=== PATIENT | female | born 1940 | race Caucasian/White ===

== ENCOUNTER → 2016-09-20 | Outpatient (CLI) | payer MEDICARE, OTHER ==
[2016-09-20 10:40] LABS: Blood Urea Nitrogen 27 mg/dL (7-17); Non-African American GFR(MDRD) 53 (>60 ml/min/1.73 sqM)
--- NOTE | 2016-09-20 17:28 | CT ---
EXAMINATION TYPE: CT ChestAbdPelvis w con DATE OF EXAM: 09/20/2016 12:15 PM INDICATION: rectal ca COMPARISON: 09/19/2015 CT DLP: 1048 mGycm CONTRAST: Performed with Oral Contrast and with IV Contrast, patient injected with 80 mL of Visipaque 320. TECHNIQUE: Axial images at 5 mm thick sections. Reconstructed images in the coronal plane. Delayed images through the kidneys. FINDINGS: CT CHEST: Portion of the thyroid visualized is normal. Some streak atelectasis or scarring is in the posterior right lung base this is improved from the com parison 09/19/2015 There is a prominent pretracheal lymph node above the clarence estimated at 1.0 cm with a large fatty h ilum. This is an interval finding. The ascending aorta diameter at the level of the main pulmonary artery is 2.9 cm. The main pulmonary artery diameter at the bifurcation is 2.2 cm. Some coronary artery calcification is present. CT ABDOMEN: Liver: Tiny cyst is within the left lobe of the liver. Couple of additional small hypodensities too s mall to classify may be additional cyst. There is a cyst at the inferior right lobe liver. Spleen: There is a large calcification at the hilum of the spleen. Couple of punctate hypodensities a re within the medial spleen could be small splenic cysts. Pancreas: Normal Adrenal glands: Left adrenal gland is slightly prominent at 0.9 cm. This is somewhat hypodense and is present previously. Right adrenal gland appears normal. Gallbladder: Normal Kidneys: No masses are evident. No hydronephrosis is present. There is a superior anterior cortical renal cyst on the left kidney. Kidneys otherwise appear unremarkable. Delayed images were obtained through the kidneys, which remain unremarkable. Aorta: Vascular calcification is within the aorta. Inferior vena cava: Normal. CT PELVIS: There is perirectal thickening. This extends to the sigmoid colon. This is improved from the comparis on. Bowel loops otherwise appear unremarkable. There are loops of bowel which are incompletely disten ded or lack oral contrast limiting their evaluation. Diverticular changes are within the sigmoid colo n. Appendix: Not identified Urinary bladder: Urinary bladder appears within normal limits. Mild wall thickening diffusely is not excluded. Genitourinary structures: There is a hypodense structure at the vaginal cuff region. Correlate with t he patient's surgical history. Thickened endometrium within the atrophic uterus is within the differe ntial. An ovarian cyst could be considered. The ovaries are not identified. This area measures 2.3 x 3.3 x 2.4 cm. This area appears to correspond to the previous examination suggesting this was the [place]. Osseous structures: No suspicious lytic or sclerotic lesions. There is an old superior T12 endplate c ompression deformity. IMPRESSIONS: 1. No suspicious changes for metastatic disease. 2. Pelvic ultrasound is recommended to reevaluate what appears to be low density thickening through t he endometrial canal of the uterus. 3. Perirectal thickening which appears to be improving from comparison.
== END | disposition home or self-care (01) ==
LOC: RADCTMAIN 09:55
PROVIDERS: ATTEND Internal Medicine Hematology & Oncology
DX: Z03.89 Encounter for observation for other suspected diseases and conditions ruled out (principal); C21.1 Malignant neoplasm of anal canal
CPT/HCPCS: 82565; 84520; 71260; 74177; 36415; Q9967

== ENCOUNTER 2016-10-07 09:37 | Emergency (ER) | payer MEDICARE, OTHER ==
[2016-10-07] MEDS ORDERED: SODIUM CHLORIDE 0.9% 1,000 ML IV STA ×2 (09:56)
[2016-10-07] MEDS ORDERED: ACETAMINOPHEN TAB 500 MG TAB PO STA (09:56)
[2016-10-07 10:13] LABS: Anisocytosis Slight; Basophils % (A) 0 %; CH 30.9; CHCM 32.3; Eosinophils % (A) 0 %; HCT 30.1 % (34.0-46.0); HDW 2.94; HGB 9.8 gm/dL (11.4-16.0); Luc # (Auto) 0.18; Luc % (Auto) 3; Lymphocytes # (A) 0.4 k/uL (1.0-4.8); Lymphocytes % (A) 7 %; MCH 31.4 pg (25.0-35.0); MCHC 32.6 g/dL (31.0-37.0); MCV 96.4 fL (80.0-100.0); Mean Platelet Volume 6.7; Monocytes # (A) 0.3 k/uL (0-1.0); Monocytes % (A) 5 %; Neutrophils # (A) 5.9 k/uL (1.3-7.7); Neutrophils % (A) 86 %; RBC 3.12 m/uL (3.80-5.40); WBC 6.9 k/uL (3.8-10.6); WBC (Perox) 7.44
[2016-10-07 10:17] LABS: INR 1.1 (<1.1); Partial Thromboplastin Time 29.2 sec (22.0-30.0); Prothrombin Time 10.8 sec (9.0-12.0)
--- NOTE | 2016-10-07 10:24 | ED ---
General Adult HPI - General Chief complaint: Weakness Stated complaint: Weakness Time Seen by Provider: 10/07/16 09:40 Source: EMS, RN notes reviewed Mode of arrival: EMS - History of Present Illness Initial comments: Patient 76-year-old female who presents emergency room today by EMS with a chief complaint of weakness that has been increased over the last week. Patient does admit that when she tries to stand up she feels like her legs are weak. She states she's noticed that she has been ongoing and increasing over the last week. She denies any other complaints or symptoms. Does admit to a history of anal cancer and states she is in remission. Patient states she was unaware of fever. She denies any cough congestion. Patient denies any recent shortness of breath, chest pain, back pain, abdominal pain, nausea or vomiting, numbness or tingling, dysuria or hematuria, constipation or diarrhea, headaches or visual changes, or any other complaints. - Related Data Home Medications Medication Instructions Recorded Confirmed ALPRAZolam [Xanax] 0.25 mg PO BID 10/07/16 10/07/16 Simvastatin [Zocor] 40 mg PO HS 10/07/16 10/07/16 Previous Rx's Medication Instructions Recorded Donepezil HCl [Aricept] 5 mg PO HS #30 tablet 05/10/16 Mirtazapine 30 mg PO HS #30 tablet 05/10/16 Nitrofurantoin Monohyd/M-Cryst 100 mg PO Q12HR #14 cap 10/07/16 [Macrobid] Allergies Allergy/AdvReac Type Severity Reaction Status Date / Time No Known Allergies Allergy Verified 10/07/16 10:03 Review of Systems ROS Statement: Those systems with pertinent positive or pertinent negative responses have been documented in the HPI. ROS Other: All systems not noted in ROS Statement are negative. Past Medical History Past Medical History: Cancer, Hyperlipidemia, Hypertension, Memory Impairment, Pneumonia, Pulmonary Embolus (PE), Syncope Additional Past Medical History / Comment(s): CANCER- CHEMO/RADIATION OF THE ANAL canal 2013, murmur, arthritis, anemia History of Any Multi-Drug Resistant Organisms: None Reported Past Surgical History: Tonsillectomy Additional Past Surgical History / Comment(s): bilat lasik sx. colonoscopy Past Anesthesia/Blood Transfusion Reactions: No Reported Reaction Past Psychological History: Anxiety, Depression Smoking Status: Current every day smoker Past Alcohol Use History: None Reported, Rare Additional Past Alcohol Use History / Comment(s): started smoking as a teenager- used to smoke 1 ppd now smokes 3 cig per day but pt stated does inhale them. Past Drug Use History: None Reported - Past Family History Father Family Medical History: Cancer Mother Family Medical History: Cancer Brother(s) Family Medical History: Cancer Sister(s) Family Medical History: Cancer General Exam - General Exam Comments Initial Comments: General: The patient is awake and alert, in no distress, and does not appear acutely ill. Eye: Pupils are equal, round and reactive to light, extra-ocular movements are intact. No nystagmus. There is normal conjunctiva bilaterally. No signs of icterus. Ears, nose, mouth and throat: There are moist mucous membranes and no oral lesions. Neck: The neck is supple, there is no tenderness or JVD. Cardiovascular: There is a regular rate and rhythm. No murmur, rub or gallop is appreciated. Respiratory: Lungs are clear to auscultation, respirations are non-labored, breath sounds are equal. No wheezes, stridor, rales, or rhonchi. Gastrointestinal: Soft, non-distended, non-tender abdomen without masses or organomegaly noted. There is no rebound or guarding present. No CVA tenderness. Bowel sounds are unremarkable. Musculoskeletal: Normal ROM, no tenderness. Strength 5/5. Sensation intact. Pulses equal bilaterally 2+. Neurological: A&O x 3. CN II-XII intact, There are no obvious motor or sensory deficits. Coordination appears grossly intact. Speech is normal. Skin: Skin is warm and dry and no rashes or lesions are noted. Psychiatric: Cooperative, appropriate mood & affect, normal judgment. Course Vital Signs 10/07/16 10/07/16 09:39 10:43 Temperature 101.3 F H 101 F H Pulse Rate 95 93 Respiratory 20 20 Rate Blood Pressure 143/65 150/65 O2 Sat by Pulse 96 94 L Oximetry EKG Findings - EKG Comments: EKG Findings:: EKG is performed at 1035: A 12-lead EKG was performed and interpreted by me as showing the following: Rate is 95, and rhythm is normal sinus. There are normal QRS complexes and normal R-wave progression. ST segments have no elevation or depression, and ND segments appear normal. Medical Decision Making - Medical Decision Making Patient reexamined at this time shows no signs of distress. Patient did have fever at triage. Patient labs been reviewed and no elevated white count. Patient does have possible mild urinary tract infection. Given dose of Rocephin here in the emergency room. Patient has no physical complaints other than feeling generalized weakness for the past week. Patient's chest x-ray is negative for any sign of pneumonia. She be continued on antibiotics cover for urinary tract infection advised to follow-up the family doctor. It was discussed with patient about admission to the hospital. She states she does not want to stay and would rather go home. Case discussed in detail with attending physician Dr. Prabhakar - Lab Data Result diagrams: 10/07/16 09:46 10/07/16 09:46 Lab Results 10/07/16 10/07/16 10/07/16 Range/Units 09:46 09:46 09:46 WBC 6.9 (3.8-10.6) k/uL RBC 3.12 L (3.80-5.40) m/uL Hgb 9.8 L (11.4-16.0) gm/dL Hct 30.1 L (34.0-46.0) % MCV 96.4 (80.0-100.0) fL MCH 31.4 (25.0-35.0) pg MCHC 32.6 (31.0-37.0) g/dL RDW 17.0 H (11.5-15.5) % Plt Count 157 (150-450) k/uL Neutrophils % 86 % Lymphocytes % 7 % Monocytes % 5 % Eosinophils % 0 % Basophils % 0 % Neutrophils # 5.9 (1.3-7.7) k/uL Lymphocytes # 0.4 L (1.0-4.8) k/uL Monocytes # 0.3 (0-1.0) k/uL Eosinophils # 0.0 (0-0.7) k/uL Basophils # 0.0 (0-0.2) k/uL Anisocytosis Slight PT (9.0-12.0) sec INR (<1.1) APTT (22.0-30.0) sec Sodium 139 (137-145) mmol/L Potassium 3.8 (3.5-5.1) mmol/L Chloride 105 (98-107) mmol/L Carbon Dioxide 23 (22-30) mmol/L Anion Gap 11 mmol/L BUN 30 H (7-17) mg/dL Creatinine 1.05 H (0.52-1.04) mg/dL Est GFR (MDRD) Af Amer >60 (>60 ml/min/1.73 sqM) Est GFR (MDRD) Non-Af 51 (>60 ml/min/1.73 sqM) Glucose 123 H (74-99) mg/dL Plasma Lactic Acid Phu 1.2 (0.7-2.0) mmol/L Calcium 9.2 (8.4-10.2) mg/dL Total Bilirubin 0.7 (0.2-1.3) mg/dL AST 40 H (14-36) U/L ALT 28 (9-52) U/L Alkaline Phosphatase 68 (38-126) U/L Total Creatine Kinase (30-135) U/L CK-MB (CK-2) (0.0-2.4) ng/mL CK-MB (CK-2) Rel Index Troponin I (0.000-0.034) ng/mL Total Protein 7.3 (6.3-8.2) g/dL Albumin 3.8 (3.5-5.0) g/dL Urine Color Urine Appearance (Clear) Urine pH (5.0-8.0) Ur Specific [place] (1.001-1.035) Urine Protein (Negative) Urine Glucose (UA) (Negative) Urine Ketones (Negative) Urine Blood (Negative) Urine Nitrite (Negative) Urine Bilirubin (Negative) Urine Urobilinogen (<2.0) mg/dL Ur Leukocyte Esterase (Negative) Urine RBC (0-5) /hpf Urine WBC (0-5) /hpf Ur Squamous Epith Cells (0-4) /hpf Hyaline Casts (0-2) /lpf Granular Casts (0) /lpf Urine Mucus (None) /hpf 10/07/16 10/07/16 10/07/16 Range/Units 09:46 09:46 10:11 WBC (3.8-10.6) k/uL RBC (3.80-5.40) m/uL Hgb (11.4-16.0) gm/dL Hct (34.0-46.0) % MCV (80.0-100.0) fL MCH (25.0-35.0) pg MCHC (31.0-37.0) g/dL RDW (11.5-15.5) % Plt Count (150-450) k/uL Neutrophils % % Lymphocytes % % Monocytes % % Eosinophils % % Basophils % % Neutrophils # (1.3-7.7) k/uL Lymphocytes # (1.0-4.8) k/uL Monocytes # (0-1.0) k/uL Eosinophils # (0-0.7) k/uL Basophils # (0-0.2) k/uL Anisocytosis PT 10.8 (9.0-12.0) sec INR 1.1 (<1.1) APTT 29.2 (22.0-30.0) sec Sodium (137-145) mmol/L Potassium (3.5-5.1) mmol/L Chloride (98-107) mmol/L Carbon Dioxide (22-30) mmol/L Anion Gap mmol/L BUN (7-17) mg/dL Creatinine (0.52-1.04) mg/dL Est GFR (MDRD) Af Amer (>60 ml/min/1.73 sqM) Est GFR (MDRD) Non-Af (>60 ml/min/1.73 sqM) Glucose (74-99) mg/dL Plasma Lactic Acid Phu (0.7-2.0) mmol/L Calcium (8.4-10.2) mg/dL Total Bilirubin (0.2-1.3) mg/dL AST (14-36) U/L ALT (9-52) U/L Alkaline Phosphatase (38-126) U/L Total Creatine Kinase 121 (30-135) U/L CK-MB (CK-2) 0.9 (0.0-2.4) ng/mL CK-MB (CK-2) Rel Index 0.7 Troponin I 0.012 (0.000-0.034) ng/mL Total Protein (6.3-8.2) g/dL Albumin (3.5-5.0) g/dL Urine Color Yellow Urine Appearance Clear (Clear) Urine pH 6.5 (5.0-8.0) Ur Specific [place] 1.015 (1.001-1.035) Urine Protein 2+ H (Negative) Urine Glucose (UA) Negative (Negative) Urine Ketones Negative (Negative) Urine Blood Moderate H (Negative) Urine Nitrite Negative (Negative) Urine Bilirubin Negative (Negative) Urine Urobilinogen <2.0 (<2.0) mg/dL Ur Leukocyte Esterase Negative (Negative) Urine RBC 12 H (0-5) /hpf Urine WBC 6 H (0-5) /hpf Ur Squamous Epith Cells <1 (0-4) /hpf Hyaline Casts 1 (0-2) /lpf Granular Casts 5 (0) /lpf Urine Mucus Rare H (None) /hpf Disposition Clinical Impression: UTI (urinary tract infection) Disposition: HOME SELF-CARE Condition: Good Instructions: Urinary Tract Infection in Women (ED) Additional Instructions: Please use biotic as prescribed for urinary tract infection. Please continue Tylenol for fevers every 6 hours. Please follow-up with family doctor in the next 2 days. Please return to emergency room if the symptoms increase or worsen or for any other concerns. Prescriptions: Nitrofurantoin Monohyd/M-Cryst [Macrobid] 100 mg PO Q12HR #14 cap Time of Disposition: 12:04
[2016-10-07 10:31] LABS: Appearance,Urine Clear (Clear); Bilirubin,Urine Negative (Negative); Glucose,Urine (UA) Negative (Negative); Granular Casts,Urine 5 /lpf (0); Ketones,Urine Negative (Negative); Leukocyte Esterase,Urine Negative (Negative); Mucus,Urine Rare /hpf; Nitrite,Urine Negative (Negative); PH, Urine 6.5 (5.0-8.0); Particle Count 5339; Protein,Urine 2+ (Negative); RBC,Urine 12 /hpf (0-5); Specific Gravity,Urine 1.015 (1.001-1.035); Squamous Epithelial Cell,Urine <1 /hpf (0-4); UA Billing (MACRO vs. MICRO) MICRO; Urobilinogen,Urine <2.0 mg/dL (<2.0); WBC,Urine 6 /hpf (0-5)
--- NOTE | 2016-10-07 10:34 | XR ---
EXAMINATION TYPE: XR chest 2V DATE OF EXAM: 10/07/2016 10:21 AM COMPARISON: 04/26/2016 TECHNIQUE: PA and lateral views submitted. HISTORY: Fever FINDINGS: The lungs are clear and there is no pneumothorax, pleural effusion, or focal pneumonia. Arthropathy of the shoulders. Hyperinflation suggests COPD. Degenerative change of the spine. Nodular density ov erlying the lower lung zones aren't typical nipple shadows. IMPRESSION: 1. No acute process. Correlate for COPD.
[2016-10-07 10:46] LABS: ALT 28 U/L (9-52); AST 40 U/L (14-36); Alkaline Phosphatase 68 U/L (38-126); Anion Gap 11 mmol/L; Blood Urea Nitrogen 30 mg/dL (7-17); Calcium 9.2 mg/dL (8.4-10.2); Carbon Dioxide 23 mmol/L (22-30); Chloride 105 mmol/L (98-107); Glucose 123 mg/dL (74-99); Non-African American GFR(MDRD) 51 (>60 ml/min/1.73 sqM); Potassium 3.8 mmol/L (3.5-5.1); Sodium 139 mmol/L (137-145); Total Bilirubin 0.7 mg/dL (0.2-1.3); Total Protein 7.3 g/dL (6.3-8.2)
[2016-10-07 11:31] LABS: Creatine Kinase MB 0.9 ng/mL (0.0-2.4); Troponin I 0.012 ng/mL (0.000-0.034)
[2016-10-07 12:54] VITALS: BP 95/53; PULSE 87; RESP 18; TEMP 98.9
== END 2016-10-07 13:00 | disposition home or self-care (01) ==
LOC: EC 09:37
DX: N39.0 Urinary tract infection, site not specified (principal); R53.1 Weakness; F32.9 Major depressive disorder, single episode, unspecified; I10 Essential (primary) hypertension; E78.5 Hyperlipidemia, unspecified; F41.9 Anxiety disorder, unspecified; F17.210 Nicotine dependence, cigarettes, uncomplicated; Z79.899 Other long term (current) drug therapy; Z85.048 Personal history of other malignant neoplasm of rectum, rectosigmoid junction, and anus
CPT/HCPCS: 36415; 93005; 80053; 82550; 82553; 83605; 84484; 85025; 85610; 85730; 81001; 87040; 87086; 71020; 99285; 96365; 96361 ×3; J0696

== ENCOUNTER 2016-10-30 13:21 | Day surgery (SDC) | payer MEDICARE, OTHER ==
[2016-10-25 10:51] VITALS: BMI 18.3
[~2016-10-30 13:21] MED LIST: LACTATED RINGERS 1,000 ML IV SCH; LIDOCAINE 1% 20 ML VIAL (10MG/ML) FOR IV START INTRADERMA PRN
[2016-10-30 14:01] VITALS: TEMP 98.4
[2016-10-30] MEDS ORDERED: PROPOFOL 10 MG/ML 20 ML VIAL IV ONE (14:09)
[2016-10-30] MEDS ORDERED: LIDOCAINE 1% INJ 10MG/ML (20 ML MDV) ONE (14:09)
--- NOTE | 2016-10-30 14:24 | P.GSHP ---
History of Present Illness H&P Date: 10/30/16 Chief Complaint: Anemia, GI bleed This a 76-year-old female referred from Dr. Prado. Patient presents today for colonoscopy. She's had issues with anemia and GI bleed. - Constitutional Constitutional: Reports as per HPI Past Medical History Past Medical History: Cancer, Dementia, Hyperlipidemia, Hypertension, Memory Impairment, Pneumonia, Pulmonary Embolus (PE), Syncope Additional Past Medical History / Comment(s): CANCER- CHEMO/RADIATION OF THE ANAL canal 2013, murmur, arthritis, anemia,UTI,weakness using walker History of Any Multi-Drug Resistant Organisms: None Reported Past Surgical History: Tonsillectomy Additional Past Surgical History / Comment(s): bilat lasik sx. colonoscopy Past Anesthesia/Blood Transfusion Reactions: No Reported Reaction Additional Past Anesthesia/Blood Transfusion Reaction / Comment(s): Andreina Caregiver at [facility] stated "not aware of any anesthesia problems for pt and unknown family hx" Past Psychological History: Anxiety, Depression Smoking Status: Current every day smoker Past Alcohol Use History: None Reported Additional Past Alcohol Use History / Comment(s): started smoking as a teenager- used to smoke 1 ppd now smokes 3 cig per day but pt stated does inhale them. Past Drug Use History: None Reported - Past Family History Father Family Medical History: Cancer Mother Family Medical History: Cancer Brother(s) Family Medical History: Cancer Sister(s) Family Medical History: Cancer Medications and Allergies Home Medications Medication Instructions Recorded Confirmed Type ALPRAZolam [Xanax] 0.25 mg PO QAM 10/07/16 10/30/16 History Cholecalciferol [Vitamin D3] 5,000 unit PO Q7D 10/25/16 10/30/16 History Cranberry Fruit Concentrate 450 mg PO BID 10/25/16 10/30/16 History [Cranberry] Ibuprofen [Motrin] 600 mg PO Q8HR PRN 10/25/16 10/30/16 History Levothyroxine Sodium [Synthroid] 25 mcg PO QAM 10/25/16 10/30/16 History Allergies Allergy/AdvReac Type Severity Reaction Status Date / Time No Known Allergies Allergy Verified 10/25/16 10:42 Surgical - Exam Vital Signs Temp Pulse Resp BP Pulse Ox 98.4 F 91 18 165/63 97 10/30/16 13:58 10/30/16 13:58 10/30/16 13:58 10/30/16 13:58 10/30/16 13:58 - General well developed, no distress - Eyes PERRL - ENT normal pinna - Neck no masses - Respiratory normal expansion - Cardiovascular Rhythm: regular - Abdomen Abdomen: soft, non tender Assessment and Plan Plan: Anemia, GI bleed. We'll perform colonoscopy.
[2016-10-30 14:49] VITALS: RESP 16
--- NOTE | 2016-10-30 14:53 | P.OP ---
Date of Procedure: 10/30/16 Preoperative Diagnosis: Anemia Blade Postoperative Diagnosis: Anal scarring Large rectal ulcer at 10 cm Procedure(s) Performed: Colonoscopy Implants: Anesthesia: MAC Surgeon: Nikolas Gardner Pathology: other (Rectum) Condition: stable Disposition: PACU Indications for Procedure: Operative Findings: Description of Procedure: The patient's placed on the endoscopy table in the lateral position. She received IV sedation. Digital rectal exam was performed which revealed anal scarring secondary to radiation therapy. The flexible colonoscope was then placed patient anus and passed throughout the entire colon. The ileocecal valve sutures. The cecum, ascending and transverse colon appeared normal. There is no blood seen the colon. There no polyps or tumors. Scope was then brought back into the descending and sigmoid colon and this appeared normal. Scope was then brought back into the rectum and at the 10 cm sukumar there was a large ulcer seen. There is evidence of scarring of the ulcer. A several biopsies of the ulcer and surrounding colonic tissue were performed. Scope was then withdrawn.
[2016-10-30 15:17] VITALS: BP 136/76; PULSE 77
== END 2016-10-30 15:47 | disposition home or self-care (01) ==
LOC: ORWHC2ENDO 13:21
PROVIDERS: ATTEND Surgery
DX: K62.6 Ulcer of anus and rectum (principal); K62.89 Other specified diseases of anus and rectum; Z92.3 Personal history of irradiation; I10 Essential (primary) hypertension; E78.5 Hyperlipidemia, unspecified; Z86.711 Personal history of pulmonary embolism; E07.9 Disorder of thyroid, unspecified; F03.90 Unspecified dementia, unspecified severity, without behavioral disturbance, psychotic disturbance, mood disturbance, and anxiety; F41.9 Anxiety disorder, unspecified; F32.9 Major depressive disorder, single episode, unspecified; F17.210 Nicotine dependence, cigarettes, uncomplicated; Z79.899 Other long term (current) drug therapy
CPT/HCPCS: 88305; 45380; J2001; J2704

== ENCOUNTER → 2016-12-24 | Outpatient (CLI) | payer MEDICARE, OTHER ==
--- NOTE | 2016-12-25 07:48 | MM ---
Reason for exam: screening (asymptomatic). Last mammogram was performed 3 years ago. History: Patient is postmenopausal and has history of colon cancer at age 56. Family history of breast cancer in mother at age 65. Physical Findings: A clinical breast exam by your physician is recommended on an annual basis and results should be correlated with mammographic findings. MG 3D Screening Mammo W/Cad Bilateral CC and MLO view(s) were taken. Prior study comparison: December 09, 2013, bilateral MG screening mammo w CAD. August 28, 2012, [facility] DIGITAL RIGHT MAMMOGRAM w/CAD. The breast tissue is heterogeneously dense. This may lower the sensitivity of mammography. No significant changes when compared with prior studies. ASSESSMENT: Benign, BI-RAD 2 RECOMMENDATION: Routine screening mammogram of both breasts in 1 year.
== END | disposition home or self-care (01) ==
LOC: RADMAMWWP 13:16
PROVIDERS: ATTEND Family Medicine
DX: Z12.31 Encounter for screening mammogram for malignant neoplasm of breast (principal)
CPT/HCPCS: 77063; G0202

== ENCOUNTER 2017-07-14 08:29 | Emergency (ER) | payer MEDICARE, OTHER ==
[2017-07-14 08:37] VITALS: RESP 16
--- NOTE | 2017-07-14 08:45 | ED ---
General Adult HPI - General Source: patient, EMS, RN notes reviewed Mode of arrival: EMS Limitations: altered mental status <Sarah Petersen - Last Filed: 07/14/17 09:40> <Adria Bray - Last Filed: 07/14/17 09:45> - General Chief complaint: Fall Stated complaint: fall, constipation Time Seen by Provider: 07/14/17 08:34 - History of Present Illness Initial comments: 77-year-old female presents to the emergency department with a chief complaint of fall. The patient slipped getting out of her bed onto her bottom today. There is question if she did have a head injury or not. The patient is a poor historian and simply states that her bottom hurts. They state they've also been concerned about constipation with the patient as well. Patient states that besides her bottom hurting she has no other pain. The patient does appear to be at baseline with history given from home where the patient comes from. Patient denies pain anywhere else she denies any chest pain she denies any vomiting. She denies any shortness of breath. She states it was a slip out of bed. (Sarah Petersen) - Related Data Home Medications Medication Instructions Recorded Confirmed ALPRAZolam [Xanax] 0.25 mg PO DAILY 10/07/16 07/14/17 Levothyroxine Sodium [Synthroid] 25 mcg PO DAILY 10/25/16 07/14/17 Calcium Polycarbophil [Fibercon] 625 mg PO BID 07/06/17 07/14/17 Carbamide Peroxide [Debrox Otic] 5 drops RIGHT EAR HS PRN 07/06/17 07/14/17 Cranberry 425mg Cap 425 mg PO BID 07/06/17 07/14/17 Ergocalciferol (Vitamin D2) 50,000 unit PO BERGER 07/06/17 07/14/17 [Vitamin D2] Previous Rx's Medication Instructions Recorded Mirtazapine 30 mg PO HS #30 tablet 05/10/16 Allergies Allergy/AdvReac Type Severity Reaction Status Date / Time No Known Allergies Allergy Verified 07/14/17 08:49 Review of Systems ROS Other: All systems not noted in ROS Statement are negative. <Sarah Petersen - Last Filed: 07/14/17 09:40> ROS Other: All systems not noted in ROS Statement are negative. <Adria Bray - Last Filed: 07/14/17 09:45> ROS Statement: Those systems with pertinent positive or pertinent negative responses have been documented in the HPI. Past Medical History Past Medical History: Cancer, Dementia, Hyperlipidemia, Hypertension, Memory Impairment, Pneumonia, Pulmonary Embolus (PE), Syncope Additional Past Medical History / Comment(s): CANCER- CHEMO/RADIATION OF THE ANAL canal 2013, murmur, arthritis, anemia,UTI,weakness using walker History of Any Multi-Drug Resistant Organisms: None Reported Past Surgical History: Tonsillectomy Additional Past Surgical History / Comment(s): bilat lasik sx. colonoscopy Past Anesthesia/Blood Transfusion Reactions: No Reported Reaction Additional Past Anesthesia/Blood Transfusion Reaction / Comment(s): Andreina Caregiver at [facility] stated "not aware of any anesthesia problems for pt and unknown family hx" Past Psychological History: Anxiety, Depression Smoking Status: Current some day smoker Past Alcohol Use History: None Reported Past Drug Use History: None Reported - Past Family History Father Family Medical History: Cancer Mother Family Medical History: Cancer Brother(s) Family Medical History: Cancer Sister(s) Family Medical History: Cancer <Sarah Petersen - Last Filed: 07/14/17 09:40> General Exam Limitations: altered mental status General appearance: alert, in no apparent distress Head exam: Present: atraumatic, normocephalic, normal inspection Eye exam: Present: normal appearance, PERRL, EOMI. Absent: scleral icterus, conjunctival injection, periorbital swelling ENT exam: Present: normal exam, mucous membranes moist Neck exam: Present: normal inspection. Absent: tenderness, meningismus, lymphadenopathy Respiratory exam: Present: normal lung sounds bilaterally. Absent: respiratory distress, wheezes, rales, rhonchi, stridor Cardiovascular Exam: Present: regular rate GI/Abdominal exam: Present: soft, normal bowel sounds. Absent: distended, tenderness, guarding, rebound, rigid Extremities exam: Present: normal inspection, full ROM, normal capillary refill. Absent: tenderness, pedal edema, joint swelling, calf tenderness Back exam: Present: normal inspection, full ROM. Absent: tenderness, rash noted Neurological exam: Present: alert, CN II-XII intact, reflexes normal. Absent: motor sensory deficit Psychiatric exam: Present: normal affect, normal mood Skin exam: Present: warm, dry, intact, normal color. Absent: rash <Sarah Petersen - Last Filed: 07/14/17 09:40> Course <Sarah Petersen - Last Filed: 07/14/17 09:40> <Adria Bray - Last Filed: 07/14/17 09:45> Vital Signs 07/14/17 08:33 Temperature 97.1 F L Pulse Rate 96 Respiratory 16 Rate Blood Pressure 129/73 O2 Sat by Pulse 99 Oximetry - Reevaluation(s) Reevaluation #1: 07/14/17 09:45 PA supervision: I did proceed a [id number] evaluation with the patient did discuss Pfizer. Patient is resting comfortably without any distress at this time. I do agree with the assessment and plan. (Adria Bray) Medical Decision Making - Radiology Data Radiology results: report reviewed, image reviewed <Sarah Petersen - Last Filed: 07/14/17 09:40> <Adria Bray - Last Filed: 07/14/17 09:45> - Medical Decision Making 77-year-old female presents to the emergency department with a chief complaint of fall out of her bed. This time x-rays have been reviewed. Patient did have a bowel movement here. At this time we did discuss Tylenol for pain control home. We discussed return parameters all questions. Patient family stated they understood and they are in agreement this plan. All questions have been answered. This time the patient will be discharged. (Sarah Petersen) Disposition Time of Disposition: 09:42 <Sarah Petersen - Last Filed: 07/14/17 09:40> <Adria Bray - Last Filed: 07/14/17 09:45> Clinical Impression: Fall, Sacral contusion Disposition: HOME SELF-CARE Condition: Stable Instructions: Fall Prevention for Older Adults (ED) Additional Instructions: Please use medication as discussed. Please follow up with family doctor if symptoms have not improved over the next two days. Please return to the emergency room if your symptoms increase or worsen or for any other concerns. Referrals: Sean Hinojosa MD [STAFF PHYSICIAN] - 1-2 days
--- NOTE | 2017-07-14 09:15 | CT ---
EXAMINATION TYPE: CT brain alberto lockett DATE OF EXAM: 07/14/2017 COMPARISON: NONE HISTORY: Fall, not verbalizing CT DLP: 1244.40 mGycm, Automated exposure control for dose reduction was used. CONTRAST: None CT of the brain is performed utilizing 3 mm thick sections through the posterior fossa and 3 mm thick sections through the remaining calvarium. Study is performed within 24 hours of arrival to the hospital. No abnormal hyperdensity is present to suggest an acute intracranial hemorrhage. No mass lesion is evident. No acute infarcts are evident. Periventricular white matter hypodensity is present, likely on the ba sis of chronic white matter ischemic changes. Findings are progressive from 04/26/2016. Ventricles and sulci are prominent for the patient age. Paranasal sinuses and mastoid air cells within the [id number] are clear. IMPRESSIONS: 1. Progressive but chronic appearing periventricular white matter ischemic type changes. Findings are progressive from April 2016. Consider MRI for additional evaluation. CT cervical spine. COMPARISON: None CT of the cervical spine is performed in the axial plane at 2 mm thick sections. Reconstructed image s in the coronal, and sagittal plane are reviewed on the computer. No acute fractures are evident. There is mild straightening of the cervical spine. Minimal retrolisthesis of C4 on C5 may be present which can be related to some degenerative change. There is loss of disc height C3-4. Uncovertebral joint hypertrophy has mild foraminal narrowing. Some mild endplate spurring has mild anterior thecal sac compression. No stenosis in the AP dimension is evident. There is uncovertebral joint hypertrophy C4-5 with severe right foraminal stenosis. Mild left foramin al stenosis is present. Endplate spurring from the superior endplate of C5 has moderate thecal sac co mpression. No AP spinal canal stenosis present. There is loss of disc height through this disc level. Endplate spurring and loss of disc height is present C5-6. Uncovertebral joint hypertrophy is moderat e bilateral foraminal narrowing. There is mild disc space narrowing C6-7. Uncovertebral joint hypertrophy is mild foraminal narrowing. Vertebral body heights are preserved. Emphysematous changes are within the lung apices. IMPRESSIONS: 1. No acute osseous abnormality. 2. Multilevel degenerative disc changes with uncovertebral joint hypertrophy contributing to foramina l narrowing discussed above.
--- NOTE | 2017-07-14 09:26 | XR ---
EXAMINATION TYPE: XR abdomen 2V DATE OF EXAM: 07/14/2017 COMPARISON: NONE HISTORY: Pain TECHNIQUE: One view abdominal series FINDINGS: The osseous structures are intact. The bowel gas pattern is nonspecific. Lung bases are clear. Calci fications in the pelvis and abdomen noted likely vascular. Degenerative change of the lumbar spine. S uspect a splenic artery aneurysm measuring approximately 1 cm. IMPRESSION: 1. Nonspecific abdomen. 2. 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
--- NOTE | 2017-07-14 09:27 | XR ---
EXAM TYPE: LUMBAR SPINE X RAY SERIES COMPARISON: NONE HISTORY: Pain TECHNIQUE: 4 views are submitted. FINDINGS: Alignment is anatomic. The pedicles are intact. The transverse processes are intact. There is no s pondylolysis or spondylolisthesis. Diffuse osteopenia noted. Vascular calcifications and probable sp lenic artery aneurysm measuring 1 cm. Facet arthropathy at levels L2-S1 with degenerative disc diseas e at L5-S1 and grade 1 anterolisthesis. Could not exclude a spondylolysis. SI joint arthropathy on th e left. IMPRESSION: 1. Degenerative disc disease L5-S1 with facet arthropathy and grade 1 anterolisthesis. Correlate clin ically.
--- NOTE | 2017-07-14 09:29 | XR ---
EXAMINATION TYPE: XR sacrum coccyx DATE OF EXAM: 07/14/2017 COMPARISON: NONE HISTORY: Pain Three views are submitted. Sacrum is intact. Arthropathy of the left SI joint noted. Coccyx appears to be intact. Visualized pelvic structures intact. Grade 1 anterolisthesis L5 on S1 suspected spon dylolysis. IMPRESSION: 1. Grade 1 anterolisthesis L5 on S1 with severe degenerative disc disease. 2. No obvious acute fracture of the sacrum or coccyx. If symptoms persist consider CT scan.
[2017-07-14 10:13] VITALS: BP 137/71; PULSE 91; TEMP 97.2
== END 2017-07-14 11:16 | disposition home or self-care (01) ==
LOC: EC 08:29
DX: S30.0XXA Contusion of lower back and pelvis, initial encounter (principal); R41.82 Altered mental status, unspecified; K59.00 Constipation, unspecified; F41.9 Anxiety disorder, unspecified; F17.200 Nicotine dependence, unspecified, uncomplicated; Z79.899 Other long term (current) drug therapy; Z85.048 Personal history of other malignant neoplasm of rectum, rectosigmoid junction, and anus; Z92.21 Personal history of antineoplastic chemotherapy; Z92.3 Personal history of irradiation; W06.XXXA Fall from bed, initial encounter; Y92.009 Unspecified place in unspecified non-institutional (private) residence as the place of occurrence of the external cause
CPT/HCPCS: 70450; 72100; 72125; 72220; 74019; 99284

== ENCOUNTER 2017-07-23 14:47 | Inpatient (IN) | payer MEDICARE, OTHER ==
[2017-07-23] MEDS ORDERED: SODIUM CHLORIDE 0.9% 500 ML IV STA (15:04)
[2017-07-23] MEDS ORDERED: ASPIRIN 325 MG TAB PO STA (15:04)
--- NOTE | 2017-07-23 15:17 | ED ---
Recheck HPI - General Chief Complaint: Recheck/Abnormal Lab/Rx Stated Complaint: abnormal labs Time Seen by Provider: 07/23/17 14:52 Source: EMS Mode of arrival: EMS Limitations: altered mental status - History of Present Illness Initial Comments: 77-year-old female with past medical history of dementia, HTN, HLD, PE , syncope, and cancer presented for evaluation of abnormal labs. States that she was recently discharged from this hospital and for the last week as had decreased by mouth intake. She had some follow-up labs drawn and per the baking factory worker states that she had a leukocytosis and sent to the ED for further treatment and evaluation. She states that she's been feeling well and denies any other associated symptoms. - Related Data Home Medications Medication Instructions Recorded Confirmed ALPRAZolam [Xanax] 0.25 mg PO DAILY 10/07/16 07/23/17 Levothyroxine Sodium [Synthroid] 25 mcg PO DAILY 10/25/16 07/23/17 Calcium Polycarbophil [Fibercon] 625 mg PO BID 07/06/17 07/23/17 Carbamide Peroxide [Debrox Otic] 5 drops RIGHT EAR HS PRN 07/06/17 07/23/17 Cranberry 425mg Cap 425 mg PO BID 07/06/17 07/23/17 Ergocalciferol (Vitamin D2) 50,000 unit PO BERGER 07/06/17 07/23/17 [Vitamin D2] Previous Rx's Medication Instructions Recorded Mirtazapine 30 mg PO HS #30 tablet 05/10/16 Allergies Allergy/AdvReac Type Severity Reaction Status Date / Time No Known Allergies Allergy Verified 07/23/17 15:03 Review of Systems ROS Statement: Those systems with pertinent positive or pertinent negative responses have been documented in the HPI. ROS Other: All systems not noted in ROS Statement are negative. Constitutional: Denies: fever, chills Eyes: Denies: eye pain, eye discharge, vision change ENT: Denies: ear pain, throat pain Respiratory: Denies: cough, dyspnea, wheezes Cardiovascular: Denies: chest pain, palpitations, dyspnea on exertion Endocrine: Denies: fatigue, polydipsia, polyuria Gastrointestinal: Denies: abdominal pain, nausea, vomiting, diarrhea, constipation Genitourinary: Denies: urgency, dysuria Musculoskeletal: Denies: back pain, joint swelling, arthralgia, myalgia Skin: Denies: rash, lesions Neurological: Reports: other (baseline dementia). Denies: headache, weakness, confusion Psychiatric: Denies: anxiety, depression Hematological/Lymphatic: Denies: easy bleeding, easy bruising Past Medical History Past Medical History: Cancer, Dementia, Hyperlipidemia, Hypertension, Memory Impairment, Pneumonia, Pulmonary Embolus (PE), Syncope Additional Past Medical History / Comment(s): CANCER- CHEMO/RADIATION OF THE ANAL canal 2013, murmur, arthritis, anemia,UTI,weakness using walker History of Any Multi-Drug Resistant Organisms: None Reported Past Surgical History: Tonsillectomy Additional Past Surgical History / Comment(s): bilat lasik sx. colonoscopy Past Anesthesia/Blood Transfusion Reactions: No Reported Reaction Additional Past Anesthesia/Blood Transfusion Reaction / Comment(s): Andreina Caregiver at [facility] stated "not aware of any anesthesia problems for pt and unknown family hx" Past Psychological History: Anxiety, Depression Smoking Status: Current some day smoker Past Alcohol Use History: None Reported Past Drug Use History: None Reported - Past Family History Father Family Medical History: Cancer Mother Family Medical History: Cancer Brother(s) Family Medical History: Cancer Sister(s) Family Medical History: Cancer General Exam Limitations: altered mental status General appearance: alert, in no apparent distress Head exam: Present: atraumatic, normocephalic, normal inspection Eye exam: Present: normal appearance, PERRL, EOMI. Absent: scleral icterus, conjunctival injection, periorbital swelling ENT exam: Present: mucous membranes dry, TM's normal bilaterally, normal external ear exam. Absent: normal exam, mucous membranes moist Neck exam: Absent: normal inspection, tenderness Respiratory exam: Present: normal lung sounds bilaterally. Absent: respiratory distress, wheezes, rales, rhonchi, stridor, chest wall tenderness, accessory muscle use, decreased breath sounds, prolonged expiratory Cardiovascular Exam: Present: normal rhythm, tachycardia GI/Abdominal exam: Present: soft. Absent: distended, tenderness, guarding, rebound, rigid Rectal exam: Present: deferred Extremities exam: Present: normal inspection, full ROM Back exam: Present: normal inspection, full ROM Neurological exam: Present: alert, oriented X3 Psychiatric exam: Present: normal affect, normal mood Skin exam: Present: warm, dry, intact Course Vital Signs 07/23/17 07/23/17 14:52 17:36 Temperature 97.8 F Pulse Rate 101 H 94 Respiratory 16 16 Rate Blood Pressure 123/70 119/69 O2 Sat by Pulse 97 96 Oximetry Medical Decision Making - Medical Decision Making 77-year-old female with past medical history as noted above presented for evaluation of leukocytosis on outside labs. On physical examination the patient has rhinorrhea over lungs are clear to auscultation bilaterally abdomen is soft and nontender without peritoneal signs of guarding rigidity or rebound however the bladder is mildly distended with mild tenderness to palpation. Patient is mildly tachycardia however signs are otherwise stable. Patient has baseline dementia and has been evaluated at this facility multiple times for infectious etiology. We'll obtain labs as well as chest x-ray and urinalysis. Labs significant for urinary tract infection and the patient was given a gram of Rocephin. Corresponding leukocytosis also is consistent with urinary tract infection. Mild decreasing kidney function from baseline. There is also transaminitis and a right upper quadrant ultrasound was performed which showed chronic gallbladder wall thickening however no other signs of cholecystitis. There was incidental right-sided hydronephrosis noted however and his CT renal stone was ordered. Discussed with Dr. Gonzalez's PA who accepted the admission without further request. Admission order placed, bed request submitted. Will await the results of the CT renal stone. - Lab Data Result diagrams: 07/23/17 15:08 07/23/17 15:08 Lab Results 07/23/17 07/23/17 07/23/17 Range/Units 15:08 15:08 15:08 WBC 16.2 H (3.8-10.6) k/uL RBC 3.71 L (3.80-5.40) m/uL Hgb 10.6 L (11.4-16.0) gm/dL Hct 34.7 (34.0-46.0) % MCV 93.5 (80.0-100.0) fL MCH 28.6 (25.0-35.0) pg MCHC 30.6 L (31.0-37.0) g/dL RDW 16.0 H (11.5-15.5) % Plt Count 577 H D (150-450) k/uL Neutrophils % 89 % Lymphocytes % 6 % Monocytes % 3 % Eosinophils % 0 % Basophils % 0 % Neutrophils # 14.5 H (1.3-7.7) k/uL Lymphocytes # 1.0 (1.0-4.8) k/uL Monocytes # 0.4 (0-1.0) k/uL Eosinophils # 0.1 (0-0.7) k/uL Basophils # 0.0 (0-0.2) k/uL Hypochromasia Slight PT (9.0-12.0) sec INR (<1.2) APTT (22.0-30.0) sec Sodium 134 L (137-145) mmol/L Potassium 4.9 (3.5-5.1) mmol/L Chloride 93 L (98-107) mmol/L Carbon Dioxide 31 H (22-30) mmol/L Anion Gap 10 mmol/L BUN 46 H (7-17) mg/dL Creatinine 1.10 H (0.52-1.04) mg/dL Est GFR (MDRD) Af Amer 58 (>60 ml/min/1.73 sqM) Est GFR (MDRD) Non-Af 48 (>60 ml/min/1.73 sqM) Glucose 119 H (74-99) mg/dL Plasma Lactic Acid Phu 1.3 (0.7-2.0) mmol/L Calcium 9.4 (8.4-10.2) mg/dL Total Bilirubin 0.3 (0.2-1.3) mg/dL AST 158 H (14-36) U/L ALT 130 H (9-52) U/L Alkaline Phosphatase 144 H (38-126) U/L Troponin I (0.000-0.034) ng/mL NT-Pro-B Natriuret Pep pg/mL Total Protein 6.6 (6.3-8.2) g/dL Albumin 3.0 L (3.5-5.0) g/dL Lipase 163 (23-300) U/L Urine Color Urine Appearance (Clear) Urine pH (5.0-8.0) Ur Specific [place] (1.001-1.035) Urine Protein (Negative) Urine Glucose (UA) (Negative) Urine Ketones (Negative) Urine Blood (Negative) Urine Nitrite (Negative) Urine Bilirubin (Negative) Urine Urobilinogen (<2.0) mg/dL Ur Leukocyte Esterase (Negative) Urine RBC (0-5) /hpf Urine WBC (0-5) /hpf Urine WBC Clumps (None) /hpf Amorphous Sediment (None) /hpf Urine Mucus (None) /hpf Influenza Type A RNA (Not Detectd) Influenza Type B (PCR) (Not Detectd) 07/23/17 07/23/17 07/23/17 Range/Units 15:08 15:08 15:08 WBC (3.8-10.6) k/uL RBC (3.80-5.40) m/uL Hgb (11.4-16.0) gm/dL Hct (34.0-46.0) % MCV (80.0-100.0) fL MCH (25.0-35.0) pg MCHC (31.0-37.0) g/dL RDW (11.5-15.5) % Plt Count (150-450) k/uL Neutrophils % % Lymphocytes % % Monocytes % % Eosinophils % % Basophils % % Neutrophils # (1.3-7.7) k/uL Lymphocytes # (1.0-4.8) k/uL Monocytes # (0-1.0) k/uL Eosinophils # (0-0.7) k/uL Basophils # (0-0.2) k/uL Hypochromasia PT 10.1 (9.0-12.0) sec INR 1.0 (<1.2) APTT 24.0 (22.0-30.0) sec Sodium (137-145) mmol/L Potassium (3.5-5.1) mmol/L Chloride (98-107) mmol/L Carbon Dioxide (22-30) mmol/L Anion Gap mmol/L BUN (7-17) mg/dL Creatinine (0.52-1.04) mg/dL Est GFR (MDRD) Af Amer (>60 ml/min/1.73 sqM) Est GFR (MDRD) Non-Af (>60 ml/min/1.73 sqM) Glucose (74-99) mg/dL Plasma Lactic Acid Phu (0.7-2.0) mmol/L Calcium (8.4-10.2) mg/dL Total Bilirubin (0.2-1.3) mg/dL AST (14-36) U/L ALT (9-52) U/L Alkaline Phosphatase (38-126) U/L Troponin I 0.013 (0.000-0.034) ng/mL NT-Pro-B Natriuret Pep 1760 pg/mL Total Protein (6.3-8.2) g/dL Albumin (3.5-5.0) g/dL Lipase (23-300) U/L Urine Color Urine Appearance (Clear) Urine pH (5.0-8.0) Ur Specific [place] (1.001-1.035) Urine Protein (Negative) Urine Glucose (UA) (Negative) Urine Ketones (Negative) Urine Blood (Negative) Urine Nitrite (Negative) Urine Bilirubin (Negative) Urine Urobilinogen (<2.0) mg/dL Ur Leukocyte Esterase (Negative) Urine RBC (0-5) /hpf Urine WBC (0-5) /hpf Urine WBC Clumps (None) /hpf Amorphous Sediment (None) /hpf Urine Mucus (None) /hpf Influenza Type A RNA (Not Detectd) Influenza Type B (PCR) (Not Detectd) 07/23/17 07/23/17 Range/Units 15:12 15:26 WBC (3.8-10.6) k/uL RBC (3.80-5.40) m/uL Hgb (11.4-16.0) gm/dL Hct (34.0-46.0) % MCV (80.0-100.0) fL MCH (25.0-35.0) pg MCHC (31.0-37.0) g/dL RDW (11.5-15.5) % Plt Count (150-450) k/uL Neutrophils % % Lymphocytes % % Monocytes % % Eosinophils % % Basophils % % Neutrophils # (1.3-7.7) k/uL Lymphocytes # (1.0-4.8) k/uL Monocytes # (0-1.0) k/uL Eosinophils # (0-0.7) k/uL Basophils # (0-0.2) k/uL Hypochromasia PT (9.0-12.0) sec INR (<1.2) APTT (22.0-30.0) sec Sodium (137-145) mmol/L Potassium (3.5-5.1) mmol/L Chloride (98-107) mmol/L Carbon Dioxide (22-30) mmol/L Anion Gap mmol/L BUN (7-17) mg/dL Creatinine (0.52-1.04) mg/dL Est GFR (MDRD) Af Amer (>60 ml/min/1.73 sqM) Est GFR (MDRD) Non-Af (>60 ml/min/1.73 sqM) Glucose (74-99) mg/dL Plasma Lactic Acid Phu (0.7-2.0) mmol/L Calcium (8.4-10.2) mg/dL Total Bilirubin (0.2-1.3) mg/dL AST (14-36) U/L ALT (9-52) U/L Alkaline Phosphatase (38-126) U/L Troponin I (0.000-0.034) ng/mL NT-Pro-B Natriuret Pep pg/mL Total Protein (6.3-8.2) g/dL Albumin (3.5-5.0) g/dL Lipase (23-300) U/L Urine Color Yellow Urine Appearance Cloudy H (Clear) Urine pH 5.5 (5.0-8.0) Ur Specific [place] 1.016 (1.001-1.035) Urine Protein 2+ H (Negative) Urine Glucose (UA) Negative (Negative) Urine Ketones Negative (Negative) Urine Blood Moderate H (Negative) Urine Nitrite Negative (Negative) Urine Bilirubin Negative (Negative) Urine Urobilinogen <2.0 (<2.0) mg/dL Ur Leukocyte Esterase Moderate H (Negative) Urine RBC 9 H (0-5) /hpf Urine WBC 39 H (0-5) /hpf Urine WBC Clumps Rare H (None) /hpf Amorphous Sediment Few H (None) /hpf Urine Mucus Rare H (None) /hpf Influenza Type A RNA Not Detected (Not Detectd) Influenza Type B (PCR) Not Detected (Not Detectd) - EKG Data EKG Comments: EKG shows normal sinus rhythm with ventricular rate of 94. Disposition Clinical Impression: UTI (urinary tract infection), Transaminitis, Hydronephrosis Disposition: ADMITTED IP TO THIS [facility] Referrals: Alphonso Keen MD [Primary Care Provider] - 1-2 days Decision to Admit Reason: Admit from EC Decision Date: 07/23/17 Decision Time: 18:05
[2017-07-23 15:20] LABS: Basophils % (A) 0 %; Eosinophils # (A) 0.1 k/uL (0-0.7); Eosinophils % (A) 0 %; HCT 34.7 % (34.0-46.0); HGB 10.6 gm/dL (11.4-16.0); Hypochromasia Slight; Lymphocytes % (A) 6 %; MCH 28.6 pg (25.0-35.0); MCHC 30.6 g/dL (31.0-37.0); MCV 93.5 fL (80.0-100.0); Monocytes # (A) 0.4 k/uL (0-1.0); Monocytes % (A) 3 %; Neutrophils # (A) 14.5 k/uL (1.3-7.7); Neutrophils % (A) 89 %; RBC 3.71 m/uL (3.80-5.40); WBC 16.2 k/uL (3.8-10.6)
[2017-07-23 15:22] LABS: Platelet Count 577 k/uL (150-450)
[2017-07-23 15:31] LABS: Calcium 9.4 mg/dL (8.4-10.2); Potassium 4.9 mmol/L (3.5-5.1); Prothrombin Time 10.1 sec (9.0-12.0); Total Bilirubin 0.3 mg/dL (0.2-1.3); Total Protein 6.6 g/dL (6.3-8.2)
[2017-07-23 15:45] LABS: Amorphous Sediment,Urine Few /hpf; Appearance,Urine Cloudy (Clear); Bilirubin,Urine Negative (Negative); Blood,Urine Moderate (Negative); Color,Urine Yellow; Glucose,Urine (UA) Negative (Negative); Ketones,Urine Negative (Negative); Leukocyte Esterase,Urine Moderate (Negative); Mucus,Urine Rare /hpf; Nitrite,Urine Negative (Negative); PH, Urine 5.5 (5.0-8.0); Protein,Urine 2+ (Negative); RBC,Urine 9 /hpf (0-5); Specific Gravity,Urine 1.016 (1.001-1.035); Urobilinogen,Urine <2.0 mg/dL (<2.0); WBC,Urine 39 /hpf (0-5)
--- NOTE | 2017-07-23 15:55 | XR ---
EXAMINATION TYPE: XR chest 2V DATE OF EXAM: 07/23/2017 COMPARISON: Prior chest x-ray 10/07/2016 HISTORY: Elevated white blood cell count, hypertension, rectal carcinoma TECHNIQUE: Frontal and lateral views of the chest are obtained. FINDINGS: There is no focal air space opacity, pleural effusion, or pneumothorax seen. The cardiac silhouette size is within normal limits. There are prominent lung volumes. Bone mineralization is red uced. Patient is rotated. The osseous structures are intact. IMPRESSION: No acute cardiopulmonary process.
--- NOTE | 2017-07-23 17:01 | US ---
EXAMINATION TYPE: US gallbladder DATE OF EXAM: 07/23/2017 COMPARISON: NONE CLINICAL HISTORY: 77-year-old female Pain. Elevated liver enzymes Technique: Multiple sonographic images of the right upper quadrant are obtained. FINDINGS: TESTER REGULATOR NOTES: *Technical limitations due to overlying bowel content Liver Length: 13.2 cm Gallbladder Wall: 0.4 cm CBD: 0.5 cm Right Kidney: 9.2 x 4.4 x 4.4 cm Pancreas: Tail obscured by overlying bowel gas Liver: Small cysts are present, largest on the right measuring = 0.8 x 0.6 x 0.9cm. Homogeneous echo texture of the liver parenchyma. Gallbladder: Borderline to mildly thickened gallbladder wall at 3.6 mm. No abnormal distention, peric holecystic fluid, or shadowing calculi. Evidence for sonographic Arguelles's sign: no CBD: appears wnl Right Kidney: Mild hydronephrosis/pelvicaliectasis. IMPRESSION: 1. Borderline to mild gallbladder wall thickening may reflect chronic cholecystitis but is nonspecifi c and can be seen in fluid overload states as well and can also be reactive to an adjacent inflammato ry process (for example, hepatitis or pancreatitis). 2. There seems to be mild right-sided hydronephrosis. Clinically correlate.
[2017-07-23] MEDS ORDERED: cefTRIAXone IN SWFI 1,000 MG/10 ML SYRINGE IVP STA (17:30)
[2017-07-23] MEDS ORDERED: MORPHINE SULFATE 4 MG/ML SYRINGE IV PRN (18:00)
[2017-07-23] MEDS ORDERED: NALOXONE 0.4 MG/ML 1 ML VIAL IV PRN (18:00)
[2017-07-23] MEDS ORDERED: KETOROLAC 30 MG/ML 1 ML VIAL IVP PRN (18:00)
[2017-07-23] MEDS ORDERED: ONDANSETRON 4 MG/2 ML VIAL IVP PRN (18:00)
[2017-07-23] MEDS ORDERED: CARBAMIDE PEROXIDE 6.5% DROPS 15 ML BTL RIGHT EAR PRN (18:03)
[2017-07-23] MEDS ORDERED: CRANBERRY 425 MG PO SCH (21:00)
[2017-07-23] MEDS: CALCIUM POLYCARBOPHIL 625 MG TAB PO SCH (22:13)
[2017-07-23] MEDS: MIRTAZAPINE 15 MG TAB PO SCH (22:13)
[2017-07-23 22:23] VITALS: BMI 23.3
--- NOTE | 2017-07-24 03:40 | HP ---
HISTORY AND PHYSICAL DATE OF ADMISSION: 07/23/2017 CHIEF COMPLAINTS: Abnormal labs and change in mental status. HISTORY OF PRESENT ILLNESS: This 77-year-old woman with a past medical history of multiple medical problems being followed by Dr. Alphonso Keen in the outpatient setting. Patient recently apparently was discharged from the hospital. The patient had in the past medical history of dementia, hypertension, hyperlipidemia, memory impairment, pulmonary embolism. The patient was found to be confused and patient had features of UTI. Patient also had multiple abnormal outpatient labs, also. There is no history of any fever, rigors. The patient was living in an [facility] home. The patient is unable to provide coherent history. Most of the history taken my discussion with staff and review of chart. PAST MEDICAL HISTORY: Dementia, hypertension, hyperlipidemia, memory impairment, syncope, anxiety and depression. MEDICATIONS: Prior to admission include home medications are: 1. Remeron 30 mg q.h.s. 2. Synthroid 25 mcg. 3. Vitamin D2 50,000 units on Friday. 4. Cranberry 425 mg p.o. b.i.d. 5. Debrox 5 drops right ear q.h.s. 6. FiberCon 60 mg p.o. b.i.d. 7. Xanax 0.5 daily. ALLERGIES: None. FAMILY HISTORY: History of cancer in the family. SOCIAL HISTORY: History of smoking on a regular basis. REVIEW OF SYSTEMS: Review of systems and other systems could not be taken because of the change in mental status. PHYSICAL EXAM: Patient is conscious, confused. Pulse is 94, blood pressure 120/60, respiration 18, temperature 99.2, pulse ox 98% on room air. HEENT is conjunctivae normal. Oral mucosa is dry. Neck is no jugular venous distention. No carotid bruit. No lymph node enlargement. Cardiovascular S1, S2. No S3, no S4. RESPIRATORY: Breath sounds diminished in the bases. A few scattered rhonchi and crackles. ABDOMEN: Soft, nontender. No mass palpable. No hepatosplenomegaly. Legs no edema. No swelling. Nervous system: Higher functions as mentioned earlier. Moves all four extremities. Mild diffuse weakness. Lymphatics: No lymph nodes palpable in the neck, axillae or groin. Skin no ulcers, rashes or bleeding. LAB STUDIES: WBC 16.2, hemoglobin 10.6, sodium 134, creatinine is 1.10. LFTs elevated. UA shows possibly urinary tract infection. Influenza is negative. The chest x-ray was done which showed no acute cardiopulmonary process and a gallbladder ultrasound was also done which showed some mild gallbladder abnormalities. Mild right sided hydronephrosis. ASSESSMENT: 1. Change in mental status with urinary tract infection, sepsis. 2. Rule out chronic cholecystitis. 3. History of dementia. 4. Hypertension. 5. Hyperlipidemia. 6. History pneumonia. 7. History of pulmonary embolus. 8. History of tonsillectomy. 9. History of anxiety, depression. 10.History of nicotine dependence. RECOMMENDATIONS AND DISCUSSION: In this 77-year-old woman who presented with multiple complex medical issues, we will monitor the patient closely. We will initiate broad-spectrum IV antibiotics. Follow the cultures. I would also recommend a surgical evaluation. Otherwise follow the cultures. Repeat labs. Otherwise, DVT prophylaxis. Proton pump inhibitors. We will resume the home medications. The prognosis guarded because of multiple complex medical issues. Further recommendations to follow. Discussed with the patient and discussed with staff. See orders for details. CT scan is pending at this time. MMODL / IJN: [id number] /
[2017-07-24] MEDS: LEVOTHYROXINE 25 MCG TAB PO SCH (06:22)
[2017-07-24 09:04] LABS: ALT 136 U/L (9-52); AST 148 U/L (14-36); Albumin 2.8 g/dL (3.5-5.0); Alkaline Phosphatase 140 U/L (38-126); Anion Gap 10 mmol/L; Blood Urea Nitrogen 38 mg/dL (7-17); Calcium 8.9 mg/dL (8.4-10.2); Carbon Dioxide 27 mmol/L (22-30); Chloride 99 mmol/L (98-107); Glucose 103 mg/dL (74-99); Potassium 4.6 mmol/L (3.5-5.1); Sodium 136 mmol/L (137-145); Total Bilirubin 0.3 mg/dL (0.2-1.3); Total Protein 6.1 g/dL (6.3-8.2)
[2017-07-24 09:05] LABS: Basophils % (A) 0 %; Eosinophils # (A) 0.1 k/uL (0-0.7); Eosinophils % (A) 0 %; HCT 30.4 % (34.0-46.0); Hypochromasia Moderate; Lymphocytes # (A) 0.9 k/uL (1.0-4.8); Lymphocytes % (A) 6 %; MCH 28.1 pg (25.0-35.0); MCHC 29.7 g/dL (31.0-37.0); MCV 94.3 fL (80.0-100.0); Mean Platelet Volume 6.9; Monocytes # (A) 0.4 k/uL (0-1.0); Monocytes % (A) 3 %; Neutrophils # (A) 13.9 k/uL (1.3-7.7); Neutrophils % (A) 89 %; Platelet Count 539 k/uL (150-450); RBC 3.22 m/uL (3.80-5.40); WBC 15.5 k/uL (3.8-10.6)
[2017-07-24] MEDS: CALCIUM POLYCARBOPHIL 625 MG TAB PO SCH ×2 (10:06→19:59)
[2017-07-24] MEDS: HEPARIN SODIUM,PORCINE 5,000 UNIT/ML 1 ML VIAL SQ SCH ×2 (10:06→19:59)
[2017-07-24] MEDS: ALPRAZolam 0.25 MG TAB PO SCH (10:06)
[2017-07-24] MEDS: PANTOPRAZOLE 40 MG TABLET PO SCH (10:06)
[2017-07-24] MEDS ORDERED: MORPHINE SULFATE 4 MG/ML SYRINGE IV PRN (10:40)
[2017-07-24] MEDS ORDERED: traMADol 50 MG TAB PO PRN (10:42)
--- NOTE | 2017-07-24 10:58 | P.GSCN ---
History of Present Illness Consult date: 07/24/17 History of present illness: 77-year-old female being seen at the request of the attending for a surgical eval for abdominal pain. Patient's initial presentation via the EMS system to the emergency room after care providers noted the patient had decreased oral intake decreased appetite. Follow-up labs were drawn at the assisted living facility there were noted to have an elevated white count of 16.2 with elevated liver enzymes. AST 158, ALT 130. Total bilirubin 0.3. Alkaline phosphatase 144 Patient was advised to come to the emergency room for further treatment. Currently this morning the patient's resting comfortably in bed states had a bowel movement has had no further abdominal pain. Patient is a poor historian. Has poor past medical history recall. Health history has been obtained from interviewing nursing and reviewing prior records. white count this morning is 15.5 patient is afebrile Ultrasound done in the emergency room in summary did report indicated mild gallbladder wall thickening may reflect chronic cholecystitis. Kidneys on the right mild hydronephrosis. Common bile duct within normal limits. AST Past medical history hypothyroid, hypertension, dementia, memory impairment, anxiety depressive disorder history of rectal cancer underwent chemo and radiation treatment past surgical history September 2016 colonoscopy large rectal ulcer with anal scarring no other significant past surgical history Review of Systems Difficult to obtain poor history recall Past Medical History Past Medical History: Cancer, Dementia, Hyperlipidemia, Hypertension, Memory Impairment, Pneumonia, Pulmonary Embolus (PE), Syncope Additional Past Medical History / Comment(s): CANCER- CHEMO/RADIATION OF THE ANAL canal 2013, murmur, arthritis, anemia,UTI,weakness using walker History of Any Multi-Drug Resistant Organisms: None Reported Past Surgical History: Tonsillectomy Additional Past Surgical History / Comment(s): bilat lasik sx. colonoscopy Past Anesthesia/Blood Transfusion Reactions: No Reported Reaction Additional Past Anesthesia/Blood Transfusion Reaction / Comm: Andreina Caregiver at [facility] stated "not aware of any anesthesia problems for pt and unknown family hx" Past Psychological History: Anxiety, Depression Smoking Status: Current some day smoker Past Alcohol Use History: None Reported Past Drug Use History: None Reported - Past Family History Father Family Medical History: Cancer Mother Family Medical History: Cancer Brother(s) Family Medical History: Cancer Sister(s) Family Medical History: Cancer Medications and Allergies Home Medications Medication Instructions Recorded Confirmed Type Mirtazapine 30 mg PO HS #30 tablet 05/10/16 07/23/17 Rx ALPRAZolam [Xanax] 0.25 mg PO DAILY 10/07/16 07/23/17 History Levothyroxine Sodium [Synthroid] 25 mcg PO DAILY 10/25/16 07/23/17 History Calcium Polycarbophil [Fibercon] 625 mg PO BID 07/06/17 07/23/17 History Carbamide Peroxide [Debrox Otic] 5 drops RIGHT EAR HS PRN 07/06/17 07/23/17 History Cranberry 425mg Cap 425 mg PO BID 07/06/17 07/23/17 History Ergocalciferol (Vitamin D2) 50,000 unit PO BERGER 07/06/17 07/23/17 History [Vitamin D2] Allergies Allergy/AdvReac Type Severity Reaction Status Date / Time No Known Allergies Allergy Verified 07/23/17 15:03 Surgical - Exam Vital Signs Temp Pulse Resp BP Pulse Ox 97.8 F 101 H 16 123/70 97 07/23/17 14:52 07/23/17 14:52 07/23/17 14:52 07/23/17 14:52 07/23/17 14:52 GENERAL APPEARANCE: 77-year-old female patient is alert, oriented to self and place, in no acute distress. VITAL SIGNS: Reviewed HEENT: Head is normocephalic and atraumatic. Pupils are equal and reactive. The nares are patent. Oropharynx is clear without lesions. NECK: Supple without lymphadenopathy. Traches midline. HEART: S1, S2. Regular rate and rhythm. No murmur noted LUNGS: No crackles or wheezes are heard. Good air movement bilaterally ABDOMEN: Soft, nontender, nondistended with good bowel sounds. No peritoneal signs. No palpable organomegaly or masses. No facial grimacing with palpitation to the abdominal wall EXTREMITIES: Normal skin color and turgor. No cyanosis, rash, ulceration, clubbing or edema. Radial pedal pulses are 2/4 bilaterally. NEUROLOGICAL: No focal deficits. Strength and sensation are grossly intact. Results - Labs 07/24/17 08:18 07/24/17 08:18 Abnormal Lab Results - Last 24 Hours (Table) 07/23/17 07/23/17 07/23/17 Range/Units 15:08 15:08 15:12 WBC 16.2 H (3.8-10.6) k/uL RBC 3.71 L (3.80-5.40) m/uL Hgb 10.6 L (11.4-16.0) gm/dL Hct (34.0-46.0) % MCHC 30.6 L (31.0-37.0) g/dL RDW 16.0 H (11.5-15.5) % Plt Count 577 H D (150-450) k/uL Neutrophils # 14.5 H (1.3-7.7) k/uL Lymphocytes # (1.0-4.8) k/uL Sodium 134 L (137-145) mmol/L Chloride 93 L (98-107) mmol/L Carbon Dioxide 31 H (22-30) mmol/L BUN 46 H (7-17) mg/dL Creatinine 1.10 H (0.52-1.04) mg/dL Glucose 119 H (74-99) mg/dL AST 158 H (14-36) U/L ALT 130 H (9-52) U/L Alkaline Phosphatase 144 H (38-126) U/L Total Protein (6.3-8.2) g/dL Albumin 3.0 L (3.5-5.0) g/dL Urine Appearance Cloudy H (Clear) Urine Protein 2+ H (Negative) Urine Blood Moderate H (Negative) Ur Leukocyte Esterase Moderate H (Negative) Urine RBC 9 H (0-5) /hpf Urine WBC 39 H (0-5) /hpf Urine WBC Clumps Rare H (None) /hpf Amorphous Sediment Few H (None) /hpf Urine Mucus Rare H (None) /hpf 18 07/24/17 Range/Units 08:18 08:18 WBC 15.5 H (3.8-10.6) k/uL RBC 3.22 L (3.80-5.40) m/uL Hgb 9.0 L D (11.4-16.0) gm/dL Hct 30.4 L (34.0-46.0) % MCHC 29.7 L (31.0-37.0) g/dL RDW 16.0 H (11.5-15.5) % Plt Count 539 H (150-450) k/uL Neutrophils # 13.9 H (1.3-7.7) k/uL Lymphocytes # 0.9 L (1.0-4.8) k/uL Sodium 136 L (137-145) mmol/L Chloride (98-107) mmol/L Carbon Dioxide (22-30) mmol/L BUN 38 H (7-17) mg/dL Creatinine (0.52-1.04) mg/dL Glucose 103 H (74-99) mg/dL AST 148 H (14-36) U/L ALT 136 H (9-52) U/L Alkaline Phosphatase 140 H (38-126) U/L Total Protein 6.1 L (6.3-8.2) g/dL Albumin 2.8 L (3.5-5.0) g/dL Urine Appearance (Clear) Urine Protein (Negative) Urine Blood (Negative) Ur Leukocyte Esterase (Negative) Urine RBC (0-5) /hpf Urine WBC (0-5) /hpf Urine WBC Clumps (None) /hpf Amorphous Sediment (None) /hpf Urine Mucus (None) /hpf Microbiology - Last 24 Hours (Table) 07/23/17 15:12 Urine Culture - Preliminary Urine,Clean Catch Diabetes panel 07/23/17 07/24/17 Range/Units 15:08 08:18 Sodium 134 L 136 L (137-145) mmol/L Potassium 4.9 4.6 (3.5-5.1) mmol/L Chloride 93 L 99 (98-107) mmol/L Carbon Dioxide 31 H 27 (22-30) mmol/L BUN 46 H 38 H (7-17) mg/dL Creatinine 1.10 H 0.85 (0.52-1.04) mg/dL Glucose 119 H 103 H (74-99) mg/dL Calcium 9.4 8.9 (8.4-10.2) mg/dL AST 158 H 148 H (14-36) U/L ALT 130 H 136 H (9-52) U/L Alkaline Phosphatase 144 H 140 H (38-126) U/L Total Protein 6.6 6.1 L (6.3-8.2) g/dL Albumin 3.0 L 2.8 L (3.5-5.0) g/dL Calcium panel 07/23/17 07/24/17 Range/Units 15:08 08:18 Calcium 9.4 8.9 (8.4-10.2) mg/dL Albumin 3.0 L 2.8 L (3.5-5.0) g/dL Pituitary panel 07/23/17 07/24/17 Range/Units 15:08 08:18 Sodium 134 L 136 L (137-145) mmol/L Potassium 4.9 4.6 (3.5-5.1) mmol/L Chloride 93 L 99 (98-107) mmol/L Carbon Dioxide 31 H 27 (22-30) mmol/L BUN 46 H 38 H (7-17) mg/dL Creatinine 1.10 H 0.85 (0.52-1.04) mg/dL Glucose 119 H 103 H (74-99) mg/dL Calcium 9.4 8.9 (8.4-10.2) mg/dL Adrenal panel 07/23/17 07/24/17 Range/Units 15:08 08:18 Sodium 134 L 136 L (137-145) mmol/L Potassium 4.9 4.6 (3.5-5.1) mmol/L Chloride 93 L 99 (98-107) mmol/L Carbon Dioxide 31 H 27 (22-30) mmol/L BUN 46 H 38 H (7-17) mg/dL Creatinine 1.10 H 0.85 (0.52-1.04) mg/dL Glucose 119 H 103 H (74-99) mg/dL Calcium 9.4 8.9 (8.4-10.2) mg/dL Total Bilirubin 0.3 0.3 (0.2-1.3) mg/dL AST 158 H 148 H (14-36) U/L ALT 130 H 136 H (9-52) U/L Alkaline Phosphatase 144 H 140 H (38-126) U/L Total Protein 6.6 6.1 L (6.3-8.2) g/dL Albumin 3.0 L 2.8 L (3.5-5.0) g/dL Assessment and Plan Assessment: Impression Abnormal labs elevated white count with elevated liver enzymes present on admission unclear etiology Dementia cognitive impairment History of rectal cancer received chemoradiation treatment 2013 Ultrasound of the abdomen shows mild gallbladder wall thickening may reflect chronic cholecystitis with common bile duct within normal limits Debilitated History of a recent fall July 14 2017 History of chronic constipation Plan Per Dr. caruso request patient will be scheduled tomorrow for a laparoscopic cholecystectomy Nothing by mouth after midnight Pain control IV fluid for hydration DVT and GI prophylaxis Further surgical recommendations pending will follow with you Surgical consultation note dictated for Dr. caruso The above impression and plan of care have been discussed and directed by signing physician. Aysha Dorsey nurse practitioner acting as scribe for signing physician.
[2017-07-24] MEDS: SODIUM CHLORIDE 0.9% 1,000 ML IV SCH (12:49)
[2017-07-24] MEDS ORDERED: cefTRIAXone IN SWFI 1,000 MG/10 ML SYRINGE IVP SCH (17:00)
[2017-07-24] MEDS: MIRTAZAPINE 15 MG TAB PO SCH (19:58)
--- NOTE | 2017-07-24 22:20 | P.PN ---
Subjective Progress Note Date: 07/24/17 Personal being dictated for Dr. Loomis. Interval history: This a 77-year-old female admitted with change in mental status, acute UTI with sepsis, chronic cholecystitis and multiple other medical issues. Passing flatus, positive bowel movement. Denies abdominal pain. LFTs elevated. Evaluated by surgery and patient is scheduled for lap cholecystectomy tomorrow. T-max 100.1, WBC 15.5. Objective - Vital Signs Vital signs: Vital Signs Temp 100.1 F H 07/24/17 15:00 Pulse 95 07/24/17 15:00 Resp 16 07/24/17 16:00 BP 120/73 07/24/17 15:00 Pulse Ox 97 07/24/17 15:00 Intake & Output 07/23/17 07/24/17 07/24/17 18:59 06:59 18:59 Weight 58.967 kg 58 kg Other: # Voids 2 2 # Bowel Movements 1 2 - Exam PHYSICAL EXAM: VITAL SIGNS: As above GENERAL: Sitting up in bed, no acute distress, pleasantly confused HEENT: Conjunctivae normal. eyes normal. NECK: No JVD. No thyroid enlargement. No LNs CARDIOVASCULAR: S1, S2 muffled. No murmur RESPIRATION: Breath sounds diminished in the bases. No rhonchi or crackles. No bronchial breathing. ABDOMEN: Soft, nontender . No guarding. no masses palpable. No hepatosplenomegaly .Bowel sounds heard. LEGS: No edema. no swelling PSYCHIATRY: Alert and oriented -1, mood and affect normal. NERVOUS SYSTEM: Moves all 4 limbs. Diffuse weakness. Higher functions as mentioned previously Skin: no ulcer no rash Joints: No active swelling. No inflammation. Lymphatic system. No LN neck axilla or groin. - Labs CBC & Chem 7: 07/24/17 08:18 07/24/17 08:18 Labs: Abnormal Lab Results - Last 24 Hours (Table) 07/24/17 07/24/17 Range/Units 08:18 08:18 WBC 15.5 H (3.8-10.6) k/uL RBC 3.22 L (3.80-5.40) m/uL Hgb 9.0 L D (11.4-16.0) gm/dL Hct 30.4 L (34.0-46.0) % MCHC 29.7 L (31.0-37.0) g/dL RDW 16.0 H (11.5-15.5) % Plt Count 539 H (150-450) k/uL Neutrophils # 13.9 H (1.3-7.7) k/uL Lymphocytes # 0.9 L (1.0-4.8) k/uL Sodium 136 L (137-145) mmol/L BUN 38 H (7-17) mg/dL Glucose 103 H (74-99) mg/dL AST 148 H (14-36) U/L ALT 136 H (9-52) U/L Alkaline Phosphatase 140 H (38-126) U/L Total Protein 6.1 L (6.3-8.2) g/dL Albumin 2.8 L (3.5-5.0) g/dL Microbiology - Last 24 Hours (Table) 07/23/17 15:12 Urine Culture - Preliminary Urine,Clean Catch Assessment and Plan Assessment: 1. Change in mental status with acute UTI, sepsis 2. Rule out chronic cholecystitis; abdominal ultrasound reports mild gallbladder wall thickening, possible chronic cholecystitis with common bile duct within normal limits 3. Dementia, cognitive impairment 4. Rectal cancer, received chemoradiation 2013 5. Debilitated with history of recent fall. Plan: Continue on current medication regime ,monitoring and symptomatic treatment. Maintain gentle IV fluid hydration, broad-spectrum IV antibiotics.. GI and DVT prophylaxis in place( PPI and SQ Heparin). Renal CT pending. As mentioned above, surgery advises Lap serenity cystectomy- scheduled for tomorrow. The impression and plan of care has been dictated as directed. : I performed a history and examination of this patient, discussed the same with the dictator. I agree with the dictator's note ,documented as a scribe. Any additional findings or plans will be noted.
--- NOTE | 2017-07-24 22:24 | CT ---
EXAMINATION TYPE: CT renal stones wo con DATE OF EXAM: 07/23/2017 HISTORY: Abnormal labs per patient chart. Patient poor historian Abdominal pain CT DLP: 261.5 mGycm. Automated Exposure Control for Dose Reduction was Utilized. TECHNIQUE: CT scan of the abdomen and pelvis is performed without oral or IV contrast. COMPARISON: 09/20/2016 Findings There is mild reticular interstitial density at the posterior lung bases. Heart size is normal. There is no pericardial effusion. There is no pleural effusion. There is a 1 cm calcification at the splenic hilum. There is vascular calcification. There is no evid ence of a liver mass. There is a 2 mm calcification in the left lobe of the liver. Bile ducts are not dilated. There are small multiple calcified gallstones. There is no evidence of pancreatic mass. There is no adrenal mass. There is mild right-sided hydronephrosis and hydroureter. Kidneys have norm al size. There is no hydronephrosis on the left side. There is no retroperitoneal adenopathy. There a re vascular calcifications in the pelvis. I do not see a definite ureteral calculus. Bladder distends smoothly. There is no ascites. I see no intestinal wall thickening. There are multiple fluid-filled distended small bowel loops. The se measure up to 3.3 cm. Appendix is not definitely seen. There is no sign of appendicitis. There are mild spondylotic changes in the lumbar spine. CONCLUSION: Mild right-sided hydronephrosis and hydroureter is new compared to old exam. No calculus identified. This could relate to a nonopaque stone or recently passed stone. Atherosclerotic vascular disease. Interstitial fibrotic changes at the lung bases. Changes in the small bowel consistent with ileus. This appears new compared to old exam. Multiple small calcified gallstones. No dilated ducts. There is mild hyperplasia of both adrenal glan ds that is stable.
[2017-07-25] MEDS: LEVOTHYROXINE 25 MCG TAB PO SCH (06:26)
[2017-07-25] MEDS: SODIUM CHLORIDE 0.9% 1,000 ML IV SCH ×2 (06:27→17:15)
[2017-07-25] MEDS: PANTOPRAZOLE 40 MG TABLET PO SCH (08:34)
[2017-07-25] MEDS: CALCIUM POLYCARBOPHIL 625 MG TAB PO SCH ×2 (08:35→21:29)
[2017-07-25] MEDS: HEPARIN SODIUM,PORCINE 5,000 UNIT/ML 1 ML VIAL SQ SCH (08:35)
[2017-07-25 08:36] LABS: Anisocytosis Slight; Basophils % (A) 0 %; Eosinophils # (A) 0.1 k/uL (0-0.7); Eosinophils % (A) 0 %; HCT 32.3 % (34.0-46.0); HGB 9.3 gm/dL (11.4-16.0); Hypochromasia Marked; Lymphocytes # (A) 0.7 k/uL (1.0-4.8); Lymphocytes % (A) 5 %; MCH 27.5 pg (25.0-35.0); MCHC 28.6 g/dL (31.0-37.0); Monocytes # (A) 0.4 k/uL (0-1.0); Monocytes % (A) 3 %; Neutrophils # (A) 12.6 k/uL (1.3-7.7); Neutrophils % (A) 90 %; Platelet Count 534 k/uL (150-450); RBC 3.37 m/uL (3.80-5.40); RDW 16.1 % (11.5-15.5)
[2017-07-25 08:48] LABS: ALT 147 U/L (9-52); AST 164 U/L (14-36); Albumin 2.7 g/dL (3.5-5.0); Alkaline Phosphatase 141 U/L (38-126); Anion Gap 11 mmol/L; Blood Urea Nitrogen 26 mg/dL (7-17); Calcium 8.5 mg/dL (8.4-10.2); Carbon Dioxide 24 mmol/L (22-30); Chloride 101 mmol/L (98-107); Glucose 115 mg/dL (74-99); Potassium 4.1 mmol/L (3.5-5.1); Sodium 136 mmol/L (137-145); Total Bilirubin 0.2 mg/dL (0.2-1.3)
[2017-07-25] MEDS: LACTATED RINGERS 1,000 ML IV SCH ×3 (09:14→13:30)
[2017-07-25] MEDS: ALPRAZolam 0.25 MG TAB PO SCH (10:37)
[2017-07-25] MEDS ORDERED: HEPARIN SODIUM,PORCINE 5,000 UNIT/ML 1 ML VIAL SQ ONE (12:42)
[2017-07-25] MEDS ORDERED: ceFAZolin IN SWFI 2 GM/20 ML SYRINGE IVP ONE (12:45)
[2017-07-25] MEDS ORDERED: SUCCINYLCHOLINE CHLORIDE 100 MG/5 ML SYR IV ONE (13:05)
[2017-07-25] MEDS ORDERED: NEOSTIGMINE 1 MG/ML 10 ML VIAL ONE (13:05)
[2017-07-25] MEDS ORDERED: LIDOCAINE 1% INJ 10MG/ML (20 ML MDV) ONE (13:05)
[2017-07-25] MEDS ORDERED: MIDAZOLAM 2 MG/2 ML VIAL ONE (13:05)
[2017-07-25] MEDS ORDERED: fentaNYL (PF) 50 MCG/ML 2 ML AMP ONE (13:05)
[2017-07-25] MEDS ORDERED: GLYCOPYRROLATE 0.2 MG/ML 2 ML VIAL ONE (13:05)
[2017-07-25] MEDS ORDERED: ROCURONIUM BROMIDE 10 MG/ML 10 ML VIAL IV ONE (13:05)
[2017-07-25] MEDS ORDERED: BUPIVACAINE (PF) 0.5% 30 ML VIAL SQ ONE (13:30)
[2017-07-25] MEDS ORDERED: LACTATED RINGERS 1,000 ML IV ONE (13:55)
[2017-07-25] MEDS ORDERED: HYDROcodone/APAP 5-325MG 1 EACH TAB PO PRN (13:55)
[2017-07-25] MEDS ORDERED: HYDROmorphone 0.5 MG/0.5 ML SYRINGE IVP PRN (13:55)
[2017-07-25] MEDS ORDERED: NALOXONE 0.4 MG/ML 1 ML VIAL IV PRN (13:55)
--- NOTE | 2017-07-25 13:55 | P.OP ---
Date of Procedure: 07/25/17 Preoperative Diagnosis: Cholecystitis Postoperative Diagnosis: Cholecystitis Procedure(s) Performed: Laparoscopic cholecystectomy Anesthesia: MARIO Surgeon: Nikolas Gardner Estimated Blood Loss (ml): 5 Pathology: other (Gallbladder) Condition: stable Disposition: PACU Description of Procedure: The patient was placed on the operating table. The patient received a general endotracheal tube anesthesia. The patients abdomen was prepped and draped in the usual sterile fashion. Through an infraumbilical stab incision, the fascia of the anterior abdominal wall was grasped with a pair of Kochers and then the Veress needle was placed in the peritoneal cavity. Position of the Veress needle was confirmed with positive drop test. The abdomen was then insufflated. After adequate insufflation, the 10 mm trocar was placed in the peritoneal cavity. Following this the laparoscope was placed in the peritoneal cavity. The patient was placed in the head-up, right side up position and then a 5 mm trocar was placed in the right lateral and right subcostal position under direct visualization. A 8 mm trocar was placed in the epigastric position. The gallbladder was grasped in the fundus and infundibulum. Traction on the gallbladder was placed in the lateral and the cephalad positions. The triangle of Calot was visualized.. The cystic duct was bluntly dissected until the union of the cystic duct and common bile duct was seen. The cystic duct was then divided and sealed with the Harmonic scissors. A PDS Endoloop was then placed throughout the cystic duct stump. The cystic artery divided and sealed with the Harmonic scissors. The gallbladder was then removed from the liver bed using Harmonic scissors. The gallbladder was then extracted through the epigastric port site. Operative field was checked for any bleeding spots and Harmonic scissors was used to coagulate the liver bed. The abdomen was irrigated. The trocars were removed. The skin was closed using interrupted 3-0 Vicryl suture. Dermabond dressing were applied. The patient tolerated the procedure well.
--- NOTE | 2017-07-25 15:38 | PN ---
PROGRESS NOTE DATE OF SERVICE: 07/25/2017 This 77-year-old woman who was admitted with change in mental status with acute UTI, sepsis, also had features of cholecystitis, possibly acute on chronic. The patient also had complaints of diminished p.o. intake. Laparoscopic cholecystectomy is planned at this time. No chest pain. No palpitation. On exam, pulse 82, blood pressure 107/55, respiration 16, temperature 97.9, pulse ox 100% on 8 L. HEENT: Conjunctivae normal. NECK: No jugular venous distention. CARDIOVASCULAR SYSTEM: S1, S2 muffled. RESPIRATORY SYSTEM: Breath sounds diminished at the bases. No rhonchi. No crackles. ABDOMEN: Soft, non-tender. NERVOUS SYSTEM: No focal deficit. LABS: WBC 14, hemoglobin 9.3. LFTs are noted. ASSESSMENT: 1. Change in mental status, possible acute urinary tract infection with sepsis. 2. Abdominal pain and some diminished oral intake, possibly acute on chronic cholecystitis. Ultrasound of the gallbladder showed gallbladder wall thickening and possible chronic cholecystitis. 3. Dementia, cognitive impairment. 4. Rectal cancer with chemoradiation in 2013. 5. History of debilitation and gait dysfunction. 6. FULL CODE. RECOMMENDATIONS AND DISCUSSION: I recommend to continue current medication, continue with symptomatic treatment. Otherwise at this time I would recommend close followup, broad-spectrum IV antibiotics. Surgery is planning laparoscopic cholecystectomy. Follow the cultures. Further recommendations to follow. MMODL / IJN: [id number] /
[2017-07-25] MEDS ORDERED: LEVOFLOXACIN 500MG-D5W PMX 500 MG in DEXTROSE/WATER 1 100ML.BAG IVPB SCH (16:00)
[2017-07-25] MEDS: MIRTAZAPINE 15 MG TAB PO SCH (21:29)
[2017-07-26] MEDS: SODIUM CHLORIDE 0.9% 1,000 ML IV SCH ×2 (03:07→16:18)
[2017-07-26] MEDS: LEVOTHYROXINE 25 MCG TAB PO SCH (06:35)
[2017-07-26 08:07] LABS: Anisocytosis Slight; Basophils % (A) 0 %; Eosinophils # (A) 0.1 k/uL (0-0.7); Eosinophils % (A) 1 %; HCT 30.7 % (34.0-46.0); HGB 8.8 gm/dL (11.4-16.0); Hypochromasia Marked; Lymphocytes # (A) 0.6 k/uL (1.0-4.8); Lymphocytes % (A) 5 %; MCH 28.2 pg (25.0-35.0); MCHC 28.5 g/dL (31.0-37.0); MCV 98.7 fL (80.0-100.0); Macrocytosis Slight; Mean Platelet Volume 6.9; Monocytes # (A) 0.4 k/uL (0-1.0); Monocytes % (A) 3 %; Neutrophils # (A) 11.7 k/uL (1.3-7.7); Neutrophils % (A) 90 %; Platelet Count 526 k/uL (150-450); RBC 3.11 m/uL (3.80-5.40); WBC 12.9 k/uL (3.8-10.6)
[2017-07-26 08:32] LABS: ALT 123 U/L (9-52); AST 118 U/L (14-36); Albumin 2.6 g/dL (3.5-5.0); Alkaline Phosphatase 134 U/L (38-126); Anion Gap 12 mmol/L; Blood Urea Nitrogen 17 mg/dL (7-17); Calcium 8.8 mg/dL (8.4-10.2); Carbon Dioxide 22 mmol/L (22-30); Chloride 104 mmol/L (98-107); Glucose 92 mg/dL (74-99); Potassium 4.4 mmol/L (3.5-5.1); Sodium 138 mmol/L (137-145); Total Bilirubin 0.5 mg/dL (0.2-1.3); Total Protein 5.8 g/dL (6.3-8.2)
[2017-07-26] MEDS: ALPRAZolam 0.25 MG TAB PO SCH (11:11)
[2017-07-26] MEDS: ENOXAPARIN 40 MG/0.4 ML SYRINGE SQ SCH (11:13)
[2017-07-26] MEDS: PANTOPRAZOLE 40 MG TABLET PO SCH (11:13)
[2017-07-26] MEDS: CALCIUM POLYCARBOPHIL 625 MG TAB PO SCH ×2 (11:13→20:36)
--- NOTE | 2017-07-26 12:30 | P.PN ---
Subjective Progress Note Date: 07/26/17 Principal diagnosis: Chronic cholecystitis Patient doing well today. Denies pain. Some loose stools. Tolerating diet. Labs improving. Objective - Vital Signs Vital signs: Vital Signs Temp 97.9 F 07/26/17 06:45 Pulse 102 H 07/26/17 06:45 Resp 20 07/26/17 06:45 BP 144/68 07/26/17 06:45 Pulse Ox 93 L 07/26/17 10:07 Intake & Output 07/25/17 07/26/17 07/26/17 18:59 06:59 18:59 Intake Total 850 500 Output Total 5 Balance 845 500 Intake: IV 850 Oral 500 Output: Estimated Blood Loss 5 Other: # Voids 3 2 # Bowel Movements 2 - Exam Abdomen: Soft, nondistended, incisions clean and dry - Labs CBC & Chem 7: 07/26/17 07:38 07/26/17 07:38 Labs: Abnormal Lab Results - Last 24 Hours (Table) 07/26/17 07/26/17 Range/Units 07:38 07:38 WBC 12.9 H (3.8-10.6) k/uL RBC 3.11 L (3.80-5.40) m/uL Hgb 8.8 L (11.4-16.0) gm/dL Hct 30.7 L (34.0-46.0) % MCHC 28.5 L (31.0-37.0) g/dL RDW 16.0 H (11.5-15.5) % Plt Count 526 H (150-450) k/uL Neutrophils # 11.7 H (1.3-7.7) k/uL Lymphocytes # 0.6 L (1.0-4.8) k/uL AST 118 H (14-36) U/L ALT 123 H (9-52) U/L Alkaline Phosphatase 134 H (38-126) U/L Total Protein 5.8 L (6.3-8.2) g/dL Albumin 2.6 L (3.5-5.0) g/dL Microbiology - Last 24 Hours (Table) 07/23/17 15:08 Blood Culture - Preliminary Blood No Growth after 48 hours Assessment and Plan (1) Chronic cholecystitis Narrative/Plan: Patient doing well at this time. Continue advancing diet as tolerated. Home per medicine. Current Visit: Yes Status: Acute Code(s): K81.1 - CHRONIC CHOLECYSTITIS SNOMED Code(s): 79816264
[2017-07-26] MEDS: LEVOFLOXACIN 500 MG TAB PO SCH (16:48)
[2017-07-26] MEDS: MIRTAZAPINE 15 MG TAB PO SCH (20:36)
--- NOTE | 2017-07-26 20:46 | PN ---
PROGRESS NOTE DATE OF SERVICE: 07/26/2017. INTERVAL HISTORY: This 77-year-old woman who was admitted with change in mental status also had features of UTI with sepsis. The patient also underwent laparoscopic cholecystectomy for possible chronic cholecystitis. No chest pain. No palpitations. No fever. EXAM: Alert and oriented times three. Pulse 92, blood pressure 170/66, respirations 16, temperature 98.4, pulse ox 94% on room air. HEENT: Conjunctivae normal. Neck is no jugular venous distention. Cardiovascular: S1, S2 muffled. Respirations: Breath sounds diminished in the bases. A few scattered rhonchi and no crackles. Abdomen is soft, status post surgery. Legs are no edema. No swelling. Central nervous system: No focal deficits. LABORATORY DATA: WBC 12.9. Otherwise the liver enzymes slightly still elevated. ASSESSMENT: 1. Change in mental status with possible acute urinary tract infection with sepsis. 2. Abdominal pain with acute on chronic cholecystitis, status post laparoscopic cholecystectomy. 3. Dementia, cognitive impairment. 4. Rectal cancer with chemoradiation 2013. 5. History of debilitation, gait dysfunction. 6. FULL CODE. RECOMMENDATIONS AND DISCUSSION: Recommend to continue current medications, continue symptomatic treatment, management and continue with continue with current medications. Continue with empiric antibiotics. Otherwise, closely monitor. Follow closely with surgery. Symptomatic treatment. PT, OT evaluation, possible ECF rehab. Guarded prognosis. Further recommendations to follow. MMODL / IJN: [id number] /
[2017-07-27] MEDS: LEVOTHYROXINE 25 MCG TAB PO SCH (06:38)
[2017-07-27] MEDS: SODIUM CHLORIDE 0.9% 1,000 ML IV SCH ×2 (06:38→16:02)
[2017-07-27] MEDS: ENOXAPARIN 40 MG/0.4 ML SYRINGE SQ SCH (07:52)
[2017-07-27] MEDS: CALCIUM POLYCARBOPHIL 625 MG TAB PO SCH ×2 (07:52→20:26)
[2017-07-27] MEDS: ALPRAZolam 0.25 MG TAB PO SCH (07:52)
[2017-07-27] MEDS: PANTOPRAZOLE 40 MG TABLET PO SCH (07:53)
[2017-07-27 08:42] LABS: ALT 92 U/L (9-52); AST 78 U/L (14-36); Albumin 2.5 g/dL (3.5-5.0); Alkaline Phosphatase 127 U/L (38-126); Anion Gap 9 mmol/L; Blood Urea Nitrogen 13 mg/dL (7-17); Calcium 8.5 mg/dL (8.4-10.2); Carbon Dioxide 26 mmol/L (22-30); Chloride 103 mmol/L (98-107); Glucose 103 mg/dL (74-99); Potassium 3.8 mmol/L (3.5-5.1); Sodium 138 mmol/L (137-145); Total Bilirubin 0.3 mg/dL (0.2-1.3); Total Protein 5.5 g/dL (6.3-8.2)
[2017-07-27 08:55] LABS: Anisocytosis Slight; Basophils # (A) 0.1 k/uL (0-0.2); Basophils % (A) 1 %; Eosinophils # (A) 0.1 k/uL (0-0.7); Eosinophils % (A) 1 %; HGB 8.5 gm/dL (11.4-16.0); Hypochromasia Marked; Lymphocytes # (A) 0.7 k/uL (1.0-4.8); Lymphocytes % (A) 5 %; MCHC 28.4 g/dL (31.0-37.0); MCV 98.6 fL (80.0-100.0); Macrocytosis Slight; Mean Platelet Volume 7.3; Monocytes # (A) 0.4 k/uL (0-1.0); Monocytes % (A) 3 %; Neutrophils # (A) 11.8 k/uL (1.3-7.7); Neutrophils % (A) 90 %; Platelet Count 529 k/uL (150-450); RBC 3.05 m/uL (3.80-5.40); RDW 16.1 % (11.5-15.5); WBC 13.2 k/uL (3.8-10.6)
--- NOTE | 2017-07-27 08:59 | P.PN ---
Subjective Progress Note Date: 07/27/17 Principal diagnosis: Chronic cholecystitis Patient still having diarrhea. C. diff was negative. Tolerating diet. No abdominal pain. Liver enzymes improving. Objective - Vital Signs Vital signs: Vital Signs Temp 97.1 F L 07/27/17 07:00 Pulse 92 07/27/17 07:00 Resp 18 07/27/17 07:00 BP 146/75 07/27/17 07:00 Pulse Ox 94 L 07/27/17 07:00 Intake & Output 07/26/17 07/27/17 07/27/17 18:59 06:59 18:59 Intake Total 120 400 Balance 120 400 Intake: Oral 120 400 Other: # Voids 1 3 # Bowel Movements 1 - Exam Abdomen: Soft, nondistended, incisions clean and dry - Labs CBC & Chem 7: 07/26/17 07:38 07/27/17 08:10 Labs: Abnormal Lab Results - Last 24 Hours (Table) 07/27/17 Range/Units 08:10 Glucose 103 H (74-99) mg/dL AST 78 H (14-36) U/L ALT 92 H (9-52) U/L Alkaline Phosphatase 127 H (38-126) U/L Total Protein 5.5 L (6.3-8.2) g/dL Albumin 2.5 L (3.5-5.0) g/dL Microbiology - Last 24 Hours (Table) 07/23/17 15:08 Blood Culture - Preliminary Blood No Growth after 72 hours Assessment and Plan (1) Chronic cholecystitis Narrative/Plan: Begin Imodium. Continue diet as tolerated. Rehab transfer when bed available. Current Visit: Yes Status: Acute Code(s): K81.1 - CHRONIC CHOLECYSTITIS SNOMED Code(s): 82690877
[2017-07-27] MEDS: LOPERAMIDE 2 MG CAP PO SCH ×4 (09:31→20:31)
[2017-07-27] MEDS ORDERED: ERGOCALCIFEROL 50,000 UNIT CAP PO SCH (12:00)
--- NOTE | 2017-07-27 14:28 | XR ---
EXAMINATION TYPE: XR chest 1V portable DATE OF EXAM: 07/27/2017 COMPARISON: 07/23/2017 HISTORY: Follow-up for pneumonia. Cough. TECHNIQUE: Single frontal view of the chest is obtained. FINDINGS: There is no focal air space opacity, pleural effusion, or pneumothorax seen. Chronic inter stitial lung markings are unchanged from the prior. Again there is mild pulmonary hyperinflation. Dif fuse osseous demineralization is seen. The cardiac silhouette size is within normal limits. The os seous structures are intact. IMPRESSION: No acute cardiopulmonary process. No focal consolidation to suggest pneumonia.
[2017-07-27] MEDS: LEVOFLOXACIN 500 MG TAB PO SCH (16:02)
[2017-07-27 17:02] LABS: Hepatitis A Antibody IgM Non-Reactive (Non-Reactive); Hepatitis B Core IgM Non-Reactive (Non-Reactive)
[2017-07-27] MEDS: MIRTAZAPINE 15 MG TAB PO SCH (20:26)
[2017-07-28] MEDS: SODIUM CHLORIDE 0.9% 1,000 ML IV SCH ×3 (03:01→12:04)
[2017-07-28] MEDS: LEVOTHYROXINE 25 MCG TAB PO SCH (06:25)
[2017-07-28] MEDS: ENOXAPARIN 40 MG/0.4 ML SYRINGE SQ SCH (08:32)
[2017-07-28] MEDS: CALCIUM POLYCARBOPHIL 625 MG TAB PO SCH ×2 (08:32→20:35)
[2017-07-28] MEDS: PANTOPRAZOLE 40 MG TABLET PO SCH (08:32)
[2017-07-28] MEDS: ALPRAZolam 0.25 MG TAB PO SCH (08:32)
--- NOTE | 2017-07-28 08:34 | PN ---
PROGRESS NOTE DATE OF SERVICE: 07/27/2017 This 77-year-old woman was admitted with change in mental status and urinary tract infection with sepsis. She also had a laparoscopic cholecystectomy for chronic cholecystitis and abdominal pain. The patient is being closely monitored. No chest pain. No palpitations. No fever. ECF rehab is planned. Patient is confused. EXAM: Pulse 111, blood pressure 119/64, respiration 18, temperature 97 degrees, pulse ox 98% on room air. HEENT: Conjunctivae normal. Neck:No jugular venous distention. CARDIOVASCULAR: S1, S2 muffled. Respiratory: Breath sounds diminished in the bases. A few scattered rhonchi and crackles. ABDOMEN: Soft. Mild diffuse tenderness, status post surgery. Legs no edema and no swelling. Central nervous system: No focal deficits. LAB STUDIES: WBC 13.1, hemoglobin is 8.5, otherwise AST 78 and ALT is 92, which is improving. ASSESSMENT: 1. Change in mental status with possible acute urinary tract infection with sepsis. 2. Abdominal pain with acute on chronic for cholecystitis status post laparoscopic cholecystectomy. 3. Dementia with cognitive impairment. 4. Rectal cancer with chemoradiation 2013. 5. History of debilitation. 6. Gait dysfunction. 7. FULL CODE. RECOMMENDATIONS AND DISCUSSION: Recommend to continue current medications management and symptomatic treatment. Otherwise, at this time I recommend continue with antibiotics monitor closely. Otherwise closely follow. DVT prophylaxis and empiric antibiotics. Follow with surgery. PT/OT evaluation, possible ECF rehab once the patient is stabilized. Once again, the prognosis is guarded. Cultures are negative so far. MMODL / IJN: [id number] /
[2017-07-28] MEDS: LOPERAMIDE 2 MG CAP PO SCH ×4 (08:36→20:35)
[2017-07-28 09:15] LABS: Anisocytosis Slight; Basophils % (A) 0 %; Eosinophils # (A) 0.1 k/uL (0-0.7); Eosinophils % (A) 1 %; HCT 27.4 % (34.0-46.0); HGB 7.9 gm/dL (11.4-16.0); Hypochromasia Marked; Lymphocytes # (A) 0.8 k/uL (1.0-4.8); Lymphocytes % (A) 7 %; MCH 27.7 pg (25.0-35.0); MCHC 28.8 g/dL (31.0-37.0); MCV 96.3 fL (80.0-100.0); Mean Platelet Volume 7.1; Monocytes # (A) 0.3 k/uL (0-1.0); Monocytes % (A) 3 %; Neutrophils % (A) 88 %; Platelet Count 507 k/uL (150-450); RBC 2.84 m/uL (3.80-5.40); RDW 16.3 % (11.5-15.5); WBC 11.4 k/uL (3.8-10.6)
[2017-07-28 09:29] LABS: ALT 76 U/L (9-52); AST 62 U/L (14-36); Albumin 2.3 g/dL (3.5-5.0); Alkaline Phosphatase 106 U/L (38-126); Anion Gap 8 mmol/L; Blood Urea Nitrogen 15 mg/dL (7-17); Carbon Dioxide 27 mmol/L (22-30); Chloride 104 mmol/L (98-107); Glucose 108 mg/dL (74-99); Potassium 3.6 mmol/L (3.5-5.1); Sodium 139 mmol/L (137-145); Total Bilirubin 0.1 mg/dL (0.2-1.3); Total Protein 5.1 g/dL (6.3-8.2)
--- NOTE | 2017-07-28 11:05 | P.PN ---
Subjective Progress Note Date: 07/28/17 77-year-old female seen and examined. Currently sitting up in bed. Patient is postop 25 of July laparoscopic cholecystectomy for cholecystitis C. diff negative hemoglobin this morning 7.9 continues to have loose stools Objective - Vital Signs Vital signs: Vital Signs Temp 98.4 F 07/28/17 06:32 Pulse 98 07/28/17 06:32 Resp 20 07/28/17 06:32 BP 129/65 07/28/17 06:32 Pulse Ox 94 L 07/28/17 06:32 Intake & Output 07/27/17 07/28/17 07/28/17 18:59 06:59 18:59 Intake Total 240 650 240 Balance 240 650 240 Intake: Oral 240 650 240 Other: # Voids 2 2 # Bowel Movements 1 1 - Exam Exam Abdomen soft surgical incision sites dry surgical tenderness appropriate nondistended has had one documented loose stool reports no nausea, - Labs CBC & Chem 7: 07/28/17 08:50 07/28/17 08:50 Labs: Abnormal Lab Results - Last 24 Hours (Table) 07/28/17 07/28/17 Range/Units 08:50 08:50 WBC 11.4 H (3.8-10.6) k/uL RBC 2.84 L (3.80-5.40) m/uL Hgb 7.9 L (11.4-16.0) gm/dL Hct 27.4 L (34.0-46.0) % MCHC 28.8 L (31.0-37.0) g/dL RDW 16.3 H (11.5-15.5) % Plt Count 507 H (150-450) k/uL Neutrophils # 10.0 H (1.3-7.7) k/uL Lymphocytes # 0.8 L (1.0-4.8) k/uL Glucose 108 H (74-99) mg/dL Calcium 8.0 L (8.4-10.2) mg/dL Total Bilirubin 0.1 L (0.2-1.3) mg/dL AST 62 H (14-36) U/L ALT 76 H (9-52) U/L Total Protein 5.1 L (6.3-8.2) g/dL Albumin 2.3 L (3.5-5.0) g/dL Microbiology - Last 24 Hours (Table) 07/23/17 15:08 Blood Culture - Preliminary Blood No Growth after 96 hours Assessment and Plan Assessment: Impression Abnormal labs elevated white count with elevated liver enzymes present on admission unclear etiology Dementia cognitive impairment History of rectal cancer received chemoradiation treatment 2013 Ultrasound of the abdomen shows mild gallbladder wall thickening may reflect chronic cholecystitis with common bile duct within normal limits Debilitated History of a recent fall July 14 2017 History of chronic constipation Chronic cholecystitis Loose stool diarrhea C. diff negative Postop 25 of July laparoscopic cholecystectomy for cholecystitis Anemia likely due to chronic illness Plan Continue postop surgical care From a surgical perspective patient is felt to be clinically stable to be discharged defer to the timing of the discharge to the attending Pain control DVT and GI prophylaxis Further surgical recommendations pending will follow with you Surgical consultation note dictated for Dr. caruso The above impression and plan of care have been discussed and directed by signing physician. Aysha Dorsey nurse practitioner acting as scribe for signing physician.
[2017-07-28] MEDS ORDERED: FUROSEMIDE 10 MG/ML 2 ML VIAL IV ONE (12:15)
--- NOTE | 2017-07-28 13:01 | P.DS ---
Providers Date of admission: 07/23/17 18:02 Expected date of discharge: 07/28/17 Attending physician: Alem Loomis Consults: 07/24/17 00:20 Consult Physician Routine Consulting Provider: Nikolas Gardner Consult Reason/Comments: cholecystitis?? Do you want consulting provider notified?: Yes Primary care physician: Alphonso Keen Hospital Course: Final Diagnoses: 1. Change in mental status, possible acute UTI with sepsis 2. acute on chronic abdominal pain, cholecystitis, status post laparoscopic cholecystectomy 3. Dementia with cognitive impairment 4. Rectal cancer with chemoradiation 2014 5. Medical debilitation, gait dysfunction Hospital course: This is a 77-year-old female admitted with change in mental status, UTI with sepsis, abdominal pain. Evaluated by general surgery, underwent laparoscopic cholecystectomy. Tolerated procedure well. Hemoglobin 7.9, receiving one unit of packed RBCs prior to DC. Significant clinical improvement. Cleared by surgery for discharge. Patient is being discharged to subacute rehab in a stable condition with guarded prognosis. Physical Exam:VSS, alert and oriented 2, no acute distress.CVS: Regular S1 and S2.,LUNGS: Diminished occasional scattered rhonchi and crackles.ABD: Soft, nontender positive bowel sounds.NEURO: No focal deficits. The impression and plan of care has been dictated as directed. : I performed a history and examination of this patient, discussed the same with the dictator. I agree with the dictator's note ,documented as a scribe. Any additional findings or plans will be noted. Time taken: 35 minutes Patient Condition at Discharge: Stable Plan - Discharge Summary New Discharge Prescriptions: New Levofloxacin [Levaquin] 500 mg PO Q24H #5 tab Loperamide [Imodium] 2 mg PO QID #12 cap Pantoprazole [Protonix] 40 mg PO AC-BRKFST tablet. traMADol HCl [Ultram] 50 mg PO QID PRN #20 tab PRN Reason: Breakthrough Pain Continue Mirtazapine 30 mg PO HS #30 tablet Levothyroxine Sodium [Synthroid] 25 mcg PO DAILY Calcium Polycarbophil [Fibercon] 625 mg PO BID Ergocalciferol (Vitamin D2) [Vitamin D2] 50,000 unit PO BERGER Carbamide Peroxide [Debrox Otic] 5 drops RIGHT EAR HS PRN PRN Reason: Ear Wax Cranberry 425mg Cap 425 mg PO BID ALPRAZolam [Xanax] 0.25 mg PO DAILY #5 tab Discharge Medication List Mirtazapine 30 mg PO HS #30 tablet 05/10/16 [Rx] Levothyroxine Sodium [Synthroid] 25 mcg PO DAILY 10/25/16 [History] Calcium Polycarbophil [Fibercon] 625 mg PO BID 07/06/17 [History] Carbamide Peroxide [Debrox Otic] 5 drops RIGHT EAR HS PRN 07/06/17 [History] Cranberry 425mg Cap 425 mg PO BID 07/06/17 [History] Ergocalciferol (Vitamin D2) [Vitamin D2] 50,000 unit PO BERGER 07/06/17 [History] ALPRAZolam [Xanax] 0.25 mg PO DAILY #5 tab 07/28/17 [Rx] Levofloxacin [Levaquin] 500 mg PO Q24H #5 tab 07/28/17 [Rx] Loperamide [Imodium] 2 mg PO QID #12 cap 07/28/17 [Rx] Pantoprazole [Protonix] 40 mg PO AC-BRKFST tablet. 07/28/17 [Rx] traMADol HCl [Ultram] 50 mg PO QID PRN #20 tab 07/28/17 [Rx] Follow up Appointment(s)/Referral(s): Alphonso Keen MD [Primary Care Provider] - 1 Week (After DC from subacute rehab) Asael Miller MD [STAFF PHYSICIAN] - 3 Days (While at subacute rehab) Patient Instructions/Handouts: How to Stop Smoking (DC), Urinary Tract Infection in Women (DC) Activity/Diet/Wound Care/Special Instructions: Linda PARRA Diet: Cardiac, low fat diet Activity: As tolerated CBC, BMP in 3 days
[2017-07-28] MEDS: LEVOFLOXACIN 500 MG TAB PO SCH (16:37)
[2017-07-28] MEDS ORDERED: ACETAMINOPHEN TAB 325 MG TAB PO PRN (23:21)
[2017-07-29 06:32] VITALS: PULSE 86; RESP 20
[2017-07-29] MEDS: LEVOTHYROXINE 25 MCG TAB PO SCH (06:32)
[2017-07-29 07:10] VITALS: BP 120/53
[2017-07-29] MEDS: CALCIUM POLYCARBOPHIL 625 MG TAB PO SCH (07:54)
[2017-07-29] MEDS: ENOXAPARIN 40 MG/0.4 ML SYRINGE SQ SCH (07:54)
[2017-07-29] MEDS: ALPRAZolam 0.25 MG TAB PO SCH (07:54)
[2017-07-29] MEDS: LOPERAMIDE 2 MG CAP PO SCH ×2 (07:54→12:06)
[2017-07-29] MEDS: PANTOPRAZOLE 40 MG TABLET PO SCH (07:54)
[2017-07-29 08:47] LABS: Anisocytosis Slight; Basophils % (A) 0 %; Eosinophils # (A) 0.1 k/uL (0-0.7); Eosinophils % (A) 1 %; HCT 32.5 % (34.0-46.0); Hypochromasia Marked; Lymphocytes # (A) 0.7 k/uL (1.0-4.8); Lymphocytes % (A) 6 %; MCHC 30.1 g/dL (31.0-37.0); MCV 93.2 fL (80.0-100.0); Mean Platelet Volume 6.6; Monocytes # (A) 0.4 k/uL (0-1.0); Monocytes % (A) 3 %; Neutrophils # (A) 10.7 k/uL (1.3-7.7); Neutrophils % (A) 89 %; Platelet Count 460 k/uL (150-450); Poikilocytosis Moderate; RBC 3.48 m/uL (3.80-5.40); RDW 16.4 % (11.5-15.5); WBC 12.1 k/uL (3.8-10.6)
[2017-07-29 08:54] LABS: HGB 9.8 gm/dL (11.4-16.0)
[2017-07-29 11:08] VITALS: TEMP 98.4
[2017-07-29] MEDS: SODIUM CHLORIDE 0.9% 1,000 ML IV SCH (11:20)
--- NOTE | 2017-07-29 18:21 | P.PN ---
Subjective Progress Note Date: 07/28/17 Personal being dictated for Dr. Loomis. Interval history: This a 77-year-old female admitted with change in mental status, acute UTI with sepsis, chronic cholecystitis and multiple other medical issues. Passing flatus, positive bowel movement. Denies abdominal pain. LFTs elevated. Evaluated by surgery and patient is scheduled for lap cholecystectomy tomorrow. T-max 100.1, WBC 15.5. 07/28/17 Hemoglobin 7.9, symptomatic and awaiting one unit of packed RBC transfusion. Tolerating diet with no nausea or vomiting. One loose stool reported. Tested negative for C. difficile colitis. Pain controlled. Objective - Vital Signs Vital signs: Vital Signs Temp 98.9 F 07/28/17 18:47 Pulse 93 07/28/17 18:47 Resp 18 07/28/17 18:47 BP 134/69 07/28/17 18:47 Pulse Ox 99 07/28/17 18:47 Intake & Output 07/28/17 07/28/17 07/29/17 06:59 18:59 06:59 Intake Total 650 240 Balance 650 240 Weight 58 kg Intake: Oral 650 240 Blood Product 0 Rc As-3 Unit 0 [id number] Other: # Voids 2 # Bowel Movements 1 - Exam PHYSICAL EXAM: VITAL SIGNS: As above GENERAL: Sitting up in bed, no acute distress, pleasantly confused HEENT: Conjunctivae normal. eyes normal. NECK: No JVD. No thyroid enlargement. No LNs CARDIOVASCULAR: S1, S2 muffled. No murmur RESPIRATION: Breath sounds diminished in the bases. No rhonchi or crackles. No bronchial breathing. ABDOMEN: Soft, status post surger . No guarding. no masses palpable.Bowel sounds heard. LEGS: No edema. no swelling PSYCHIATRY: Alert and oriented -1, mood and affect normal. NERVOUS SYSTEM: Moves all 4 limbs. Diffuse weakness. Higher functions as mentioned previously Skin: no ulcer no rash Joints: No active swelling. No inflammation. Lymphatic system. No LN neck axilla or groin. - Labs CBC & Chem 7: 07/29/17 08:04 07/28/17 08:50 Labs: Abnormal Lab Results - Last 24 Hours (Table) 07/28/17 07/28/17 07/28/17 Range/Units 08:50 08:50 15:45 WBC 11.4 H (3.8-10.6) k/uL RBC 2.84 L (3.80-5.40) m/uL Hgb 7.9 L (11.4-16.0) gm/dL Hct 27.4 L (34.0-46.0) % MCHC 28.8 L (31.0-37.0) g/dL RDW 16.3 H (11.5-15.5) % Plt Count 507 H (150-450) k/uL Neutrophils # 10.0 H (1.3-7.7) k/uL Lymphocytes # 0.8 L (1.0-4.8) k/uL Glucose 108 H (74-99) mg/dL Calcium 8.0 L (8.4-10.2) mg/dL Total Bilirubin 0.1 L (0.2-1.3) mg/dL AST 62 H (14-36) U/L ALT 76 H (9-52) U/L Total Protein 5.1 L (6.3-8.2) g/dL Albumin 2.3 L (3.5-5.0) g/dL Crossmatch See Detail Microbiology - Last 24 Hours (Table) 07/23/17 15:08 Blood Culture - Preliminary Blood No Growth after 96 hours Assessment and Plan Assessment: 1. Change in mental status with acute UTI, sepsis. 2. Acute on chronic abdominal pain, cholecystitis, status post laparoscopic cholecystectomy 3. Dementia, cognitive impairment 4. Rectal cancer, received chemoradiation 2013 5. Debilitated with history of recent fall. Plan: Continue on current medication regime ,monitoring and symptomatic treatment. Awaiting 1 unit packed RBCs tonight. Discharge planning in progress for subacute rehab tomorrow. The impression and plan of care has been dictated as directed. : I performed a history and examination of this patient, discussed the same with the dictator. I agree with the dictator's note ,documented as a scribe. Any additional findings or plans will be noted.
== END 2017-07-29 12:23 | DRG 854 ==
LOC: EC 14:47 → 4MS4W 18:02
PROVIDERS: ADMIT Internal Medicine; ATTEND Internal Medicine
PROC: 0FT44ZZ Resection of Gallbladder, Percutaneous Endoscopic Approach (ICD-10-PCS; principal; 2017-07-25 13:55)
DX: A41.9 Sepsis, unspecified organism (principal); K81.2 Acute cholecystitis with chronic cholecystitis; N13.30 Unspecified hydronephrosis; N39.0 Urinary tract infection, site not specified; D63.8 Anemia in other chronic diseases classified elsewhere; F03.90 Unspecified dementia, unspecified severity, without behavioral disturbance, psychotic disturbance, mood disturbance, and anxiety; E03.9 Hypothyroidism, unspecified; E78.5 Hyperlipidemia, unspecified; F17.200 Nicotine dependence, unspecified, uncomplicated; F32.9 Major depressive disorder, single episode, unspecified; G89.29 Other chronic pain; F41.9 Anxiety disorder, unspecified; I10 Essential (primary) hypertension; Z80.9 Family history of malignant neoplasm, unspecified; Z85.048 Personal history of other malignant neoplasm of rectum, rectosigmoid junction, and anus; Z86.711 Personal history of pulmonary embolism; Z92.21 Personal history of antineoplastic chemotherapy; Z92.3 Personal history of irradiation; Z79.890 Hormone replacement therapy; Z79.899 Other long term (current) drug therapy
CPT/HCPCS: 36415; 71045; 71046; 74150; 76705; 80053; 80074; 81001; 83605; 83690; 83880; 84484; 85025; 85610; 85730; 86850; 86870; 86880; 86900; 86901; 86902; 86920; 87040; 87086; 87324; 87502; 88304; 93005; 96374; 99285

== ENCOUNTER 2017-08-01 17:30 | Inpatient (IN) | payer MEDICARE, OTHER ==
[2017-08-01] MEDS ORDERED: RX INFO: IV CONTRAST WAS GIVEN 1 EACH MISC MISCELLANE PRN (18:13)
--- NOTE | 2017-08-01 18:15 | ED ---
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 She is unable to contribute to majority of history because of her dementia and memory loss. Patient is a resident at [facility]. She was brought to the emergency department via EMS because staff noticed that there was stool coming out of her vagina. Patient states she believes she is here because she has diarrhea. It was reported the patient was recently treated for a UTI and underwent a cholecystectomy. (Waleska Grayson) - Related Data Home Medications Medication Instructions Recorded Confirmed Levothyroxine Sodium [Synthroid] 25 mcg PO DAILY 10/25/16 08/01/17 Calcium Polycarbophil [Fibercon] 625 mg PO BID 07/06/17 08/01/17 Carbamide Peroxide [Debrox Otic] 5 drops RIGHT EAR HS PRN 07/06/17 08/01/17 Cranberry 425mg Cap 425 mg PO BID 07/06/17 08/01/17 Ergocalciferol (Vitamin D2) 50,000 unit PO BERGER 07/06/17 08/01/17 [Vitamin D2] ALPRAZolam [Xanax] 0.25 mg PO HS@2100 08/01/17 08/01/17 Bisacodyl [Dulcolax] 10 mg RECTAL DAILY PRN 08/01/17 08/01/17 Levofloxacin [Levaquin] 500 mg PO DAILY 08/01/17 08/01/17 Magnesium Hydroxide [Milk of 7,200 mg PO DAILY PRN 08/01/17 08/01/17 Magnesia Concentrate] Menthol/Zinc Oxide [Calmoseptine 1 applic TOPICAL BID 08/01/17 08/01/17 Ointment] Na Phos,M-B/Na Phos,Di-Ba [Fleet 1 dose RECTAL DAILY PRN 08/01/17 08/01/17 Adult] Pantoprazole [Protonix] 40 mg PO DAILY 08/01/17 08/01/17 Potassium Chloride [K-Tab ER] 10 meq PO DAILY 08/01/17 08/01/17 Previous Rx's Medication Instructions Recorded Mirtazapine 30 mg PO HS #30 tablet 05/10/16 Loperamide [Imodium] 2 mg PO QID #12 cap 07/28/17 traMADol HCl [Ultram] 50 mg PO QID PRN #20 tab 07/28/17 Heparin Sodium,Porcine [Heparin 5,000 unit SQ Q12HR #28 vial 07/29/17 Sodium] Allergies Allergy/AdvReac Type Severity Reaction Status Date / Time No Known Allergies Allergy Verified 08/01/17 18:01 Review of Systems ROS Other: All systems not noted in ROS Statement are negative. <Carmelo Garland - Last Filed: 08/01/17 20:37> ROS Other: All systems not noted in ROS Statement are negative. <Waleska Grayson - Last Filed: 08/01/17 20:52> ROS Statement: Those systems with pertinent positive or pertinent negative responses have been documented in the HPI. Past Medical History Past Medical History: Cancer, Dementia, Hyperlipidemia, Hypertension, Memory Impairment, Pneumonia, Pulmonary Embolus (PE), Syncope Additional Past Medical History / Comment(s): CANCER- CHEMO/RADIATION OF THE ANAL canal 2013, murmur, arthritis, anemia,UTI,weakness using walker History of Any Multi-Drug Resistant Organisms: None Reported Past Surgical History: Tonsillectomy Additional Past Surgical History / Comment(s): bilat lasik sx. colonoscopy Past Anesthesia/Blood Transfusion Reactions: No Reported Reaction Additional Past Anesthesia/Blood Transfusion Reaction / Comment(s): Andreina Caregiver at [facility] stated "not aware of any anesthesia problems for pt and unknown family hx" Past Psychological History: Anxiety, Depression Smoking Status: Current some day smoker Past Alcohol Use History: None Reported Past Drug Use History: None Reported - Past Family History Father Family Medical History: Cancer Mother Family Medical History: Cancer Brother(s) Family Medical History: Cancer Sister(s) Family Medical History: Cancer <Waleska Grayson - Last Filed: 08/01/17 20:52> General Exam <Carmelo Garland - Last Filed: 03/02/18 20:37> Limitations: no limitations External exam: Present: swelling (bilateral labia minora ) Speculum exam: Present: other (stool and blood in vaginal canal ) <Waleska Grayson - Last Filed: 08/01/17 20:52> - General Exam Comments Initial Comments: General: Awake and alert, well-developed; in no apparent distress. HEENT: Head atraumatic, normocephalic. Pupils are equal, round and reactive to light. Extraocular movements intact. Neck: Supple. Normal ROM. Cardiovascular: Regular rate and rhythm. No murmurs, rubs or gallops. Chest symmetrical. Respiratory: Lungs clear to auscultation bilaterally. No wheezes, rales or rhonchi. Normal respiratory effort with no use of accessory muscles. Abdomen: Abdomen is distended. There is tenderness on palpation of left lower quadrant. Normal bowel sounds in all 4 quadrants. Four laparoscopic surgical scars are noted and appeared to be well-healing. Musculoskeletal: Normal ROM, no tenderness bilateral upper and lower extremities. Skin: [place], warm and dry without rashes or lesions. Neurological: Alert and oriented x2. CN II-XII grossly intact. (Waleska Grayson) Course <Carmelo Garland - Last Filed: 08/01/17 20:37> <Waleska Grayson - Last Filed: 08/01/17 20:52> Vital Signs 08/01/17 08/01/17 08/01/17 17:37 19:46 20:35 Temperature 98.1 F Pulse Rate 96 103 H Respiratory 18 18 Rate Blood Pressure 106/56 119/56 O2 Sat by Pulse 95 92 L 87 L Oximetry 08/01/17 20:39 Temperature Pulse Rate 93 Respiratory 16 Rate Blood Pressure 109/57 O2 Sat by Pulse 100 Oximetry - Reevaluation(s) Reevaluation #1: 08/01/17 20:37 Patient reevaluated and resting comfortably in bed. Patient does have some mild pelvic tenderness. Chart reviewed. Patient does meet sepsis criteria. Blood culture and lactic acid and IV antibiotics have been ordered. Case was discussed in detail with Dr. Yang, covering for Dr. grimaldo, who admits for Dr. Mckenzie. (Patient has previously seen Dr. Mckenzie recently. ) He will admit with neurology consult. (Carmelo Garland) CBC reveals a white count of 13.3 with a left shift of 11.7. Lactic acid is 1.4 , within normal limits. CT abdomen and pelvis with IV contrast does reveal inflammatory changes within the pelvis. This confirms diagnosis of sepsis. Patient will be started on IV Levaquin. Blood cultures pending. 08/01/17 20:12 (Waleska Grayson) Medical Decision Making - Lab Data Result diagrams: 08/01/17 19:09 08/01/17 19:09 <Carmelo Garland - Last Filed: 08/01/17 20:37> - Lab Data Result diagrams: 08/01/17 19:09 08/01/17 19:09 - Radiology Data Radiology results: report reviewed <Waleska Grayson - Last Filed: 08/01/17 20:52> - Medical Decision Making This is a 77-year-old female who presents to the emergency department for evaluation of possible stool within the vagina. I received a very limited history as patient suffers from dementia and memory loss. On speculum examination, there is large amount of stool and blood noted within the vaginal canal. CT abdomen and pelvis with IV contrast revealed inflammatory changes within the pelvis. 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 CBC revealed a white count of 13.3 with a left shift of 11.7. This confirms a sepsis diagnosis. Patient was started on IV Levaquin. UA revealed large blood, white blood cells, leukocyte esterase and bacteria. This confirms diagnosis of urinary tract infection. CT also revealed a right- sided hydronephrosis that probably relates to obstruction of the distal right ureter due to inflammatory changes. Patient will be admitted to Dr. Yang with consult to urology with diagnoses of UTI, sepsis, hydronephrosis and fistula. Patient's vital signs are stable and she is in no acute distress. While in the emergency department, patient's O2 saturation decreased to 87%. She was placed on 2 L of oxygen and is now at 100%. (Waleska Grayson) - Lab Data Lab Results 08/01/17 08/01/17 08/01/17 Range/Units 19:09 19:09 19:09 WBC 13.3 H (3.8-10.6) k/uL RBC 3.18 L (3.80-5.40) m/uL Hgb 9.0 L (11.4-16.0) gm/dL Hct 29.1 L (34.0-46.0) % MCV 91.3 (80.0-100.0) fL MCH 28.2 (25.0-35.0) pg MCHC 30.9 L (31.0-37.0) g/dL RDW 16.1 H (11.5-15.5) % Plt Count 439 (150-450) k/uL Neutrophils % 89 % Lymphocytes % 7 % Monocytes % 3 % Eosinophils % 1 % Basophils % 0 % Neutrophils # 11.7 H (1.3-7.7) k/uL Lymphocytes # 0.9 L (1.0-4.8) k/uL Monocytes # 0.4 (0-1.0) k/uL Eosinophils # 0.1 (0-0.7) k/uL Basophils # 0.0 (0-0.2) k/uL Hypochromasia Moderate Anisocytosis Slight PT (9.0-12.0) sec INR (<1.2) APTT (22.0-30.0) sec Sodium 135 L (137-145) mmol/L Potassium 3.9 (3.5-5.1) mmol/L Chloride 96 L (98-107) mmol/L Carbon Dioxide 32 H (22-30) mmol/L Anion Gap 7 mmol/L BUN 29 H (7-17) mg/dL Creatinine 1.00 (0.52-1.04) mg/dL Est GFR (MDRD) Af Amer >60 (>60 ml/min/1.73 sqM) Est GFR (MDRD) Non-Af 54 (>60 ml/min/1.73 sqM) Glucose 101 H (74-99) mg/dL Plasma Lactic Acid Phu 1.4 (0.7-2.0) mmol/L Calcium 8.7 (8.4-10.2) mg/dL Total Bilirubin 0.2 (0.2-1.3) mg/dL AST 66 H (14-36) U/L ALT 55 H (9-52) U/L Alkaline Phosphatase 125 (38-126) U/L Total Protein 5.7 L (6.3-8.2) g/dL Albumin 2.5 L (3.5-5.0) g/dL Urine Color Urine Appearance (Clear) Urine pH (5.0-8.0) Ur Specific [place] (1.001-1.035) Urine Protein (Negative) Urine Glucose (UA) (Negative) Urine Ketones (Negative) Urine Blood (Negative) Urine Nitrite (Negative) Urine Bilirubin (Negative) Urine Urobilinogen (<2.0) mg/dL Ur Leukocyte Esterase (Negative) Urine RBC (0-5) /hpf Urine WBC (0-5) /hpf Urine WBC Clumps (None) /hpf Urine Bacteria (None) /hpf Urine Yeast (Budding) (None) /hpf 08/01/17 08/01/17 Range/Units 19:09 19:09 WBC (3.8-10.6) k/uL RBC (3.80-5.40) m/uL Hgb (11.4-16.0) gm/dL Hct (34.0-46.0) % MCV (80.0-100.0) fL MCH (25.0-35.0) pg MCHC (31.0-37.0) g/dL RDW (11.5-15.5) % Plt Count (150-450) k/uL Neutrophils % % Lymphocytes % % Monocytes % % Eosinophils % % Basophils % % Neutrophils # (1.3-7.7) k/uL Lymphocytes # (1.0-4.8) k/uL Monocytes # (0-1.0) k/uL Eosinophils # (0-0.7) k/uL Basophils # (0-0.2) k/uL Hypochromasia Anisocytosis PT 9.9 (9.0-12.0) sec INR 1.0 (<1.2) APTT 28.4 (22.0-30.0) sec Sodium (137-145) mmol/L Potassium (3.5-5.1) mmol/L Chloride (98-107) mmol/L Carbon Dioxide (22-30) mmol/L Anion Gap mmol/L BUN (7-17) mg/dL Creatinine (0.52-1.04) mg/dL Est GFR (MDRD) Af Amer (>60 ml/min/1.73 sqM) Est GFR (MDRD) Non-Af (>60 ml/min/1.73 sqM) Glucose (74-99) mg/dL Plasma Lactic Acid Phu (0.7-2.0) mmol/L Calcium (8.4-10.2) mg/dL Total Bilirubin (0.2-1.3) mg/dL AST (14-36) U/L ALT (9-52) U/L Alkaline Phosphatase (38-126) U/L Total Protein (6.3-8.2) g/dL Albumin (3.5-5.0) g/dL Urine Color Yellow Urine Appearance Turbid H (Clear) Urine pH 6.0 (5.0-8.0) Ur Specific [place] 1.016 (1.001-1.035) Urine Protein 2+ H (Negative) Urine Glucose (UA) Negative (Negative) Urine Ketones Negative (Negative) Urine Blood Moderate H (Negative) Urine Nitrite Negative (Negative) Urine Bilirubin Negative (Negative) Urine Urobilinogen <2.0 (<2.0) mg/dL Ur Leukocyte Esterase Large H (Negative) Urine RBC 21 H (0-5) /hpf Urine WBC >182 H (0-5) /hpf Urine WBC Clumps Many H (None) /hpf Urine Bacteria Many H (None) /hpf Urine Yeast (Budding) Many H (None) /hpf - Radiology Data CT abdomen and pelvis with contrast impression: Inflammatory changes in the pelvis. There is air in the urinary bladder that could relate to a rectal vesicle fistula. Mildly dilated endometrial cavity. Right-sided hydronephrosis probably relates to obstruction of the distal right ureter due to the inflammatory changes. I do not see a definite ureteral calculus. Sigmoid diverticulosis. (Waleska Grayson) Disposition <Carmelo Garland - Last Filed: 08/01/17 20:37> Time of Disposition: 20:44 <Waleska Grayson - Last Filed: 08/01/17 20:52> Clinical Impression: Fistula, Urinary tract infection, Hydronephrosis, Sepsis Disposition: ADMITTED IP TO THIS HOSP Condition: Stable Referrals: Alphonso Keen MD [Primary Care Provider] - 1-2 days
[2017-08-01 19:24] LABS: Anisocytosis Slight; Basophils % (A) 0 %; Eosinophils # (A) 0.1 k/uL (0-0.7); Eosinophils % (A) 1 %; HCT 29.1 % (34.0-46.0); Hypochromasia Moderate; Lymphocytes # (A) 0.9 k/uL (1.0-4.8); Lymphocytes % (A) 7 %; MCH 28.2 pg (25.0-35.0); MCHC 30.9 g/dL (31.0-37.0); MCV 91.3 fL (80.0-100.0); Mean Platelet Volume 7.2; Monocytes # (A) 0.4 k/uL (0-1.0); Monocytes % (A) 3 %; Neutrophils # (A) 11.7 k/uL (1.3-7.7); Neutrophils % (A) 89 %; Platelet Count 439 k/uL (150-450); RBC 3.18 m/uL (3.80-5.40); RDW 16.1 % (11.5-15.5); WBC 13.3 k/uL (3.8-10.6)
[2017-08-01 19:32] LABS: Appearance,Urine Turbid (Clear); Bacteria,Urine Many /hpf; Bilirubin,Urine Negative (Negative); Blood,Urine Moderate (Negative); Budding Yeast,Urine Many /hpf; Color,Urine Yellow; Glucose,Urine (UA) Negative (Negative); Ketones,Urine Negative (Negative); Leukocyte Esterase,Urine Large (Negative); Nitrite,Urine Negative (Negative); Protein,Urine 2+ (Negative); RBC,Urine 21 /hpf (0-5); Specific Gravity,Urine 1.016 (1.001-1.035); Urobilinogen,Urine <2.0 mg/dL (<2.0); WBC,Urine >182 /hpf (0-5)
[2017-08-01 19:33] LABS: ALT 55 U/L (9-52); AST 66 U/L (14-36); Albumin 2.5 g/dL (3.5-5.0); Alkaline Phosphatase 125 U/L (38-126); Anion Gap 7 mmol/L; Blood Urea Nitrogen 29 mg/dL (7-17); Calcium 8.7 mg/dL (8.4-10.2); Carbon Dioxide 32 mmol/L (22-30); Chloride 96 mmol/L (98-107); Glucose 101 mg/dL (74-99); Potassium 3.9 mmol/L (3.5-5.1); Sodium 135 mmol/L (137-145); Total Bilirubin 0.2 mg/dL (0.2-1.3); Total Protein 5.7 g/dL (6.3-8.2)
--- NOTE | 2017-08-01 20:00 | CT ---
EXAMINATION TYPE: CT abdomen pelvis w con DATE OF EXAM: 08/01/2017 COMPARISON: NONE HISTORY: Patient poor historian. Patient passing stool through vagina per chart. CT DLP: 1008 mGycm Automated exposure control for dose reduction was used. TECHNIQUE: Helical acquisition of images was performed from the lung bases through the pelvis. CONTRAST: Performed without Oral Contrast and with IV Contrast, patient injected with 100 mL of Omnipaque 300. FINDINGS: There is pulmonary emphysema at the lung bases. There is some coarsening of interstitial markings at the lung bases. There is a 1 cm calcified granuloma at the splenic hilum. Liver shows no focal defect. Common bile du ct measures 1 cm. There is a 1 cm cyst in the right lobe of the liver. There is cholecystectomy. Ther e is no evidence of pancreatic mass. There are small calcifications in the body of the pancreas. There is mild right-sided hydronephrosis and hydroureter. There is some fat stranding in the floor of the pelvis. There is some air in the urinary bladder. Uterus is anteverted. There is enlargement of the endometrial cavity that measures 1.6 cm. There is no sign of free air. I see no focal bone destru ction. There is no evidence of bowel obstruction. IMPRESSION: INFLAMMATORY CHANGES IN THE PELVIS. THERE IS AIR IN THE URINARY BLADDER THAT COULD RELATE TO A RECTAL VESICLE FISTULA. MILDLY DILATED ENDOMETRIAL CAVITY. RIGHT-SIDED HYDRONEPHROSIS PROBABLY RELATES TO O BSTRUCTION OF THE DISTAL RIGHT URETER DUE TO INFLAMMATORY CHANGES. I DO NOT SEE A DEFINITE URETERAL C ALCULUS. SIGMOID DIVERTICULOSIS. FIBROTIC CHANGES AND SCARRING AT THE LUNG BASES. EMPHYSEMA.
[2017-08-01 20:05] LABS: Partial Thromboplastin Time 28.4 sec (22.0-30.0); Prothrombin Time 9.9 sec (9.0-12.0)
[2017-08-01] MEDS ORDERED: SODIUM CHLORIDE 0.9% 1,000 ML IV STA (20:07)
[2017-08-01] MEDS ORDERED: LEVOFLOXACIN 750MG-D5W PMX 750 MG in DEXTROSE/WATER 1 150ML.BAG IVPB STA (20:09)
[2017-08-01] MEDS ORDERED: NALOXONE 0.4 MG/ML 1 ML VIAL IV PRN (20:44)
[2017-08-01] MEDS ORDERED: MORPHINE SULFATE 4 MG/ML SYRINGE IV PRN (20:44)
[2017-08-01] MEDS ORDERED: ACETAMINOPHEN TAB 325 MG TAB PO PRN (20:44)
[2017-08-02 06:15] LABS: Basophils % (A) 0 %; Eosinophils # (A) 0.1 k/uL (0-0.7); Eosinophils % (A) 1 %; HCT 27.5 % (34.0-46.0); Hypochromasia Marked; Lymphocytes # (A) 0.5 k/uL (1.0-4.8); Lymphocytes % (A) 5 %; MCH 27.9 pg (25.0-35.0); MCHC 29.1 g/dL (31.0-37.0); MCV 95.7 fL (80.0-100.0); Mean Platelet Volume 6.9; Monocytes # (A) 0.3 k/uL (0-1.0); Monocytes % (A) 3 %; Neutrophils % (A) 90 %; Platelet Count 391 k/uL (150-450); Poikilocytosis Slight; RBC 2.87 m/uL (3.80-5.40); RDW 15.8 % (11.5-15.5); WBC 10.1 k/uL (3.8-10.6)
[2017-08-02 06:22] LABS: Anion Gap 7 mmol/L; Blood Urea Nitrogen 24 mg/dL (7-17); Calcium 8.1 mg/dL (8.4-10.2); Carbon Dioxide 30 mmol/L (22-30); Chloride 99 mmol/L (98-107); Glucose 93 mg/dL (74-99); Potassium 3.6 mmol/L (3.5-5.1); Sodium 136 mmol/L (137-145)
--- NOTE | 2017-08-02 10:45 | P.GSCN ---
History of Present Illness Consult date: 08/02/17 Reason for Consult: Colovesical fistula History of present illness: The patient is a 77-year-old female transferred from [facility] yesterday afternoon for evaluation of stool passing from the vagina. It's unclear whether this was stool passed along with urine or liquid stool draining through the vagina. Patient was evaluated and was noted to have a white blood count of 13,300. Lactic acid was 1.4. A urinalysis was obtained and showed many white blood cells 21 red cells but was negative for nitrite. Computed tomography scan of the abdomen and pelvis was obtained and was interpreted as showing mild right hydroureteronephrosis and air in the bladder suggestive of a vesicoenteric fistula. The patient was started on Levaquin and admitted due to presumed sepsis from a fistula. The patient had been in the hospital from 07/23 through 07/28 and underwent a laparoscopic cholecystectomy on 07/25. Computed tomography scan of the abdomen and pelvis on 07/23 also showed mild right hydroureteronephrosis. The bladder was unremarkable at that time. The right hydronephrosis was new compared with a computed tomography scan from 08/2016. At the time of admission the patient apparently was on Levaquin due to a urinary tract infection. A urine culture obtained when the patient was admitted showed no growth. No urinalysis was performed. 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 A PET scan in 09/2015 showed some increased activity in the rectal area but no evidence of metastatic disease. The patient has been followed by Dr. Delvalle. Review of Systems - Constitutional Denies fever - Respiratory Denies pain on inspiration - Gastrointestinal Reports abdominal pain (Mild pain in the lower abdomen), Reports diarrhea, Reports loss of appetite - Genitourinary Genitourinary: Reports as per HPI Past Medical History Past Medical History: Cancer, Dementia, GERD/Reflux, Hyperlipidemia, Hypertension, Memory Impairment, Pneumonia, Pulmonary Embolus (PE), Syncope, Thyroid Disorder Additional Past Medical History / Comment(s): CANCER- CHEMO/RADIATION OF THE ANAL canal 2013, murmur, arthritis, anemia,UTI,weakness . per [facility] paperwork pt stand ans transfer with assistance of 2 History of Any Multi-Drug Resistant Organisms: None Reported Past Surgical History: Cholecystectomy, Tonsillectomy Additional Past Surgical History / Comment(s): bilat lasik sx. colonoscopy Past Anesthesia/Blood Transfusion Reactions: No Reported Reaction Additional Past Anesthesia/Blood Transfusion Reaction / Comm: previous domumentation when pt was at [facility]- [facility] Caregiver at [facility] stated "not aware of any anesthesia problems for pt and unknown family hx". pt currently coming in from [facility] now. Smoking Status: Former smoker - Past Family History Father Family Medical History: Cancer Mother Family Medical History: Cancer Brother(s) Family Medical History: Cancer Sister(s) Family Medical History: Cancer Medications and Allergies Home Medications Medication Instructions Recorded Confirmed Type Mirtazapine 30 mg PO HS #30 tablet 05/10/16 08/01/17 Rx Levothyroxine Sodium [Synthroid] 25 mcg PO DAILY 10/25/16 08/01/17 History Calcium Polycarbophil [Fibercon] 625 mg PO BID 07/06/17 08/01/17 History Carbamide Peroxide [Debrox Otic] 5 drops RIGHT EAR HS PRN 07/06/17 08/01/17 History Cranberry 425mg Cap 425 mg PO BID 07/06/17 08/01/17 History Ergocalciferol (Vitamin D2) 50,000 unit PO BERGER 07/06/17 08/01/17 History [Vitamin D2] Loperamide [Imodium] 2 mg PO QID #12 cap 07/28/17 08/01/17 Rx traMADol HCl [Ultram] 50 mg PO QID PRN #20 tab 07/28/17 08/01/17 Rx Heparin Sodium,Porcine [Heparin 5,000 unit SQ Q12HR #28 vial 07/29/17 08/01/17 Rx Sodium] ALPRAZolam [Xanax] 0.25 mg PO HS@2100 08/01/17 08/01/17 History Bisacodyl [Dulcolax] 10 mg RECTAL DAILY PRN 08/01/17 08/01/17 History Levofloxacin [Levaquin] 500 mg PO DAILY 08/01/17 08/01/17 History Magnesium Hydroxide [Milk of 7,200 mg PO DAILY PRN 08/01/17 08/01/17 History Magnesia Concentrate] Menthol/Zinc Oxide [Calmoseptine 1 applic TOPICAL BID 08/01/17 08/01/17 History Ointment] Na Phos,M-B/Na Phos,Di-Ba [Fleet 1 dose RECTAL DAILY PRN 08/01/17 08/01/17 History Adult] Pantoprazole [Protonix] 40 mg PO DAILY 08/01/17 08/01/17 History Potassium Chloride [K-Tab ER] 10 meq PO DAILY 08/01/17 08/01/17 History Allergies Allergy/AdvReac Type Severity Reaction Status Date / Time No Known Allergies Allergy Verified 08/01/17 18:01 Surgical - Exam Vital Signs Temp Pulse Resp BP Pulse Ox 98.1 F 96 18 106/56 95 08/01/17 17:37 08/01/17 17:37 08/01/17 17:37 08/01/17 17:37 08/01/17 17:37 - General well developed, no distress - Neck no masses, no lymphadectomy - Respiratory normal respiratory effort - Abdomen Abdomen: soft, tender (Mild tenderness in suprapubic region), surgical scars - Genitourinary other (Mild to moderate edema of the labia. Alphonso stool present in the vagina. The patient voided during my examination and it appeared that most of the urine was relatively clear. I attempted a bimanual pelvic exam but this was too uncomfortable for the patient.) - Rectum Rectum: other (Mild edema of the anus but no irregularity suggestive of recurrent cancer) Results - Labs 08/02/17 05:37 08/02/17 05:37 Abnormal Lab Results - Last 24 Hours (Table) 08/01/17 08/01/17 08/01/17 Range/Units 19:09 19:09 19:09 WBC 13.3 H (3.8-10.6) k/uL RBC 3.18 L (3.80-5.40) m/uL Hgb 9.0 L (11.4-16.0) gm/dL Hct 29.1 L (34.0-46.0) % MCHC 30.9 L (31.0-37.0) g/dL RDW 16.1 H (11.5-15.5) % Neutrophils # 11.7 H (1.3-7.7) k/uL Lymphocytes # 0.9 L (1.0-4.8) k/uL Sodium 135 L (137-145) mmol/L Chloride 96 L (98-107) mmol/L Carbon Dioxide 32 H (22-30) mmol/L BUN 29 H (7-17) mg/dL Glucose 101 H (74-99) mg/dL Calcium (8.4-10.2) mg/dL AST 66 H (14-36) U/L ALT 55 H (9-52) U/L Total Protein 5.7 L (6.3-8.2) g/dL Albumin 2.5 L (3.5-5.0) g/dL Urine Appearance Turbid H (Clear) Urine Protein 2+ H (Negative) Urine Blood Moderate H (Negative) Ur Leukocyte Esterase Large H (Negative) Urine RBC 21 H (0-5) /hpf Urine WBC >182 H (0-5) /hpf Urine WBC Clumps Many H (None) /hpf Urine Bacteria Many H (None) /hpf Urine Yeast (Budding) Many H (None) /hpf 08/02/17 08/02/17 Range/Units 05:37 05:37 WBC (3.8-10.6) k/uL RBC 2.87 L (3.80-5.40) m/uL Hgb 8.0 L (11.4-16.0) gm/dL Hct 27.5 L (34.0-46.0) % MCHC 29.1 L (31.0-37.0) g/dL RDW 15.8 H (11.5-15.5) % Neutrophils # 9.0 H (1.3-7.7) k/uL Lymphocytes # 0.5 L (1.0-4.8) k/uL Sodium 136 L (137-145) mmol/L Chloride (98-107) mmol/L Carbon Dioxide (22-30) mmol/L BUN 24 H (7-17) mg/dL Glucose (74-99) mg/dL Calcium 8.1 L (8.4-10.2) mg/dL AST (14-36) U/L ALT (9-52) U/L Total Protein (6.3-8.2) g/dL Albumin (3.5-5.0) g/dL Urine Appearance (Clear) Urine Protein (Negative) Urine Blood (Negative) Ur Leukocyte Esterase (Negative) Urine RBC (0-5) /hpf Urine WBC (0-5) /hpf Urine WBC Clumps (None) /hpf Urine Bacteria (None) /hpf Urine Yeast (Budding) (None) /hpf Microbiology - Last 24 Hours (Table) 08/01/17 19:09 Urine Culture - Preliminary Urine,Catheterized Diabetes panel 08/01/17 08/02/17 Range/Units 19:09 05:37 Sodium 135 L 136 L (137-145) mmol/L Potassium 3.9 3.6 (3.5-5.1) mmol/L Chloride 96 L 99 (98-107) mmol/L Carbon Dioxide 32 H 30 (22-30) mmol/L BUN 29 H 24 H (7-17) mg/dL Creatinine 1.00 0.85 (0.52-1.04) mg/dL Glucose 101 H 93 (74-99) mg/dL Calcium 8.7 8.1 L (8.4-10.2) mg/dL AST 66 H (14-36) U/L ALT 55 H (9-52) U/L Alkaline Phosphatase 125 (38-126) U/L Total Protein 5.7 L (6.3-8.2) g/dL Albumin 2.5 L (3.5-5.0) g/dL Calcium panel 08/01/17 08/02/17 Range/Units 19:09 05:37 Calcium 8.7 8.1 L (8.4-10.2) mg/dL Albumin 2.5 L (3.5-5.0) g/dL Pituitary panel 08/01/17 08/02/17 Range/Units 19:09 05:37 Sodium 135 L 136 L (137-145) mmol/L Potassium 3.9 3.6 (3.5-5.1) mmol/L Chloride 96 L 99 (98-107) mmol/L Carbon Dioxide 32 H 30 (22-30) mmol/L BUN 29 H 24 H (7-17) mg/dL Creatinine 1.00 0.85 (0.52-1.04) mg/dL Glucose 101 H 93 (74-99) mg/dL Calcium 8.7 8.1 L (8.4-10.2) mg/dL Adrenal panel 08/01/17 08/02/17 Range/Units 19:09 05:37 Sodium 135 L 136 L (137-145) mmol/L Potassium 3.9 3.6 (3.5-5.1) mmol/L Chloride 96 L 99 (98-107) mmol/L Carbon Dioxide 32 H 30 (22-30) mmol/L BUN 29 H 24 H (7-17) mg/dL Creatinine 1.00 0.85 (0.52-1.04) mg/dL Glucose 101 H 93 (74-99) mg/dL Calcium 8.7 8.1 L (8.4-10.2) mg/dL Total Bilirubin 0.2 (0.2-1.3) mg/dL AST 66 H (14-36) U/L ALT 55 H (9-52) U/L Alkaline Phosphatase 125 (38-126) U/L Total Protein 5.7 L (6.3-8.2) g/dL Albumin 2.5 L (3.5-5.0) g/dL Assessment and Plan (1) Rectovaginal fistula Narrative/Plan: The patient's history and physical exam are more consistent with a rectovaginal fistula related to her previous radiation therapy for anal cancer, however a colovesical fistula related to diverticulitis could be another possibility. Her computed tomography scan appeared to show air in the bladder however there also appeared to be loops of bowel adjacent to the bladder and the bladder may have just been decompressed at the time of the CT giving the appearance of air within it. General surgical consultation should be obtained as the patient will need a diverting colostomy whether she has a colovesical fistula or rectovaginal fistula. Due to the previous radiation therapy repair of the fistula is not an option. Current Visit: Yes Status: Acute Code(s): N82.3 - FISTULA OF VAGINA TO LARGE INTESTINE SNOMED Code(s): 58011832 (2) Hydronephrosis Narrative/Plan: Right hydroureteronephrosis- this was also noted on a computed tomography scan on 07/23/2017 and is new compared with a computed tomography scan done in 2016. The hydronephrosis is mild and does not appear to have significantly affected her renal function. It is possibly related to her previous pelvic radiation therapy however recurrence of her anal cancer or inflammation from diverticulitis could also be a cause. At least at this time I do not feel that placement of a double-J catheter should be considered. Current Visit: Yes Status: Acute Code(s): N13.30 - UNSPECIFIED HYDRONEPHROSIS SNOMED Code(s): 11846806
--- NOTE | 2017-08-02 14:42 | P.GSCN ---
History of Present Illness Consult date: 08/02/17 History of present illness: Patient is a 77-year-old female transferred from [facility] with a complaint of passing stool from the vagina. A CAT scan was performed which revealed hydroureteronephrosis and air in the bladder which may represent a vesicoenteric fistula. A UA was performed which revealed many white cells but was negative for nitrate. The patient underwent a laparoscopic cholecystectomy July 25. 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 A PET scan in 2016 showed some increased activity in the rectal area but no evidence of metastatic disease. The patient is followed by Dr. Delvalle. The patient is unable to give any history, and history is obtained via the chart Past surgical history: 1. Cholecystectomy 2. Tonsillectomy 3. Bilateral Lasix surgery Past medical history: 1. Squamous cell carcinoma of the anus 2. Dementia 3. GERD 4. Hyperlipidemia 5. Hypertension 6. Pneumonia 7. Pulmonary embolus 8. Syncope 9. Thyroid disorder Review of Systems - Constitutional Reports as per HPI - Cardiovascular Reports as per HPI - Respiratory Reports as per HPI - Gastrointestinal Reports as per HPI - Genitourinary Genitourinary: Reports as per HPI Past Medical History Past Medical History: Cancer, Dementia, GERD/Reflux, Hyperlipidemia, Hypertension, Memory Impairment, Pneumonia, Pulmonary Embolus (PE), Syncope, Thyroid Disorder Additional Past Medical History / Comment(s): CANCER- CHEMO/RADIATION OF THE ANAL canal 2013, murmur, arthritis, anemia,UTI,weakness . per [facility] paperwork pt stand ans transfer with assistance of 2 History of Any Multi-Drug Resistant Organisms: None Reported Past Surgical History: Cholecystectomy, Tonsillectomy Additional Past Surgical History / Comment(s): bilat miriamik sx. colonoscopy Past Anesthesia/Blood Transfusion Reactions: No Reported Reaction Additional Past Anesthesia/Blood Transfusion Reaction / Comm: previous domumentation when pt was at [facility]- [facility] Caregiver at [facility] stated "not aware of any anesthesia problems for pt and unknown family hx". pt currently coming in from [facility] now. Smoking Status: Former smoker - Past Family History Father Family Medical History: Cancer Mother Family Medical History: Cancer Brother(s) Family Medical History: Cancer Sister(s) Family Medical History: Cancer Medications and Allergies Home Medications Medication Instructions Recorded Confirmed Type Mirtazapine 30 mg PO HS #30 tablet 05/10/16 08/01/17 Rx Levothyroxine Sodium [Synthroid] 25 mcg PO DAILY 10/25/16 08/01/17 History Calcium Polycarbophil [Fibercon] 625 mg PO BID 07/06/17 08/01/17 History Carbamide Peroxide [Debrox Otic] 5 drops RIGHT EAR HS PRN 07/06/17 08/01/17 History Cranberry 425mg Cap 425 mg PO BID 07/06/17 08/01/17 History Ergocalciferol (Vitamin D2) 50,000 unit PO BERGER 07/06/17 08/01/17 History [Vitamin D2] Loperamide [Imodium] 2 mg PO QID #12 cap 07/28/17 08/01/17 Rx traMADol HCl [Ultram] 50 mg PO QID PRN #20 tab 07/28/17 08/01/17 Rx Heparin Sodium,Porcine [Heparin 5,000 unit SQ Q12HR #28 vial 07/29/17 08/01/17 Rx Sodium] ALPRAZolam [Xanax] 0.25 mg PO HS@2100 08/01/17 08/01/17 History Bisacodyl [Dulcolax] 10 mg RECTAL DAILY PRN 08/01/17 08/01/17 History Levofloxacin [Levaquin] 500 mg PO DAILY 08/01/17 08/01/17 History Magnesium Hydroxide [Milk of 7,200 mg PO DAILY PRN 08/01/17 08/01/17 History Magnesia Concentrate] Menthol/Zinc Oxide [Calmoseptine 1 applic TOPICAL BID 08/01/17 08/01/17 History Ointment] Na Phos,M-B/Na Phos,Di-Ba [Fleet 1 dose RECTAL DAILY PRN 08/01/17 08/01/17 History Adult] Pantoprazole [Protonix] 40 mg PO DAILY 08/01/17 08/01/17 History Potassium Chloride [K-Tab ER] 10 meq PO DAILY 08/01/17 08/01/17 History Allergies Allergy/AdvReac Type Severity Reaction Status Date / Time No Known Allergies Allergy Verified 08/01/17 18:01 Surgical - Exam Vital Signs Temp Pulse Resp BP Pulse Ox 98.1 F 96 18 106/56 95 08/01/17 17:37 08/01/17 17:37 08/01/17 17:37 08/01/17 17:37 08/01/17 17:37 - General cachectic - ENT normal pinna, normal nares - Neck no masses, trachea midline, no lymphadectomy, no venous distension - Respiratory Decreased breath sounds at bases bilaterally - Cardiovascular Rhythm: regular Heart Sounds: normal: S1, S2 - Abdomen Abdomen: soft, bowel sounds - Psychiatric Memory impaired Results - Labs 08/02/17 05:37 08/02/17 05:37 Abnormal Lab Results - Last 24 Hours (Table) 08/01/17 08/01/17 08/01/17 Range/Units 19:09 19:09 19:09 WBC 13.3 H (3.8-10.6) k/uL RBC 3.18 L (3.80-5.40) m/uL Hgb 9.0 L (11.4-16.0) gm/dL Hct 29.1 L (34.0-46.0) % MCHC 30.9 L (31.0-37.0) g/dL RDW 16.1 H (11.5-15.5) % Neutrophils # 11.7 H (1.3-7.7) k/uL Lymphocytes # 0.9 L (1.0-4.8) k/uL Sodium 135 L (137-145) mmol/L Chloride 96 L (98-107) mmol/L Carbon Dioxide 32 H (22-30) mmol/L BUN 29 H (7-17) mg/dL Glucose 101 H (74-99) mg/dL Calcium (8.4-10.2) mg/dL AST 66 H (14-36) U/L ALT 55 H (9-52) U/L Total Protein 5.7 L (6.3-8.2) g/dL Albumin 2.5 L (3.5-5.0) g/dL Urine Appearance Turbid H (Clear) Urine Protein 2+ H (Negative) Urine Blood Moderate H (Negative) Ur Leukocyte Esterase Large H (Negative) Urine RBC 21 H (0-5) /hpf Urine WBC >182 H (0-5) /hpf Urine WBC Clumps Many H (None) /hpf Urine Bacteria Many H (None) /hpf Urine Yeast (Budding) Many H (None) /hpf 08/02/17 08/02/17 Range/Units 05:37 05:37 WBC (3.8-10.6) k/uL RBC 2.87 L (3.80-5.40) m/uL Hgb 8.0 L (11.4-16.0) gm/dL Hct 27.5 L (34.0-46.0) % MCHC 29.1 L (31.0-37.0) g/dL RDW 15.8 H (11.5-15.5) % Neutrophils # 9.0 H (1.3-7.7) k/uL Lymphocytes # 0.5 L (1.0-4.8) k/uL Sodium 136 L (137-145) mmol/L Chloride (98-107) mmol/L Carbon Dioxide (22-30) mmol/L BUN 24 H (7-17) mg/dL Glucose (74-99) mg/dL Calcium 8.1 L (8.4-10.2) mg/dL AST (14-36) U/L ALT (9-52) U/L Total Protein (6.3-8.2) g/dL Albumin (3.5-5.0) g/dL Urine Appearance (Clear) Urine Protein (Negative) Urine Blood (Negative) Ur Leukocyte Esterase (Negative) Urine RBC (0-5) /hpf Urine WBC (0-5) /hpf Urine WBC Clumps (None) /hpf Urine Bacteria (None) /hpf Urine Yeast (Budding) (None) /hpf Microbiology - Last 24 Hours (Table) 08/01/17 19:09 Urine Culture - Preliminary Urine,Catheterized Diabetes panel 08/01/17 08/02/17 Range/Units 19:09 05:37 Sodium 135 L 136 L (137-145) mmol/L Potassium 3.9 3.6 (3.5-5.1) mmol/L Chloride 96 L 99 (98-107) mmol/L Carbon Dioxide 32 H 30 (22-30) mmol/L BUN 29 H 24 H (7-17) mg/dL Creatinine 1.00 0.85 (0.52-1.04) mg/dL Glucose 101 H 93 (74-99) mg/dL Calcium 8.7 8.1 L (8.4-10.2) mg/dL AST 66 H (14-36) U/L ALT 55 H (9-52) U/L Alkaline Phosphatase 125 (38-126) U/L Total Protein 5.7 L (6.3-8.2) g/dL Albumin 2.5 L (3.5-5.0) g/dL Calcium panel 08/01/17 08/02/17 Range/Units 19:09 05:37 Calcium 8.7 8.1 L (8.4-10.2) mg/dL Albumin 2.5 L (3.5-5.0) g/dL Pituitary panel 08/01/17 08/02/17 Range/Units 19:09 05:37 Sodium 135 L 136 L (137-145) mmol/L Potassium 3.9 3.6 (3.5-5.1) mmol/L Chloride 96 L 99 (98-107) mmol/L Carbon Dioxide 32 H 30 (22-30) mmol/L BUN 29 H 24 H (7-17) mg/dL Creatinine 1.00 0.85 (0.52-1.04) mg/dL Glucose 101 H 93 (74-99) mg/dL Calcium 8.7 8.1 L (8.4-10.2) mg/dL Adrenal panel 08/01/17 08/02/17 Range/Units 19:09 05:37 Sodium 135 L 136 L (137-145) mmol/L Potassium 3.9 3.6 (3.5-5.1) mmol/L Chloride 96 L 99 (98-107) mmol/L Carbon Dioxide 32 H 30 (22-30) mmol/L BUN 29 H 24 H (7-17) mg/dL Creatinine 1.00 0.85 (0.52-1.04) mg/dL Glucose 101 H 93 (74-99) mg/dL Calcium 8.7 8.1 L (8.4-10.2) mg/dL Total Bilirubin 0.2 (0.2-1.3) mg/dL AST 66 H (14-36) U/L ALT 55 H (9-52) U/L Alkaline Phosphatase 125 (38-126) U/L Total Protein 5.7 L (6.3-8.2) g/dL Albumin 2.5 L (3.5-5.0) g/dL - Imaging CT scan - pelvis: report reviewed US - abdomen: report reviewed (It computed tomography scan reveals inflammatory changes in the pelvis. There is air in the urinary bladder that could relate to rectovesical fistula. Mildly dilated endometrial cavity right-sided hydronephrosis. Possible obstruction of the distal right ureter due to an from inflammatory changes. No definite ureteral calculus. Sigmoid diverticulosis. Starting at the lung bases. Emphysema) Assessment and Plan Assessment: Impression/plan: 1. Possible rectovaginal fistula related to prior radiation for anal cancer or diverticular disease 2. Dementia 3. Urinary tract infections 4. Right-sided hydronephrosis Plan: 1. From a surgical standpoint would consider diverting colostomy I do not feel that resection anastomosis is a good choice secondary to the radiation in the area.
[2017-08-02] MEDS: HEPARIN SODIUM,PORCINE 5,000 UNIT/ML 1 ML VIAL SQ SCH ×2 (17:01→21:04)
[2017-08-02] MEDS: SODIUM CHLORIDE 0.9% 1,000 ML IV SCH ×2 (17:02→21:04)
[2017-08-02] MEDS ORDERED: LEVOFLOXACIN 750MG-D5W PMX 750 MG in DEXTROSE/WATER 1 150ML.BAG IVPB SCH (21:00)
[2017-08-02] MEDS: MIRTAZAPINE 15 MG TAB PO SCH (21:04)
--- NOTE | 2017-08-02 22:30 | HP ---
HISTORY AND PHYSICAL DATE OF SERVICE: 08/02/2017 CHIEF COMPLAINT: Possible vaginal fistula. HISTORY OF PRESENT ILLNESS: This 77-year-old woman with a past medical history of multiple medical problems, currently a resident of [facility]. The patient was recently admitted to [facility] with complaints of change in mental status with UTI and sepsis and the patient also had cholecystitis. Patient underwent laparoscopic cholecystectomy. Patient improved significantly. Patient was sent to [facility] and Dr. Mckenzie is following the patient closely, but in the ECF, the patient noted actually stool coming out from the vagina, which colovaginal fistula was suspected. The patient was sent to [facility] and admitted for further evaluation and treatment. Currently the patient unable to provide a collected history. Most of the history is taken from my discussion with staff and review of chart at this time. Abdomen-pelvis CAT scan showed inflammatory change in the pelvis and rectovesical fistula was suspected and right- sided hydronephrosis was also suspected. No chest pain. No palpitations. PAST MEDICAL HISTORY: Dementia, GERD, hypertension, hyperlipidemia, memory impairment, pulmonary embolism, syncope, hypothyroidism, cholecystectomy. REVIEW OF SYSTEMS: Could not be taken. CURRENT MEDICATIONS: Home medications prior to admission include: 1. Ultram 50 mg q.i.d. p.r.n. 2. Magnesium hydroxide, milk of magnesia. 3. Fleet adult p.r.n. 4. Debrox 5 drops right eye. 5. Dulcolax 10 mg rectally daily. 6. Imodium 2 mg p.o. q.i.d. 7. Heparin 5000 subcu b.i.d. 8. FiberCon 625 mg p.o. b.i.d. 9. Calmoseptine 1 application b.i.d. 10.Cranberry 425 mg p.o. b.i.d. 11.Xanax 0.5 q.h.s. 13.Protonix 40 mg p.o. daily. 14.Synthroid 25 mcg p.o. daily. 15.Remeron 30 mg q.h.s. 16.Levaquin 500 mg p.o. daily. 17.Vitamin D2 50,000 units Friday. Allergies are none. Family, social history, review of systems could not be taken because of the dementia. PHYSICAL EXAM: The patient is confused. Pulse is 85, blood pressure 132/62, respirations 16, temperature 98.2 pulse ox 100% on room air. HEENT: Conjunctivae normal. Oral mucosa moist. NECK: No jugular venous distention. No carotid bruits. No lymph node enlargement. CARDIOVASCULAR: S1, S2 muffled. RESPIRATORY: Breath sounds diminished in the bases. A few scattered rhonchi. No crackles. ABDOMEN: Soft. Mild diffuse distension. Otherwise, nontender. No masses. No guarding, no rigidity. LEGS: No edema. No swelling. NERVOUS SYSTEM: Higher functions as mentioned earlier. Moves all 4 limbs. LYMPHATIC: No lymphadenopathy in neck or axillae. JOINTS: No active deforming arthropathy. LABS: WBC 10.2, hemoglobin is 8. Other labs are noted. ASSESSMENT: 1. 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 2. Increased WBC. 3. Anemia, normocytic. 4. Hyponatremia. 5. Increased AST, ALT. 6. History of recent laparoscopic cholecystectomy for acute on chronic cholecystitis. 7. History of dementia with cognitive impairment. 8. History of rectal cancer with chemotherapy and radiation. 9. Medical debility and gait dysfunction. DISCUSSION AND RECOMMENDATIONS: Recommend to continue current medical management, continue monitoring and symptomatic treatment. Otherwise, I would recommend broad-spectrum IV antibiotics. I would also recommend infectious disease evaluation as well as urology, surgical evaluation. Guarded prognosis because of multiple complex medical issues. Will resume the rest of the home medications. Patient has history of invasive carcinoma of the anus diagnosed in 2013. Diverting colostomy appears to be a good palliative measure rather than resection and anastomosis, as the patient has multiple comorbidities. Closely monitor with multiple consultants. Further recommendations to follow. MMODL / IJN: [id number] / MTDD
--- NOTE | 2017-08-03 00:06 | CONS ---
CONSULTATION DATE OF CONSULTATION: 08/02/2017. REASON FOR CONSULTATION: Colorectal fistula with UTI and sepsis. HISTORY OF PRESENT ILLNESS: The patient is a 77-year-old female who is admitted to this facility from 07/23 to 07/28 and underwent laparoscopic cholecystectomy on July 25. Subsequently has been transferred to [facility] for rehabilitation. The patient had been transferred from [facility] back to the hospital after the patient noticed to have a passing of stool from her vagina. With these symptoms, the patient has been evaluated by the ER physician. The patient did have a CT abdominal pelvis that shows inflammatory changes in the pelvis, air in the urinary bladder, refractory for likely fistula and mildly dilated endometrial cavity, right-sided hydronephrosis. The patient denies any high-grade fever. On presentation to hospital white count was elevated at 13.3. Urine has been positive with more than 1 as to 2 RBC and clamp. The patient did have blood cultures obtained and has been admitted to the hospital. She was started on Levaquin and infectious disease was consulted for further recommendation. The patient has been evaluated by Urology and surgery services and is planned for possible diverting colostomy not healing of this colovesical fistula. Most of the information has been obtained from review of the chart and talking to nursing staff and the patient currently and did have underlying dementia and pleasantly confused and was unable to answer, only simple questions answered. REVIEW OF SYSTEMS: Could not be reliably obtained. The positive points have been mentioned in HPI. PAST MEDICAL HISTORY: Significant for dementia, hypertension, hyperlipidemia, syncope, pulmonary embolism and colon cancer treated with chemoradiation March 2014. PAST PSYCHOLOGICAL HISTORY: Anxiety and depression. SOCIAL HISTORY: Social history remote history of smoking. No drinking or drug use. Currently a resident of [facility]. FAMILY HISTORY: Of positive for cancer, but unknown type. ALLERGIES: No known drug allergies. MEDICATIONS: Include the patient is currently on Levaquin, Tylenol, heparin, Synthroid, Remeron, morphine sulfate, Narcan and Ultram. EXAMINATION: Blood pressure 123/62 with a pulse of 84, temperature 98.3 she is 100% on room air. General description is an elderly female lying in bed in no distress. No tachypnea or accessory muscle of respiration use. HEENT: Shows pallor. No scleral icterus. Oral mucosa membranes dry. Neck: Trachea central. No thyromegaly lungs unlabored breathing. Clear to auscultation anteriorly. No wheeze or crackle. Heart S1, S2. Regular rate and rhythm. Normal. ABDOMEN: Soft. No organomegaly. Mild tenderness lower quadrant area. No guarding. No rigidity. EXTREMITIES: No edema of the feet. Skin examination no rash or mass palpable. Neurologic: The patient is awake, alert, x1 pleasantly confused, no agitation was noticed. LABS: Hemoglobin 8, white count of 13.3, BUN of 29, creatinine 1.0. Electrolytes have been normal. Liver enzymes mildly elevated. Urine has been positive. DIAGNOSTIC IMPRESSION AND PLAN: Patient admitted to the hospital with passing stool through her vaginal area, likely from a colovesical resection with some inflammation noticed in the pelvic area, likely consequence of acute complicated diverticulitis with a previous history of a colon cancer and status post radiation chemotherapy will be favoring more likely as a complication of diverticulitis rather than her previous cancer. The likely organism to cover with enteric gram-negative both aerobes and anaerobes. PLAN: 1. Discontinue the Levaquin as the patient is admitted to the hospital and concern is possibly for a resistant gram-negative pathogen. 2. The patient was started on Zosyn 3.375 g IV piggyback q.8 hours. 3. Gentle IV fluid. 4. Request the culture times surgery, they should continue further antibiotic therapy. 5. We will follow up on clinical condition and culture to further adjust medication if needed. Thank you for this consultation. I will follow this patient with you. MMODL / IJN: [id number] /
[2017-08-03] MEDS: PIPERACILLIN-TAZOBACTAM 3.375 GM in DEXTROSE/WATER 1 50ML.BAG IVPB SCH ×4 (02:30→23:45)
[2017-08-03] MEDS: SODIUM CHLORIDE 0.9% 1,000 ML IV SCH (05:44)
[2017-08-03] MEDS: LEVOTHYROXINE 25 MCG TAB PO SCH (05:44)
[2017-08-03] MEDS: HEPARIN SODIUM,PORCINE 5,000 UNIT/ML 1 ML VIAL SQ SCH ×2 (06:51→20:28)
[2017-08-03 07:36] LABS: Anisocytosis Slight; Basophils % (A) 0 %; Eosinophils # (A) 0.1 k/uL (0-0.7); Eosinophils % (A) 1 %; HCT 28.8 % (34.0-46.0); HGB 8.2 gm/dL (11.4-16.0); Hypochromasia Marked; Lymphocytes # (A) 0.5 k/uL (1.0-4.8); Lymphocytes % (A) 6 %; MCH 27.5 pg (25.0-35.0); MCHC 28.6 g/dL (31.0-37.0); Mean Platelet Volume 6.8; Monocytes # (A) 0.3 k/uL (0-1.0); Monocytes % (A) 3 %; Neutrophils # (A) 8.2 k/uL (1.3-7.7); Neutrophils % (A) 89 %; Platelet Count 399 k/uL (150-450); Poikilocytosis Slight; RDW 16.1 % (11.5-15.5); WBC 9.3 k/uL (3.8-10.6)
[2017-08-03 07:46] LABS: Blood Urea Nitrogen 15 mg/dL (7-17); Calcium 7.3 mg/dL (8.4-10.2); Chloride 98 mmol/L (98-107); Glucose 75 mg/dL (74-99); Potassium 3.4 mmol/L (3.5-5.1); Sodium 133 mmol/L (137-145)
[2017-08-03 08:02] LABS: Anion Gap 12 mmol/L; Carbon Dioxide 23 mmol/L (22-30)
--- NOTE | 2017-08-03 10:00 | P.PN ---
Subjective Progress Note Date: 08/03/17 Patient is a 77-year-old female transferred from [facility] with a complaint of passing stool from the vagina. 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 She will most likely benefit from a diverting ostomy. She has no new complaints this morning. Objective - Vital Signs Vital signs: Vital Signs Temp 98.0 F 08/03/17 07:00 Pulse 89 08/03/17 07:00 Resp 18 08/03/17 07:00 BP 102/57 08/03/17 07:00 Pulse Ox 96 08/03/17 07:00 Intake & Output 08/02/17 08/03/17 08/03/17 18:59 06:59 18:59 Intake Total 1090 Output Total 1 1 Balance -1 1090 -1 Weight 50.349 kg 50.349 kg Intake: Intake, IV Titration 200 Amount Levofloxacin 750Mg-D5w 150 Pmx 750 mg In Dextrose/ Water 1 150ml.bag @ 100 mls/hr IVPB Q24H YULI Rx#: [id number] Piperacillin-Tazobactam 3 50 .375 gm In Dextrose/Water 1 50ml.bag @ 12.5 mls/hr IVPB Q8HR YULI Rx#: [id number] Oral 890 Output: Urine 1 1 Other: Voiding Method Diaper Diaper # Voids 3 1 2 # Bowel Movements 2 - Constitutional General appearance: Present: average body habitus - Respiratory Details: Slightly decreased breath sounds at the bases - Cardiovascular Rhythm: regular Heart sounds: normal: S1, S2 - Gastrointestinal Gastrointestinal Comment(s): Mild tenderness suprapubic area General gastrointestinal: Present: normal bowel sounds, soft - Labs CBC & Chem 7: 08/03/17 07:10 08/03/17 07:10 Labs: Abnormal Lab Results - Last 24 Hours (Table) 08/03/17 08/03/17 Range/Units 07:10 07:10 RBC 3.00 L (3.80-5.40) m/uL Hgb 8.2 L (11.4-16.0) gm/dL Hct 28.8 L (34.0-46.0) % MCHC 28.6 L (31.0-37.0) g/dL RDW 16.1 H (11.5-15.5) % Neutrophils # 8.2 H (1.3-7.7) k/uL Lymphocytes # 0.5 L (1.0-4.8) k/uL Sodium 133 L (137-145) mmol/L Potassium 3.4 L (3.5-5.1) mmol/L Calcium 7.3 L (8.4-10.2) mg/dL Microbiology - Last 24 Hours (Table) 08/01/17 19:09 Urine Culture - Final Urine,Catheterized 08/01/17 19:09 Blood Culture - Preliminary Blood No Growth after 24 hours Assessment and Plan Assessment: Impression/plan: 1. Possible rectovaginal fistula related to prior radiation for anal cancer or diverticular disease 2. Dementia 3. Urinary tract infections 4. Right-sided hydronephrosis Plan: 1. From a surgical standpoint would consider diverting colostomy I do not feel that resection anastomosis is a good choice secondary to the radiation in the area. 2. Patient presently on piperacillin/tazobactam
[2017-08-03] MEDS: 0.9% NACL WITH KCL 40 MEQ/L 1,000 ML IV SCH (12:36)
[2017-08-03] MEDS ORDERED: NACL IV SCH ×2 (17:12)
[2017-08-03] MEDS ORDERED: KCL IV SCH ×2 (17:12)
[2017-08-03] MEDS ORDERED: POTASSIUM CHLORIDE IV SCH ×2 (17:12)
--- NOTE | 2017-08-03 19:31 | PN ---
PROGRESS NOTE DATE OF SERVICE: 08/03/2017 This 77-year-old woman was admitted with colovesical fistula with possible UTI and sepsis is being closely monitored. Surgery is following the patient closely. The possibility of diverting colostomy is an option. Patient continues to be confused. PAST MEDICAL HISTORY: Reviewed. REVIEW OF SYSTEMS: Could not be taken, the patient is confused. CURRENT MEDICATIONS ARE: Reviewed and include: 1. Tylenol 650 q.6h p.r.n. 2. Heparin 5000 units subcu b.i.d. 3. Synthroid 25 mcg. 4. Remeron 30 mg q.h.s. 5. Morphine sulfate. 6. Narcan. 7. Zosyn IV. 8. Ultram. PHYSICAL EXAM: Patient is alert, oriented x1. Pulse is 95, blood pressure 140/36, respirations 16, temperature 97.1, pulse ox 97% on room air. HEENT: Conjunctivae normal. NECK: No jugular venous distention. Cardiovascular: S1, S2 muffled. Respiratory: Breath sounds diminished in the bases. A few scattered rhonchi. No crackles. ABDOMEN: Soft. Mild diffuse discomfort. No guarding. No rigidity. No mass palpable. Legs are no edema. No swelling. Central nervous system: No focal deficits. LABORATORY DATA: WBC 9.2, hemoglobin 9.2, and potassium 3.4. ASSESSMENT: 1. 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 2. Increased WBC. 3. Hypokalemia. 4. Anemia normocytic. 5. Hyponatremia. 6. Increased AST/ALT. 7. History of recent laparoscopic cholecystectomy with acute on chronic cholecystitis. 8. History of dementia, cognitive impairment. 9. History of rectal cancer with chemotherapy radiation. 10.Medical debility. 11.Gait dysfunction. DISCUSSION AND RECOMMENDATIONS: I recommend to continue current medications, management and symptomatic treatment. Continue the broad-spectrum IV antibiotics. Closely follow with infectious disease and surgery. Guarded prognosis. Further recommendations to follow. MMODL / IJN: [id number] /
[2017-08-03] MEDS: MIRTAZAPINE 15 MG TAB PO SCH (20:28)
[2017-08-04] MEDS: 0.9% NACL WITH KCL 40 MEQ/L 1,000 ML IV SCH ×2 (03:36→16:48)
[2017-08-04] MEDS: LEVOTHYROXINE 25 MCG TAB PO SCH (05:57)
[2017-08-04 07:39] LABS: Anisocytosis Slight; Basophils % (A) 0 %; Eosinophils # (A) 0.1 k/uL (0-0.7); Eosinophils % (A) 1 %; HCT 28.8 % (34.0-46.0); HGB 8.2 gm/dL (11.4-16.0); Hypochromasia Marked; Lymphocytes # (A) 0.5 k/uL (1.0-4.8); Lymphocytes % (A) 6 %; MCH 27.7 pg (25.0-35.0); MCHC 28.5 g/dL (31.0-37.0); MCV 97.1 fL (80.0-100.0); Monocytes # (A) 0.3 k/uL (0-1.0); Monocytes % (A) 3 %; Neutrophils % (A) 88 %; Platelet Count 380 k/uL (150-450); Poikilocytosis Slight; RBC 2.97 m/uL (3.80-5.40); RDW 16.1 % (11.5-15.5); WBC 9.1 k/uL (3.8-10.6)
[2017-08-04 07:51] LABS: Anion Gap 8 mmol/L; Blood Urea Nitrogen 13 mg/dL (7-17); Calcium 7.8 mg/dL (8.4-10.2); Carbon Dioxide 25 mmol/L (22-30); Chloride 104 mmol/L (98-107); Glucose 95 mg/dL (74-99); Potassium 4.2 mmol/L (3.5-5.1); Sodium 137 mmol/L (137-145)
[2017-08-04] MEDS: HEPARIN SODIUM,PORCINE 5,000 UNIT/ML 1 ML VIAL SQ SCH ×2 (08:14→20:14)
[2017-08-04] MEDS: PIPERACILLIN-TAZOBACTAM 3.375 GM in DEXTROSE/WATER 1 50ML.BAG IVPB SCH ×3 (08:14→23:49)
--- NOTE | 2017-08-04 11:23 | P.PN ---
Subjective Progress Note Date: 08/04/17 77-year-old female seen and examined at bedside patient was transferred on August 03 for [facility] facility after care providers were concerned that the patient was passing stool from the vagina. 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 Noted from the rectum liquid brown stool being passed. Skin is excoriated around the rectum. The labia and suprapubic area swollen. Upon inspection of the vagina not able to appreciate any liquid brown stool no vaginal drainage noted Objective - Vital Signs Vital signs: Vital Signs Temp 98.1 F 08/04/17 07:00 Pulse 84 08/04/17 07:00 Resp 16 08/04/17 07:00 BP 135/65 08/04/17 07:00 Pulse Ox 95 08/04/17 07:00 Intake & Output 08/03/17 08/04/17 08/04/17 18:59 06:59 18:59 Intake Total 120 Output Total 2 Balance 118 Weight 50.349 kg Intake: Oral 120 Output: Urine 2 Other: Voiding Method Diaper Diaper Diaper # Voids 3 1 - Exam Physical exam 77-year-old female looking older than stated age resting in bed pleasant oriented to person and place Lungs diminished at the bases otherwise adequate air movement Heart S1-S2 audible regular Abdomen soft no facial grimacing with palpitation to the abdominal wall bowel tones present nausea no vomiting incontinent of urine incontinent of stool noted from the rectum brown in color liquid Extremities no heel breakdown no edema - Labs CBC & Chem 7: 08/04/17 07:15 08/04/17 07:15 Labs: Abnormal Lab Results - Last 24 Hours (Table) 08/04/17 08/04/17 Range/Units 07:15 07:15 RBC 2.97 L (3.80-5.40) m/uL Hgb 8.2 L (11.4-16.0) gm/dL Hct 28.8 L (34.0-46.0) % MCHC 28.5 L (31.0-37.0) g/dL RDW 16.1 H (11.5-15.5) % Neutrophils # 8.0 H (1.3-7.7) k/uL Lymphocytes # 0.5 L (1.0-4.8) k/uL Calcium 7.8 L (8.4-10.2) mg/dL Microbiology - Last 24 Hours (Table) 08/01/17 19:09 Blood Culture - Preliminary Blood No Growth after 48 hours Assessment and Plan Assessment: Impression Dementia with no behavior disturbance Right-sided hydronephrosis History of rectal cancer status post chemo and radiation treatment Present on admission possible stool from vagina 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 ruled out Present on admission UTI ruled out with a urine culture negative A recent laparoscopic cholecystectomy July 25 Anemia of chronic illness with no evidence of a GI bleed Plan Nothing by mouth after midnight Scheduled tomorrow for a diverting colostomy for possible colovesical fistula or rectovaginal fistula IV hydration DVT and GI prophylaxis Repeat labs in the morning continue IV Zosyn as ordered The above impression and plan of care have been discussed and directed by signing physician. Aysha Dorsey nurse practitioner acting as scribe for signing physician.
--- NOTE | 2017-08-04 11:32 | PN ---
PROGRESS NOTE DATE OF SERVICE: 08/03/2017 REASON FOR FOLLOWUP: Diverticulitis with colovesical fistula. INTERVAL HISTORY: The patient was seen on rounds on afternoon of 08/03/2017 where the patient has been afebrile. She is more awake alert, breathing comfortably. Denies having any chest pain, cough. No abdominal pain or any diarrhea. PHYSICAL EXAMINATION: On examination, blood pressure 135/55 with a pulse of 84, temperature of 98.1. She is 95% on 2 L nasal cannula. General description is an elderly female lying in bed in no distress. RESPIRATORY SYSTEM: Unlabored breathing, clear to auscultation anteriorly. HEART: S1, S2. Regular rate and rhythm. ABDOMEN: Soft, no tenderness. EXTREMITIES: No edema of the feet. LABS: Hemoglobin is 8.2, white count 9.3, BUN of 15, creatinine 0.60. Blood culture has been negative so far. DIAGNOSTIC IMPRESSION AND PLAN: Patient with colovesical fistula with likely component of diverticulitis for which the patient will continue Zosyn. Await diverting colostomy per Surgery, at which time deep culture should be obtained. Continue supportive care. MMODL / IJN: [id number] /
[2017-08-04] MEDS ORDERED: MORPHINE SULFATE 4 MG/ML SYRINGE IV PRN (12:40)
[2017-08-04] MEDS: FAMOTIDINE 20 MG TAB PO SCH ×2 (12:55→20:14)
--- NOTE | 2017-08-04 20:11 | PN ---
PROGRESS NOTE DATE OF SERVICE: 08/04/2017. INTERVAL HISTORY: This 77-year-old woman who was admitted with possible colovesical fistula, also had a UTI and sepsis. The patient was evaluated by infectious Disease and Surgery is planning possible surgery tomorrow. No chest pain. No palpitations. No fever. EXAM: Pulse 89, blood pressure 145/70, respiratory rate 16, temperature 98 degrees, pulse ox 98% on 1 L. HEENT: Conjunctivae normal. Neck: No jugular venous distention. Cardiovascular: S1, S2 muffled. Respiratory: Breath sounds diminished in the bases. A few scattered rhonchi. No crackles. ABDOMEN: Soft, nontender. No mass palpable. No guarding. No rigidity. LABS: WBC 9.1, hemoglobin is 8.2, sodium 137, potassium 4.2. ASSESSMENT: 1. 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 2. Increased WBC. 3. Hypokalemia. 4. Anemia normocytic. 5. Hyponatremia. 6. Increased AST/ALT. 7. History of recent laparoscopic cholecystectomy with acute on chronic cholecystitis. 8. History of dementia, cognitive impairment. 9. History of rectal cancer with chemotherapy radiation. 10.History of medical debility. 11.Gait dysfunction. RECOMMENDATIONS AND DISCUSSION: Recommend to continue current medications, continue with monitoring, symptomatic treatment. Otherwise, at this time, we will monitor the patient closely with surgery and Infectious Disease. Guarded prognosis because of multiple complex medical issues and further recommendations to follow. MMODL / IJN: [id number] /
[2017-08-04] MEDS: MIRTAZAPINE 15 MG TAB PO SCH (20:14)
--- NOTE | 2017-08-04 23:17 | PN ---
PROGRESS NOTE DATE OF SERVICE: 08/04/2017. REASON FOR FOLLOW UP: Diverticulitis with colovesical fistula. INTERVAL HISTORY: The patient is afebrile, she is breathing comfortably. Denies any chest pain, shortness of breath or cough. No abdominal pain. No nausea, vomiting, or any diarrhea. EXAMINATION: Blood pressure 137/54 with a pulse of 86, temperature of 97.9. She is 97% on room air. GENERAL DESCRIPTION: An elderly female, lying in bed in no distress. RESPIRATORY SYSTEM: Unlabored breathing. Clear to auscultation anteriorly. HEART: S1, S2. Regular rate and rhythm. ABDOMEN: Soft, no tenderness. No organomegaly. EXTREMITIES: No edema of feet. LABS: Hemoglobin 8.2, white count of 9.1 with a BUN of 13, creatinine 0.68. Blood culture has been negative. DIAGNOSTIC IMPRESSION AND PLAN: Patient with diverticulitis with colovesical fistula, awaiting surgical procedure, diverting colostomy and deep cultures at time of surgery. She will be continued on Zosyn this morning, antibiotic antibiotics further based on culture report. Continue supportive care. MMODL / IJN: [id number] /
[2017-08-05] MEDS: traMADol 50 MG TAB PO PRN (00:19)
[2017-08-05] MEDS ORDERED: MIDAZOLAM 2 MG/2 ML VIAL IV PRN (05:23)
[2017-08-05] MEDS ORDERED: ONDANSETRON 4 MG/2 ML VIAL IVP ONE (05:23)
[2017-08-05] MEDS ORDERED: DEXAMETHASONE SOD PHOSPHATE 10 MG/ML 1 ML VIAL IV ONE (05:23)
[2017-08-05] MEDS: LEVOTHYROXINE 25 MCG TAB PO SCH (05:48)
[2017-08-05 05:50] LABS: Anisocytosis Slight; Basophils % (A) 0 %; Eosinophils # (A) 0.1 k/uL (0-0.7); Eosinophils % (A) 1 %; HCT 30.7 % (34.0-46.0); HGB 9.5 gm/dL (11.4-16.0); Hypochromasia Marked; Lymphocytes # (A) 0.6 k/uL (1.0-4.8); Lymphocytes % (A) 7 %; MCH 28.9 pg (25.0-35.0); MCHC 30.8 g/dL (31.0-37.0); Mean Platelet Volume 6.9; Monocytes # (A) 0.3 k/uL (0-1.0); Monocytes % (A) 3 %; Neutrophils # (A) 7.8 k/uL (1.3-7.7); Neutrophils % (A) 87 %; Platelet Count 389 k/uL (150-450); Poikilocytosis Slight; RBC 3.27 m/uL (3.80-5.40); RDW 16.1 % (11.5-15.5); WBC 8.9 k/uL (3.8-10.6)
[2017-08-05] MEDS: 0.9% NACL WITH KCL 40 MEQ/L 1,000 ML IV SCH (05:54)
[2017-08-05 06:03] LABS: Anion Gap 8 mmol/L; Blood Urea Nitrogen 13 mg/dL (7-17); Carbon Dioxide 24 mmol/L (22-30); Chloride 105 mmol/L (98-107); Glucose 98 mg/dL (74-99); Potassium 4.4 mmol/L (3.5-5.1); Sodium 137 mmol/L (137-145)
[2017-08-05] MEDS ORDERED: IV FLUID CONTINUATION 1,000 ML IV ONE ×2 (07:12→09:20)
[2017-08-05] MEDS ORDERED: MIDAZOLAM 2 MG/2 ML VIAL IV ONE (07:30)
[2017-08-05] MEDS ORDERED: fentaNYL (PF) 50 MCG/ML 2 ML AMP IV ONE (07:30)
[2017-08-05] MEDS ORDERED: NEOSTIGMINE 1 MG/ML 10 ML VIAL ONE (08:08)
[2017-08-05] MEDS ORDERED: SUCCINYLCHOLINE CHLORIDE 100 MG/5 ML SYR IV ONE (08:08)
[2017-08-05] MEDS ORDERED: HEPARIN SODIUM,PORCINE 5,000 UNIT/ML 1 ML VIAL ONE (08:08)
[2017-08-05] MEDS ORDERED: LIDOCAINE 1% INJ 10MG/ML (20 ML MDV) ONE (08:08)
[2017-08-05] MEDS ORDERED: PHENYLEPHRINE-0.9% NACL SYG 1 MG/10 ML SYRINGE ONE (08:08)
[2017-08-05] MEDS ORDERED: PROPOFOL 10 MG/ML 20 ML VIAL IV ONE (08:08)
[2017-08-05] MEDS ORDERED: fentaNYL (PF) 50 MCG/ML 2 ML AMP ONE (08:08)
[2017-08-05] MEDS ORDERED: ROCURONIUM BROMIDE 10 MG/ML 10 ML VIAL IV ONE (08:08)
[2017-08-05] MEDS ORDERED: GLYCOPYRROLATE 0.2 MG/ML 2 ML VIAL ONE (08:08)
[2017-08-05] MEDS ORDERED: LACTATED RINGERS 1,000 ML IV ONE (08:30)
[2017-08-05] MEDS ORDERED: ONDANSETRON 4 MG/2 ML VIAL IVP PRN (08:58)
--- NOTE | 2017-08-05 09:02 | P.OP ---
Date of Procedure: 08/05/17 Preoperative Diagnosis: Colovaginal fistula Postoperative Diagnosis: Colovaginal fistula Procedure(s) Performed: Diverging sigmoid colostomy Anesthesia: LORENA Surgeon: Nikolas Gardner Estimated Blood Loss (ml): 10 Pathology: none sent Condition: stable Disposition: PACU Description of Procedure: The patient's placed on the operative table in the supine position. She received general anesthesia. Her abdomen was prepped and draped usual fashion. The abdomen was entered through a low midline incision. The left colon and sigmoid colon visualized. There was hard stool in the colon. The sigmoid colon was mobilized by dividing the peritoneal attachments. And then the proximal sigmoid colon was transected with a GI stapler. The white line of Toldt was divided in the proximal colon was mobilized. At this point a suitable spot for the colostomy was found on the left abdominal wall. Using a pair of Rosa Maria clamps the fascia and skin were grasped and then the colostomy skin opening was made with 15 blade. A cruciate incision was then made in the fascia and then the colon was brought out through the colostomy site. The fascia was then closed with looped #1 PDS suture. Skin was closed johan. The colostomy then matured with 3-0 Vicryl suture. Patient top procedure well and was sent to recovery in stable condition.
[2017-08-05] MEDS ORDERED: HYDROmorphone 0.5 MG/0.5 ML SYRINGE IVP ONE ×3 (09:27→09:32)
[2017-08-05] MEDS: LACTATED RINGERS 1,000 ML IV SCH (10:35)
[2017-08-05] MEDS: PIPERACILLIN-TAZOBACTAM 3.375 GM in DEXTROSE/WATER 1 50ML.BAG IVPB SCH ×3 (10:37→23:52)
[2017-08-05] MEDS: HEPARIN SODIUM,PORCINE 5,000 UNIT/ML 1 ML VIAL SQ SCH ×2 (10:39→20:41)
[2017-08-05] MEDS: D5-0.45% NACL WITH KCL 20MEQ/L 1,000 ML IV SCH ×2 (10:43→19:24)
[2017-08-05] MEDS: MORPHINE SULFATE 4 MG/ML SYRINGE IVP PRN ×2 (11:01→15:50)
[2017-08-05] MEDS: FAMOTIDINE 20 MG TAB PO SCH ×2 (12:51→20:41)
--- NOTE | 2017-08-05 18:24 | PN ---
PROGRESS NOTE DATE OF SERVICE: 08/05/2017 This 77-year-old woman who was admitted with a colovesical fistula also a UTI and sepsis. Patient is being closely monitored at this time. No chest pain. No palpitations. No fever. The patient is confused. The patient underwent diverting sigmoid colostomy for colovaginal fistula by Dr. Gardner yesterday. On exam, pulse is 80, blood pressure 142/70, respiration 16, temperature 97.9, pulse ox 97% on 2 L. HEENT: Conjunctivae normal. Oral mucosa moist. NECK: No jugular venous distention. No carotid bruit. No lymph node enlargement. CARDIOVASCULAR SYSTEM: S1, S2 muffled. RESPIRATORY SYSTEM: Breath sounds diminished at the bases. A few scattered rhonchi. ABDOMEN: Status post surgery. LEGS: No edema. No swelling. NERVOUS SYSTEM: No focal deficit. LABS: WBC 8.9, hemoglobin 9.5. ASSESSMENT: 1. Status post diverting sigmoid colostomy for colovaginal fistula. 2. Acute urinary tract infection with sepsis, present on admission. 3. Increased white count. 4. Hypokalemia. 5. Anemia, normocytic. 6. Hyponatremia. 7. Increased AST, ALT. 8. History of recent laparoscopic cholecystectomy for acute on chronic cholecystitis. 9. History of dementia, cognitive impairment. 10.History of rectal cancer with chemotherapy and radiation. 11.History of medical debility. 12.Gait dysfunction. RECOMMENDATIONS AND DISCUSSION: I recommend to continue with symptomatic treatment, repeat labs. Otherwise, I would recommend continuing with the broad-spectrum IV antibiotics. Closely follow with Surgery. PT/OT evaluation. Guarded prognosis. Further recommendations to follow. MMODL / IJN: [id number] /
[2017-08-05] MEDS: MIRTAZAPINE 15 MG TAB PO SCH (20:41)
--- NOTE | 2017-08-05 21:51 | PN ---
PROGRESS NOTE DATE OF SERVICE: 08/05/2017 REASON FOR FOLLOWUP: Diverticulitis with colovesical fistula. INTERVAL HISTORY: The patient is afebrile. The patient was taken to the OR this morning by Dr. Gardner. The patient is status post diverting sigmoid colostomy. The patient tolerated the procedure. Hemoglobin is stable. No nausea. No vomiting or any diarrhea. PHYSICAL EXAMINATION: Blood pressure 142/76 with a pulse of 88, temperature 97.9. She is 97% on 2 L nasal cannula. General description is an elderly female lying in bed in no distress. RESPIRATORY SYSTEM: Unlabored breathing. Clear to auscultation anteriorly. HEART: S1, S2. Regular rate and rhythm. ABDOMEN: Soft. No tenderness. EXTREMITIES: No edema of the feet. LABS: Hemoglobin 9.5, white count 8.9, BUN of 13, creatinine 0.67. DIAGNOSTIC IMPRESSION AND PLAN: Patient with likely sigmoid diverticulitis with colovesical fistula, status post diverting colostomy. The patient will continue on Zosyn. Waiting for her condition to stabilize. Will switch her to oral antibiotics on discharge if the patient continues to improve. Continue with supportive care. MMODL / IJN: [id number] /
[2017-08-06] MEDS: D5-0.45% NACL WITH KCL 20MEQ/L 1,000 ML IV SCH ×2 (03:22→12:39)
[2017-08-06] MEDS: LEVOTHYROXINE 25 MCG TAB PO SCH (05:58)
[2017-08-06] MEDS: LACTATED RINGERS 1,000 ML IV SCH (08:15)
[2017-08-06] MEDS: PIPERACILLIN-TAZOBACTAM 3.375 GM in DEXTROSE/WATER 1 50ML.BAG IVPB SCH ×3 (08:21→23:18)
[2017-08-06] MEDS: traMADol 50 MG TAB PO PRN ×2 (08:24→22:29)
[2017-08-06] MEDS: FAMOTIDINE 20 MG TAB PO SCH ×2 (08:25→22:22)
[2017-08-06] MEDS: HEPARIN SODIUM,PORCINE 5,000 UNIT/ML 1 ML VIAL SQ SCH ×2 (08:25→22:23)
[2017-08-06 09:13] LABS: Basophils % (A) 0 %; Eosinophils # (A) 0.2 k/uL (0-0.7); Eosinophils % (A) 1 %; HCT 29.5 % (34.0-46.0); Hypochromasia Marked; Lymphocytes # (A) 0.6 k/uL (1.0-4.8); Lymphocytes % (A) 6 %; MCH 28.5 pg (25.0-35.0); MCHC 30.4 g/dL (31.0-37.0); MCV 93.7 fL (80.0-100.0); Mean Platelet Volume 6.9; Monocytes # (A) 0.3 k/uL (0-1.0); Monocytes % (A) 3 %; Neutrophils # (A) 9.3 k/uL (1.3-7.7); Neutrophils % (A) 88 %; Platelet Count 374 k/uL (150-450); Poikilocytosis Slight; RBC 3.15 m/uL (3.80-5.40); RDW 15.9 % (11.5-15.5); WBC 10.6 k/uL (3.8-10.6)
[2017-08-06 09:20] LABS: Anion Gap 7 mmol/L; Blood Urea Nitrogen 8 mg/dL (7-17); Calcium 7.8 mg/dL (8.4-10.2); Carbon Dioxide 27 mmol/L (22-30); Chloride 101 mmol/L (98-107); Glucose 151 mg/dL (74-99); Potassium 4.7 mmol/L (3.5-5.1); Sodium 135 mmol/L (137-145)
--- NOTE | 2017-08-06 13:16 | P.PN ---
Subjective Progress Note Date: 08/06/17 77-year-old female seen and examined resting in bed pleasantly confused no nausea no vomiting postop August 05 diverging sigmoid colostomy for colovaginal fistula stoma pink scant amount of drainage in the ileostomy bag ostomy in the left lower abdominal wall surgical dressing dry incontinent urine hemoglobin 9 white count 10.6 electrolytes within normal limits Objective - Vital Signs Vital signs: Vital Signs Temp 98.4 F 08/06/17 08:36 Pulse 94 08/06/17 08:36 Resp 16 08/06/17 08:36 BP 137/63 08/06/17 08:36 Pulse Ox 100 08/06/17 08:36 Intake & Output 08/05/17 08/06/17 08/06/17 18:59 06:59 18:59 Intake Total 1350 Output Total 820 800 Balance 530 -800 Weight 50.349 kg 50.349 kg Intake: IV 1350 Output: Urine 800 800 Estimated Blood Loss 20 Other: Voiding Method Diaper Indwelling Catheter Indwelling Catheter - Constitutional Constitutional Comment(s): Physical exam 77-year-old female awake resting in bed oriented to self only Lungs anterior essentially clear no shortness of breath Heart S1-S2 audible regular Abdomen soft surgical tenderness appropriate mild swelling noted in the suprapubic area hypoactive bowel tones stoma left lower quadrant pink scant amount of drainage in the ostomy bag no reports of nausea vomiting indwelling Spear catheter in place Extremities no edema - Labs CBC & Chem 7: 08/06/17 08:29 08/06/17 08:29 Labs: Abnormal Lab Results - Last 24 Hours (Table) 08/06/17 08/06/17 Range/Units 08:29 08:29 RBC 3.15 L (3.80-5.40) m/uL Hgb 9.0 L (11.4-16.0) gm/dL Hct 29.5 L (34.0-46.0) % MCHC 30.4 L (31.0-37.0) g/dL RDW 15.9 H (11.5-15.5) % Neutrophils # 9.3 H (1.3-7.7) k/uL Lymphocytes # 0.6 L (1.0-4.8) k/uL Sodium 135 L (137-145) mmol/L Glucose 151 H (74-99) mg/dL Calcium 7.8 L (8.4-10.2) mg/dL Microbiology - Last 24 Hours (Table) 08/01/17 19:09 Blood Culture - Preliminary Blood No Growth after 96 hours Assessment and Plan Assessment: Impression Dementia with no behavior disturbance Right-sided hydronephrosis History of rectal cancer status post chemo and radiation treatment Present on admission possible stool from vagina 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 ruled out Present on admission UTI ruled out with a urine culture negative A recent laparoscopic cholecystectomy July 25 Anemia of chronic illness with no evidence of a GI bleed Postop Diverging sigmoid colostomy for Colovaginal fistula Plan Continue postop surgical care Start ostomy teaching and ostomy care Cleared liquid diet advance as tolerated PT OT eval IV hydration DVT and GI prophylaxis Repeat labs in the morning continue IV Zosyn as ordered The above impression and plan of care have been discussed and directed by signing physician. Aysha Dorsey nurse practitioner acting as scribe for signing physician.
[2017-08-06] MEDS ORDERED: HYDROmorphone 4 MG TABLET PO PRN (17:18)
--- NOTE | 2017-08-06 20:58 | PN ---
PROGRESS NOTE DATE OF SERVICE: 08/06/2017 This 77-year-old woman who was admitted with a colovaginal fistula had a diverting colostomy. The patient also has UTI and sepsis. The patient is also slightly confused and p.o. intake appears to be poor at this time. No chest pain. No palpitations. No fever. On exam, pulse 98, blood pressure 149/60, respiration 16, temperature 97.9, pulse ox 98% on 2 L. HEENT: Conjunctivae normal. Oral mucosa moist. NECK: No jugular venous distention. CARDIOVASCULAR SYSTEM: S1, S2 muffled. RESPIRATORY SYSTEM: Breath sounds diminished at the bases. A few scattered rhonchi. ABDOMEN: Soft, status post surgery and diverting colostomy. LEGS: No edema. No swelling. NERVOUS SYSTEM: Diffusely weak. LABS: WBC 10.6, hemoglobin 9. Sodium 135. ASSESSMENT: 1. Status post diverting sigmoid colostomy for colovaginal fistula. 2. Acute urinary tract infection with sepsis, present on admission. 3. Increased white count. 4. Hypokalemia. 5. Anemia, normocytic. 6. Hyponatremia. 7. Increased AST, ALT. 8. History of recent laparoscopic cholecystectomy for acute on chronic cholecystitis. 9. History of dementia, cognitive impairment. 10.History of rectal cancer with chemotherapy and radiation. 11.History of medical debility. 12.Gait dysfunction. RECOMMENDATIONS AND DISCUSSION: I recommend to continue current medication, continue symptomatic treatment. Monitor closely. Otherwise I would recommend closely following with Surgery. Advance diet per Surgery. Once the patient is stabilized, ECF rehab. Postoperatively, wound appears to be healthy. MMODL / IJN: [id number] /
[2017-08-06] MEDS: MIRTAZAPINE 15 MG TAB PO SCH (22:22)
--- NOTE | 2017-08-06 22:49 | PN ---
PROGRESS NOTE DATE OF SERVICE: 08/06/2017. REASON FOR FOLLOWUP: Complicated diverticulitis with colorectal fistula. INTERVAL HISTORY: The patient is afebrile. She has been more awake, alert. She is breathing comfortably, denies having any chest pain, cough, abdominal pain is currently controlled. No nausea or vomiting. EXAMINATION: Blood pressure 149/60 with a pulse of 98, temperature 97.9. She is 98% on 2 L nasal cannula. General description is an elderly female lying in bed in no distress. Respiratory system unlabored breathing, clear to auscultation anteriorly. Heart S1, S2 regular rate and rhythm. Abdomen soft, minimally tender right lower quadrant area. LABS: Hemoglobin 9 with white count of 10.6, BUN of 8, creatinine 0.66. DIAGNOSTIC IMPRESSION AND PLAN: Patient with a complicated colorectal fistula, status post diverting colostomy. Currently on Zosyn that will continue hopefully to finish therapy with oral antibiotics. Continue supportive care. MMODL / IJN: [id number] /
[2017-08-07] MEDS: D5-0.45% NACL WITH KCL 20MEQ/L 1,000 ML IV SCH ×2 (01:31→23:51)
[2017-08-07] MEDS: LACTATED RINGERS 1,000 ML IV SCH (04:33)
[2017-08-07] MEDS: LEVOTHYROXINE 25 MCG TAB PO SCH (06:09)
[2017-08-07 08:27] LABS: Anion Gap 7 mmol/L; Calcium 7.9 mg/dL (8.4-10.2); Carbon Dioxide 27 mmol/L (22-30); Chloride 102 mmol/L (98-107); Glucose 108 mg/dL (74-99); Sodium 136 mmol/L (137-145)
[2017-08-07 08:28] LABS: Blood Urea Nitrogen 7 mg/dL (7-17); Potassium 4.3 mmol/L (3.5-5.1)
[2017-08-07 08:40] LABS: Basophils # (A) 0.1 k/uL (0-0.2); Basophils % (A) 1 %; Eosinophils # (A) 0.2 k/uL (0-0.7); Eosinophils % (A) 1 %; HCT 27.1 % (34.0-46.0); HGB 8.6 gm/dL (11.4-16.0); Hypochromasia Marked; Lymphocytes # (A) 0.6 k/uL (1.0-4.8); Lymphocytes % (A) 5 %; MCH 29.4 pg (25.0-35.0); MCHC 31.7 g/dL (31.0-37.0); MCV 92.8 fL (80.0-100.0); Mean Platelet Volume 6.7; Monocytes # (A) 0.4 k/uL (0-1.0); Monocytes % (A) 3 %; Neutrophils # (A) 10.7 k/uL (1.3-7.7); Neutrophils % (A) 88 %; Platelet Count 353 k/uL (150-450); Poikilocytosis Slight; RBC 2.92 m/uL (3.80-5.40); RDW 15.9 % (11.5-15.5); WBC 12.1 k/uL (3.8-10.6)
[2017-08-07] MEDS: PIPERACILLIN-TAZOBACTAM 3.375 GM in DEXTROSE/WATER 1 50ML.BAG IVPB SCH ×2 (08:53→18:14)
[2017-08-07] MEDS: FAMOTIDINE 20 MG TAB PO SCH ×2 (08:53→20:39)
[2017-08-07] MEDS: HEPARIN SODIUM,PORCINE 5,000 UNIT/ML 1 ML VIAL SQ SCH ×2 (08:53→20:39)
--- NOTE | 2017-08-07 11:16 | CT ---
EXAMINATION TYPE: CT abdomen pelvis wo con DATE OF EXAM: 08/07/2017 COMPARISON: 08/01/2017 INDICATION: Fistula, sepsis, UTI DLP: 296.30 mGycm, Automated exposure control for dose reduction was used. CONTRAST: 0 mL of Omnipaque 350. Study performed without Oral Contrast TECHNIQUE: Axial images were obtained from above the diaphragm to the pubic rami in the axial plane a t 5 mm thick sections. Reconstructed images are reviewed on the computer in the coronal plane. FINDINGS: Limited CT sections are obtained the lung bases. Small bilateral pleural effusions have developed. T here is some compressive atelectasis at the left lung base. Minimal compressive atelectasis may be at the right lung base. Note is made of coronary artery calcification.. CT ABDOMEN: Liver: Normal Spleen: Normal Pancreas: Normal Adrenal glands: The adrenal glands are normal. Gallbladder: Surgically absent Kidneys: No masses are evident. There is mild to moderate right hydronephrosis and hydroureter. [place] ureter extends to at least the mid pelvis. An obstructing stone or extrinsic abnormality to account f or the hydronephrosis is not identified. No cysts are present. Aorta: Vascular calcification is within the aorta. Inferior vena cava: Normal. CT PELVIS: Contrast is within the colon. Small bowel loops are prominent and contain fluid. No contrast is withi n the small bowel loops. There is an ostomy in the left lower quadrant. Appendix: Normal as visualized. Urinary bladder: Decompressed with a catheter. A large amount of air is present. Wall thickening [place] ot be excluded. However this is limited due to decompression. Genitourinary structures: Uterus and ovaries are not identified. Osseous structures: No suspicious lytic or sclerotic lesions. May be a spondylolysis of L5. Facet deg enerative changes are present. IMPRESSIONS: 1. Interval development of small bilateral pleural effusions. 2. Mild compressive atelectasis predominantly at the left base adjacent to the pleural effusion. 3. There appears to be a thickened urinary bladder wall with a Spear catheter decompressing the struc ture. This has limited evaluation. 4. Mild to moderate right hydronephrosis and hydroureter. Distal ureteral obstruction etiologies not identified.
--- NOTE | 2017-08-07 12:17 | P.PN ---
Subjective Progress Note Date: 08/07/17 77-year-old female seen and examined at bedside. Pleasant awake oriented to self and place. Patient reportedly is experiencing pain and tenderness left lower quadrant. With light palpitation to the abdominal wall left lower quadrant patient tells out it hurts" Ostomy no stool in the ostomy bag stoma pink not edematous. No further episodes of stooling rectally or vaginally noted. Less suprapubic edema noted. Nursing reports patient has had poor oral intake reluctant to eat no nausea no vomiting August 05 diverging sigmoid colostomy for colovaginal fistula Objective - Vital Signs Vital signs: Vital Signs Temp 97.6 F 08/07/17 07:40 Pulse 93 08/07/17 07:40 Resp 16 08/07/17 07:40 BP 140/63 08/07/17 07:40 Pulse Ox 96 08/07/17 07:40 Intake & Output 08/06/17 08/07/17 08/07/17 18:59 06:59 18:59 Output Total 800 Balance -800 Weight 50.349 kg Output: Urine 800 Uretheral (Spear) 800 Other: Voiding Method Indwelling Catheter Indwelling Catheter - Exam Physical exam 77-year-old female looking older than stated age awake oriented to self Lungs adequate air movement Heart S1-S2 audible regular Abdomen soft nondistended mild tenderness to the left lower quadrant stoma pink ostomy left lower quadrant no stool indwelling Spear catheter in place less suprapubic edema noted no edema to the labia skin excoriation noted around the rectum Extremities no heel breakdown no edema - Labs CBC & Chem 7: 08/07/17 07:48 08/07/17 07:48 Labs: Abnormal Lab Results - Last 24 Hours (Table) 08/07/17 08/07/17 Range/Units 07:48 07:48 WBC 12.1 H (3.8-10.6) k/uL RBC 2.92 L (3.80-5.40) m/uL Hgb 8.6 L (11.4-16.0) gm/dL Hct 27.1 L (34.0-46.0) % RDW 15.9 H (11.5-15.5) % Neutrophils # 10.7 H (1.3-7.7) k/uL Lymphocytes # 0.6 L (1.0-4.8) k/uL Sodium 136 L (137-145) mmol/L Glucose 108 H (74-99) mg/dL Calcium 7.9 L (8.4-10.2) mg/dL Microbiology - Last 24 Hours (Table) 08/01/17 19:09 Blood Culture - Preliminary Blood No Growth after 120 hours Assessment and Plan Assessment: Impression Dementia with no behavior disturbance Right-sided hydronephrosis History of rectal cancer status post chemo and radiation treatment Present on admission possible stool from vagina 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 ruled out Present on admission UTI ruled out with a urine culture negative A recent laparoscopic cholecystectomy July 25 Anemia of chronic illness with no evidence of a GI bleed Postop Diverging sigmoid colostomy for Colovaginal fistula Computed tomography scan abdomen pelvis without contrast done on August 07 show mild to moderate right hydronephrosis Plan Continue postop surgical care Start ostomy teaching and ostomy care Cleared liquid diet advance as tolerated PT OT eval IV hydration DVT and GI prophylaxis Repeat labs in the morning continue IV Zosyn as ordered Consult dietitian recommendations nutritional support supplements The above impression and plan of care have been discussed and directed by signing physician. Aysha Dorsey nurse practitioner acting as scribe for signing physician.
--- NOTE | 2017-08-07 15:24 | XR ---
EXAMINATION TYPE: XR chest 1V portable DATE OF EXAM: 08/07/2017 COMPARISON: 07/27/2017 HISTORY: Shortness of breath TECHNIQUE: Single frontal view of the chest is obtained. FINDINGS: Subsegmental left lower lobe infiltrate. Hyperinflation suggests COPD. Atherosclerotic sulaiman nge aorta. Diffuse osteopenia and arthropathy of the shoulders. No overt failure. IMPRESSION: 1. COPD with left lower lobe infiltrate and tiny pleural effusion.
--- NOTE | 2017-08-07 16:08 | PN ---
PROGRESS NOTE DATE OF SERVICE: 08/07/2017 This 77-year-old woman was admitted after diverting sigmoid colostomy had some stools from the vagina from the fistulous site. Otherwise the colostomy has no output at this time. The patient is complaining of abdominal discomfort also. Abdominal pelvis CAT scan was done which showed small bilateral pleural effusions and mild compressive atelectasis and cystitis with possible Spear catheter also. The patient is closely monitored. No chest pain. No palpitations. EXAM: The patient is conscious, confused. Pulse 93, blood pressure 140/63, respirations 16, temperature 97.2, pulse ox 98% on room air. HEENT: Conjunctivae normal. Oral mucosa moist. NECK: No jugular venous distention. No carotid bruit. No lymph node enlargement. CARDIOVASCULAR: S1, S2. No S3, no S4. RESPIRATORY: Breath sounds diminished in the bases. No rhonchi. No crackles. ABDOMEN: Soft, status post surgery. Colostomy present. Mild diffuse discomfort on palpation. No guarding. No rigidity. LEGS: No edema. NERVOUS SYSTEM: No focal deficits. LABS: WBC 12.2, hemoglobin is 8.6, sodium 136. ASSESSMENT: 1. Status post diverting sigmoid colostomy with colovaginal fistula. 2. Acute urinary tract infection with sepsis present on admission. 3. Increased WBC. 4. Hypokalemia. 5. Anemia normocytic. 6. Hyponatremia. 7. Increased AST, ALT. 8. History of recent laparoscopic cholecystectomy for acute on chronic cholecystitis. 9. History of dementia, cognitive impairment. 10.History of rectal cancer with chemotherapy and radiation. 11.History of medical debility. 12.History gait dysfunction. RECOMMENDATIONS AND DISCUSSION: I recommend to continue current medications, monitor, symptomatic treatment at this time. I would also recommend a chest x-ray for further evaluation and portable chest x- ray will be ordered to rule out the possibility of any CHF. Continue rest of medications and closely follow with surgery. The prognosis extremely guarded because of multiple complex medical issues. DVT prophylaxis. Broad-spectrum IV antibiotics. Further recommendations to follow. Also the cultures are negative so far. MMODL / IJN: [id number] /
[2017-08-07] MEDS: MIRTAZAPINE 15 MG TAB PO SCH (20:39)
--- NOTE | 2017-08-07 23:32 | PN ---
PROGRESS NOTE DATE OF SERVICE: 08/07/2017 REASON FOR FOLLOW UP: Complicated diverticulitis with colorectal fistula. INTERVAL HISTORY: The patient is afebrile. She is breathing comfortably. She was complaining of more abdominal pain around her ostomy site for which a CT of abdomen and pelvis has been done, which shows some pleural effusion urinary bladder. The patient denies any nausea or any vomiting . EXAMINATION: Blood pressure is 133/69 with a pulse of 95, temperature 97.8. She is 98% on room air. General description is an elderly female lying in bed in no distress. RESPIRATORY SYSTEM: Unlabored breathing, clear to auscultation anteriorly. HEART: S1, S2. Regular rate and rhythm. ABDOMEN: Soft, very minimal tenderness. No guarding, no rigidity. EXTREMITIES: No edema of feet. LABS: Hemoglobin 8.6, white count of 12.5 with a BUN of 7, creatinine 0.60. DIAGNOSTIC IMPRESSION AND PLAN: Patient with complicated diverticulitis with colorectal fistula, status post diverting colostomy. Repeat CT is showing hydronephrosis that needs to be evaluated by Urology. We will keep the patient on Zosyn at this point. Continue supportive care. MMODL / IJN: [id number] /
[2017-08-08] MEDS: PIPERACILLIN-TAZOBACTAM 3.375 GM in DEXTROSE/WATER 1 50ML.BAG IVPB SCH ×4 (00:17→23:53)
[2017-08-08] MEDS: LEVOTHYROXINE 25 MCG TAB PO SCH (06:12)
[2017-08-08] MEDS: D5-0.45% NACL WITH KCL 20MEQ/L 1,000 ML IV SCH (06:18)
[2017-08-08] MEDS: FAMOTIDINE 20 MG TAB PO SCH ×2 (07:38→20:17)
[2017-08-08] MEDS: HEPARIN SODIUM,PORCINE 5,000 UNIT/ML 1 ML VIAL SQ SCH ×2 (10:31→20:16)
--- NOTE | 2017-08-08 11:15 | P.PN ---
<Aysha Dorsey - Last Filed: 08/08/17 10:40> Subjective Progress Note Date: 08/08/17 77-year-old female seen and examined at bedside more awake and alert this morning. No stool from ostomy noted. Scheduled today for PICC line start TPN for nutritional support. Nursing reports patient continues to refuse to eat has poor caloric intake no labs pending afebrile. The discharge plan in progress PT AYUSH rey reportedly takes the assist of 2 to transfer patient from bed to chair No further episodes of stooling from the vagina or rectum August 05 diverging sigmoid colostomy for colovaginal fistula Objective - Vital Signs Vital signs: Vital Signs Temp 97.2 F L 08/08/17 08:21 Pulse 64 08/08/17 08:21 Resp 16 08/08/17 08:21 BP 122/68 08/08/17 08:21 Pulse Ox 97 08/08/17 08:21 Intake & Output 08/07/17 08/08/17 08/08/17 18:59 06:59 18:59 Intake Total 150 Output Total 800 400 Balance 150 -800 -400 Weight 50.349 kg 50.349 kg 50.349 kg Intake: Oral 150 Output: Urine 800 400 Uretheral (Spear) 800 400 Other: Voiding Method Indwelling Catheter Indwelling Catheter Indwelling Catheter # Bowel Movements 1 - Exam Physical exam 77-year-old female looking older than stated age more alert awake oriented to self Lungs adequate air movement Heart S1-S2 audible regular Abdomen soft nondistended mild tenderness to the left lower quadrant stoma pink ostomy left lower quadrant no stool indwelling Spear catheter in place less suprapubic edema noted no edema to the labia skin excoriation noted around the rectum Extremities no heel breakdown no edema - Labs CBC & Chem 7: 08/07/17 07:48 08/07/17 07:48 Labs: Microbiology - Last 24 Hours (Table) 08/01/17 19:09 Blood Culture - Final Blood No Growth after 144 hours Assessment and Plan Assessment: Impression Dementia with no behavior disturbance Right-sided hydronephrosis History of rectal cancer status post chemo and radiation treatment Present on admission possible stool from vagina 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 ruled out Present on admission UTI ruled out with a urine culture negative A recent laparoscopic cholecystectomy July 25 Anemia of chronic illness with no evidence of a GI bleed Postop Diverging sigmoid colostomy for Colovaginal fistula Computed tomography scan abdomen pelvis without contrast done on August 07 show mild to moderate right hydronephrosis Plan start tpn for nutritional supplements Continue postop surgical care Start ostomy teaching and ostomy care Cleared liquid diet advance as tolerated PT OT eval IV hydration DVT and GI prophylaxis Repeat labs in the morning continue IV Zosyn as ordered dietitian recommendations Dictating a progress note for Dr. Elizabeth rounding on behalf of dr caruso The above impression and plan of care have been discussed and directed by signing physician. Aysha Dorsey nurse practitioner acting as scribe for signing physician. <Bennett Elizabeth - Last Filed: 08/08/17 17:08> Objective - Vital Signs Vital signs: Vital Signs Temp 98.3 F 08/08/17 15:44 Pulse 102 H 08/08/17 15:44 Resp 16 08/08/17 15:44 BP 125/77 08/08/17 15:44 Pulse Ox 100 08/08/17 15:44 Intake & Output 08/07/17 08/08/17 08/08/17 18:59 06:59 18:59 Intake Total 150 Output Total 800 1400 Balance 150 -800 -1400 Weight 50.349 kg 50.349 kg 50.349 kg Intake: Oral 150 Output: Urine 800 1400 Uretheral (Spear) 800 600 Other: Voiding Method Indwelling Catheter Indwelling Catheter Indwelling Catheter # Voids 2 # Bowel Movements 1 - Labs CBC & Chem 7: 08/07/17 07:48 08/08/17 12:05 Labs: Abnormal Lab Results - Last 24 Hours (Table) 08/08/17 Range/Units 12:05 Sodium 135 L (137-145) mmol/L Glucose 117 H (74-99) mg/dL Total Protein 5.7 L (6.3-8.2) g/dL Albumin 2.5 L (3.5-5.0) g/dL Triglycerides 189 H (<150) mg/dL Microbiology - Last 24 Hours (Table) 08/01/17 19:09 Blood Culture - Final Blood No Growth after 144 hours Assessment and Plan Assessment: As above. Patient has no complaints of pain. No ostomy function however. Denies nausea or vomiting. She was having some stools from the vagina earlier today. TPN has been started. I would continue clear liquids for now. Continue antibiotics as well. Gradually increase activity.
--- NOTE | 2017-08-08 11:52 | IR ---
EXAMINATION TYPE: IR cvc insert >=5 years DATE OF EXAM: 08/08/2017 COMPARISON: NONE CLINICAL HISTORY: Needs long-term intravenous access for total parenteral nutrition PROCEDURE: After informed consent, the skin overlying the left brachial vein was localized with ultrasound and n oted to be compressible and patent. An ultrasound image was obtained and submitted on the patient's chart. The overlying skin was prepped and draped and Lidocaine was used for local anesthesia. A ski n crystal was made with a scalpel. Access was gained to the vein under ultrasound guidance with a 21 ga uge needle and a 0.018 inch wire was advanced. Access site was dilated with Peel-Away sheath and cat heter tailored to the appropriate length and advanced such that the distal tip is at the cavoatrial j unction. Spot image was obtained verifying placement. Catheter was fixed to the skin and a sterile dressing was placed following hemostasis. Catheter was aspirated and flushed with saline. Patient w as discharged in stable condition without complication. Maximal barrier technique is utilized. Ultra sound image is documented on the chart. Ultrasound used with sterile technique. Fluoro time and fluoroscopic images submitted to document procedure: 18 images, 0.1 minutes fluorosco py time IMPRESSION: STATUS POST ULTRASOUND AND FLUOROSCOPIC GUIDED PICC LINE PLACEMENT, READY FOR USE. THIS PROCEDURE WAS PERFORMED BY THE UNDERSIGNED.
[2017-08-08 12:57] LABS: ALT 32 U/L (9-52); AST 28 U/L (14-36); Albumin 2.5 g/dL (3.5-5.0); Alkaline Phosphatase 114 U/L (38-126); Anion Gap 8 mmol/L; Blood Urea Nitrogen 8 mg/dL (7-17); Calcium 8.4 mg/dL (8.4-10.2); Carbon Dioxide 28 mmol/L (22-30); Chloride 99 mmol/L (98-107); Glucose 117 mg/dL (74-99); Magnesium 1.7 mg/dL (1.6-2.3); Potassium 4.1 mmol/L (3.5-5.1); Sodium 135 mmol/L (137-145); Total Bilirubin 0.5 mg/dL (0.2-1.3); Total Protein 5.7 g/dL (6.3-8.2); Triglycerides 189 mg/dL (<150)
[2017-08-08 13:02] LABS: Ionized Calcium 4.9 mg/dL (4.5-5.3)
--- NOTE | 2017-08-08 16:21 | PN ---
PROGRESS NOTE DATE OF SERVICE: 08/08/2017. REASON FOR FOLLOW UP: Complicated diverticulitis with colorectal fistula. INTERVAL HISTORY: The patient is afebrile. She is breathing comfortably. Oral intake remains to be poor. No clear history of any nausea, vomiting. No output in the colostomy bag so far. EXAMINATION: Blood pressure 125/77 with a pulse of 102, temperature 98.3. She is 100% 2 L nasal cannula. General description is an elderly female lying in bed in no distress. RESPIRATORY SYSTEM: Unlabored breathing. Clear to auscultation anteriorly. HEART: S1, S2. Regular rate and rhythm. ABDOMEN: Soft, no tenderness. LABS: Hemoglobin 8.6, white count 12.5 yesterday. CBC was not repeated today. Creatinine 0.68. DIAGNOSTIC IMPRESSION AND PLAN: Patient with complicated diverticulitis and colorectal fistula status post diverting colostomy. Repeat CT yesterday did not show any complicated abscess formation. She will continue Zosyn at this point over the weekend and depending on her clinical response, will adjust antibiotic further. Continue supportive care. MMODL / IJN: [id number] /
[2017-08-08] MEDS: MVI, ADULT NO.4 WITH VIT K 10 ML, TRACE (CONC-1ML/DOSE) 1 ML in AMIN 3.3%/DEX 9.8%/LIPI... IV SCH ×3 (16:39)
[2017-08-08 17:37] LABS: Glucose,Whole Blood 160 mg/dL (75-99)
[2017-08-08] MEDS: INSULIN ASPART 100 UNIT/ML 1 ML 10 ML VIAL SQ SCH (17:41)
[2017-08-08 19:35] LABS: Hemoglobin A1C 5.4 % (4.0-6.0)
--- NOTE | 2017-08-08 19:45 | PN ---
PROGRESS NOTE DATE OF SERVICE: 08/08/2017 Patient is sitting up in bed, nods yes or no in answer to questions. VITAL SIGNS: Temperature 97.2, pulse 64, respiration 16, blood pressure 122/68, oxygen saturation 97%. HEENT: Atraumatic, normocephalic. Pupils equal and reactive to light. Extraocular movements intact. Buccal mucosa fair. Neck is supple. No goiter, lymphadenopathy. JVD is negative. No carotid bruit heard. Lungs are clear to auscultate. No rales, rhonchi, wheezes. Heart is regular rate and rhythm without any murmurs, gallop rhythm. Abdomen is soft and nondistended. Patient has mild diffuse tenderness, more so in left lower quadrant. Stoma is pink but no stool in there. EXTREMITIES: No edema, clubbing or cyanosis. NEUROLOGICAL EXAMINATION: Cranial nerves 2-12 grossly intact. No gross motor or sensory deficit. LABS: CBC: White blood of 12.1, hemoglobin 8.6, hematocrit 37.1 and platelet count of 353. Chemical profile: Sodium 136, potassium 4.3, chloride 102, bicarb 27, BUN 7, creatinine 0.6, glucose 108. ASSESSMENT: 1. Status post diverting sigmoid colostomy for colovaginal fistula. 2. Acute urinary tract infection with sepsis. 3. Hypokalemia. 4. Normocytic anemia. 5. Hyponatremia. 6. Elevated transaminases. PLAN: To continue with the current management. Patient is started on TPN for nutritional support. Postoperative surgical care per surgery recommendations. Ostomy care and teaching is recommended. Patient is started on clear liquid diet and plan to advance as tolerated. Continue with PT, OT evaluation. Continue with IV Zosyn. Further recommendations pending clinical course. MMODL / IJN: [id number] /
[2017-08-08] MEDS: MIRTAZAPINE 15 MG TAB PO SCH (20:16)
[2017-08-08 23:58] LABS: Glucose,Whole Blood 152 mg/dL (75-99)
[2017-08-09] MEDS: INSULIN ASPART 100 UNIT/ML 1 ML 10 ML VIAL SQ SCH ×4 (00:08→17:20)
[2017-08-09] MEDS: D5-0.45% NACL WITH KCL 20MEQ/L 1,000 ML IV SCH (03:55)
[2017-08-09] MEDS: LEVOTHYROXINE 25 MCG TAB PO SCH (06:16)
[2017-08-09 06:21] LABS: Glucose,Whole Blood 154 mg/dL (75-99)
[2017-08-09 07:33] LABS: Ionized Calcium 4.9 mg/dL (4.5-5.3)
[2017-08-09 08:37] LABS: Anion Gap 7 mmol/L; Blood Urea Nitrogen 12 mg/dL (7-17); Calcium 7.9 mg/dL (8.4-10.2); Carbon Dioxide 28 mmol/L (22-30); Chloride 101 mmol/L (98-107); Glucose 151 mg/dL (74-99); Magnesium 1.9 mg/dL (1.6-2.3); Phosphorus 2.8 mg/dL (2.5-4.5); Potassium 3.5 mmol/L (3.5-5.1); Sodium 136 mmol/L (137-145)
[2017-08-09] MEDS: PIPERACILLIN-TAZOBACTAM 3.375 GM in DEXTROSE/WATER 1 50ML.BAG IVPB SCH ×2 (08:39→16:51)
[2017-08-09] MEDS: FAMOTIDINE 20 MG TAB PO SCH ×2 (08:40→20:38)
[2017-08-09] MEDS: HEPARIN SODIUM,PORCINE 5,000 UNIT/ML 1 ML VIAL SQ SCH ×2 (08:40→20:38)
[2017-08-09] MEDS ORDERED: POTASSIUM CHLORIDE 20 MEQ in SODIUM CHLORIDE 0.9% 100 ML IV ONE (10:00)
--- NOTE | 2017-08-09 11:46 | P.PN ---
Subjective Progress Note Date: 08/09/17 Patient is a 77-year-old white female who is lethargic in bed at this time. 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 She has not had any stool at this time from her ostomy. Patient has poor caloric intake. Reports continued stooling from the vagina. Objective - Vital Signs Vital signs: Vital Signs Temp 98.8 F 08/09/17 08:26 Pulse 103 H 08/09/17 08:26 Resp 16 08/09/17 08:26 BP 119/70 08/09/17 08:26 Pulse Ox 99 08/09/17 08:26 Intake & Output 08/08/17 08/09/17 08/09/17 18:59 06:59 18:59 Output Total 1400 800 300 Balance -1400 -800 -300 Weight 50.349 kg 50.4 kg Output: Urine 1400 800 300 Uretheral (Spear) 600 Other: Voiding Method Indwelling Catheter Indwelling Catheter Indwelling Catheter # Voids 2 2 0 - Constitutional General appearance: Present: thin - Respiratory Details: Decreased breath sounds at the bases - Cardiovascular Heart sounds: normal: S1, S2 - Psychiatric Psychiatric Comment(s): Lethargic - Labs CBC & Chem 7: 08/07/17 07:48 08/09/17 07:09 Labs: Abnormal Lab Results - Last 24 Hours (Table) 08/08/17 08/08/17 08/08/17 Range/Units 12:05 17:35 23:55 Sodium 135 L (137-145) mmol/L Glucose 117 H (74-99) mg/dL POC Glucose (mg/dL) 160 H 152 H (75-99) mg/dL Calcium (8.4-10.2) mg/dL Total Protein 5.7 L (6.3-8.2) g/dL Albumin 2.5 L (3.5-5.0) g/dL Triglycerides 189 H (<150) mg/dL 08/09/17 08/09/17 Range/Units 06:07 07:09 Sodium 136 L (137-145) mmol/L Glucose 151 H (74-99) mg/dL POC Glucose (mg/dL) 154 H (75-99) mg/dL Calcium 7.9 L (8.4-10.2) mg/dL Total Protein (6.3-8.2) g/dL Albumin (3.5-5.0) g/dL Triglycerides (<150) mg/dL Assessment and Plan Assessment: Impression/plan: Postoperative 6 from diverting colostomy 2. Poor oral intake/PICC line placed under ultrasound and fluoroscopic guidance on 08/08/2017 Plan: 1. Continue present therapy 2. Hyperalimentation as per PICC line
[2017-08-09 12:03] LABS: Glucose,Whole Blood 143 mg/dL (75-99)
[2017-08-09 17:19] LABS: Glucose,Whole Blood 114 mg/dL (75-99)
--- NOTE | 2017-08-09 18:07 | PN ---
PROGRESS NOTE DATE OF SERVICE: 08/09/2017 Patient is seen in the room. She is sleepy, somewhat weaker. Patient had a diverting colostomy done on 08/05/2017 for a colovaginal fistula. No stool from the ostomy. VITAL SIGNS: Temperature 98.8, pulse 103, respirations 16, blood pressure 119/70, O2 saturation 99%. HEENT: Atraumatic, normocephalic. Pupils equal and reactive to light. Extraocular movements intact. Buccal mucosa is fair. Neck is supple. No goiter, lymphadenopathy. JVD is negative. No carotid bruit heard. LUNGS: Decreased breath sounds. No rales, rhonchi or wheezes. Heart is regular rate and rhythm without any murmurs, gallop rhythm. Abdomen is soft. Mild diffuse tenderness, more so on the left side. Stoma is pink, but has no stool. EXTREMITIES: No edema, clubbing or cyanosis. NEUROLOGICAL: Patient is awake and alert, in no gross motor or sensory deficit. LABS: CBC: White blood count 12.1, hemoglobin 8.6, hematocrit 27.1 and platelet count of 353. Chemical profile: Sodium 136, potassium 3.5, chloride 101, bicarb 28, BUN 12, creatinine 0.62, glucose 151. ASSESSMENT: 1. Status post diverting sigmoid colostomy for colovaginal fistula. 2. Urinary tract infection with sepsis. 3. Hypokalemia. 4. Normocytic anemia. 5. Hyponatremia. 6. Elevated transaminases. Plan is to continue current management. Patient is started on TPN for nutritional support. Postoperative surgical care per their recommendation. Ostomy care and teaching is recommended. Patient is to continue with PT, OT. Further recommendations pending clinical course. MMODL / IJN: [id number] /
[2017-08-09] MEDS: MVI, ADULT NO.4 WITH VIT K 10 ML, TRACE (CONC-1ML/DOSE) 1 ML in AMIN 3.3%/DEX 9.8%/LIPI... IV SCH ×3 (18:13)
[2017-08-09] MEDS: MIRTAZAPINE 15 MG TAB PO SCH (20:38)
[2017-08-10] MEDS: INSULIN ASPART 100 UNIT/ML 1 ML 10 ML VIAL SQ SCH ×4 (00:02→20:03)
[2017-08-10] MEDS: PIPERACILLIN-TAZOBACTAM 3.375 GM in DEXTROSE/WATER 1 50ML.BAG IVPB SCH ×3 (00:03→16:11)
[2017-08-10 00:19] LABS: Glucose,Whole Blood 133 mg/dL (75-99)
[2017-08-10] MEDS: LEVOTHYROXINE 25 MCG TAB PO SCH (06:25)
[2017-08-10] MEDS: FAMOTIDINE 20 MG TAB PO SCH ×2 (08:34→20:20)
[2017-08-10] MEDS: HEPARIN SODIUM,PORCINE 5,000 UNIT/ML 1 ML VIAL SQ SCH ×2 (08:34→20:20)
[2017-08-10] MEDS: D5-0.45% NACL WITH KCL 20MEQ/L 1,000 ML IV SCH (08:34)
[2017-08-10 08:59] LABS: Anion Gap 7 mmol/L; Blood Urea Nitrogen 16 mg/dL (7-17); Calcium 7.4 mg/dL (8.4-10.2); Carbon Dioxide 27 mmol/L (22-30); Chloride 102 mmol/L (98-107); Glucose 122 mg/dL (74-99); Magnesium 2.1 mg/dL (1.6-2.3); Phosphorus 3.1 mg/dL (2.5-4.5); Sodium 136 mmol/L (137-145)
[2017-08-10 09:02] LABS: Ionized Calcium 4.8 mg/dL (4.5-5.3)
[2017-08-10 11:18] LABS: Glucose,Whole Blood 118 mg/dL (75-99)
--- NOTE | 2017-08-10 12:01 | P.PN ---
Subjective Progress Note Date: 08/10/17 Patient is a 77-year-old white female who is lethargic in bed at this time. 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 She has passed stool in her ostomy. Patient has poor caloric intake. Reports continued stooling from the vagina. She is presently receiving hyperalimentation. Objective - Vital Signs Vital signs: Vital Signs Temp 97.6 F 08/10/17 07:33 Pulse 97 08/10/17 07:33 Resp 16 08/10/17 07:33 BP 137/71 08/10/17 07:33 Pulse Ox 100 08/10/17 07:33 Intake & Output 08/09/17 08/10/17 08/10/17 17:59 06:59 18:59 Intake Total Output Total 300 Balance -300 Weight 50 kg Intake: Intake, IV Titration Amount Mvi, Adult No.4 with Vit K 10 ml Trace (Conc-1Ml/ Dose) 1 ml In Brian 3.3%/ Dex 9.8%/Lipid/Lytes 1, 540 ml @ 64 mls/hr IV . Q24H [facility] Rx#:[id number] Output: Urine 300 Uretheral (Spear) Other: Voiding Method # Voids 0 - Constitutional General appearance: Present: thin - Respiratory Respiratory: bilateral: diminished - Cardiovascular Rhythm: regular Heart sounds: normal: S1, S2 - Gastrointestinal Gastrointestinal Comment(s): Ostomy pink, bag is changed secondary to stooling General gastrointestinal: Present: decreased bowel sounds, soft - Labs CBC & Chem 7: 08/07/17 07:48 08/10/17 08:08 Labs: Abnormal Lab Results - Last 24 Hours (Table) 08/09/17 08/09/17 08/09/17 Range/Units 11:48 17:16 23:59 Sodium (137-145) mmol/L Glucose (74-99) mg/dL POC Glucose (mg/dL) 143 H 114 H 133 H (75-99) mg/dL Calcium (8.4-10.2) mg/dL 08/10/17 08/10/17 Range/Units 08:08 11:12 Sodium 136 L (137-145) mmol/L Glucose 122 H (74-99) mg/dL POC Glucose (mg/dL) 118 H (75-99) mg/dL Calcium 7.4 L (8.4-10.2) mg/dL Assessment and Plan Assessment: Impression/plan: Postoperative from diverting colostomy done for colovaginal fistula 2. Poor oral intake/PICC line placed under ultrasound and fluoroscopic guidance on 08/08/2017 Plan: 1. Continue present therapy 2. Hyperalimentation as per PICC line 3. Ostomy functioning advance diet
--- NOTE | 2017-08-10 17:29 | PN ---
PROGRESS NOTE DATE OF SERVICE: 08/10/17 The patient is a 77-year-old female patient status post diverting colostomy on 08/05/2017 for a colovaginal fistula. The patient's grandson is at the bedside and has multiple questions which were all answered to his satisfaction. VITAL SIGNS: Temperature 97.6, pulse 97, respirations 16, blood pressure 137/71, O2 saturation 100%. GENERAL EXAMINATION: Patient is thin and in no acute distress. HEENT: Atraumatic, normocephalic. Pupils equal and reactive to light. Extraocular movements intact. Buccal mucosa is fair. NECK: Supple. No goiter, lymphadenopathy. JVD is negative. No carotid bruit heard. LUNGS: Decreased breath sounds. Clear to auscultate. No rales, rhonchi, or wheezes. Heart is regular rate and rhythm without any murmurs or gallop rhythm. ABDOMEN: Soft. Positive mild diffuse tenderness. The patient's ostomy is intact. She did have stool through the ostomy today. Bowel sounds are positive. EXTREMITIES: No edema, clubbing cyanosis. NEUROLOGICAL EXAMINATION: Patient is awake and alert. She has no gross motor or sensory deficit. Skin is warm, dry and intact. LAB: CBC: White blood count 12.1, hemoglobin 8.6, hematocrit 27.9, and platelet count of 353. Chemical profile: Sodium 136, potassium 4.0, chloride 102, bicarb 27, BUN 16, creatinine 0.59, glucose 122. ASSESSMENT: 1. Status post diverting sigmoid colostomy for colovaginal fistula. 2. Urinary tract infection with sepsis. 3. Hypokalemia. 4. Normocytic anemia. 5. Hyponatremia. 6. Elevated transaminases. 7. Malnutrition, moderate to severe protein calorie malnutrition. The patient is started on TPN. She is tolerating it well. Surgical service is managing that. The patient's ostomy is functioning. Ostomy care and teaching via is provided. Plan is to proceed with PT, OT. Continue with antibiotic treatment. The patient's blood culture has been negative. Urine culture is also unremarkable. Patient is on IV Zosyn. We will continue that for now. She has had total 6 days of IV antibiotic. Will recommend another 24 hours of IV antibiotics prior to stopping them. Continue all current medications. Further recommendations upon the clinical response of the patient. MMODL / IJN: [id number] /
[2017-08-10 17:36] LABS: Glucose,Whole Blood 107 mg/dL (75-99)
[2017-08-10] MEDS: MVI, ADULT NO.4 WITH VIT K 10 ML, TRACE (CONC-1ML/DOSE) 1 ML in AMIN 3.3%/DEX 9.8%/LIPI... IV SCH ×3 (20:01)
[2017-08-10] MEDS: MIRTAZAPINE 15 MG TAB PO SCH (20:20)
[2017-08-11 00:14] LABS: Glucose,Whole Blood 116 mg/dL (75-99)
[2017-08-11] MEDS: INSULIN ASPART 100 UNIT/ML 1 ML 10 ML VIAL SQ SCH ×4 (00:19→18:21)
[2017-08-11] MEDS: PIPERACILLIN-TAZOBACTAM 3.375 GM in DEXTROSE/WATER 1 50ML.BAG IVPB SCH ×4 (00:19→23:40)
[2017-08-11] MEDS: D5-0.45% NACL WITH KCL 20MEQ/L 1,000 ML IV SCH (04:47)
--- NOTE | 2017-08-11 05:35 | PN ---
PROGRESS NOTE DATE OF SERVICE: 08/10/2017. REASON FOR FOLLOWUP: Complicated diverticulitis with colorectal fistula. INTERVAL HISTORY: The patient is afebrile. She seems to be breathing comfortably. Pain in the abdominal currently controlled. No nausea, no vomiting. Oral intake remains to be poor. EXAMINATION: Blood pressure is 137/59 with a pulse of 97, temperature of 97.9. She is 100% on room air. General description is an elderly female lying in bed in no distress. Respiratory system: Unlabored breathing. Clear to auscultation anteriorly. Heart S1, S2. Regular rate and rhythm. Abdomen soft. No tenderness. Extremities: No edema of the feet. LABS: BUN of 16, creatinine 0.59. DIAGNOSTIC IMPRESSION AND PLAN: Patient with a complicated diverticulitis, status post diverting colostomy. The plan is to keep the patient on Zosyn. Hopefully finish therapy with oral antibiotics. Continue supportive care. MMODL / IJN: [id number] /
[2017-08-11 05:36] LABS: Glucose,Whole Blood 127 mg/dL (75-99)
[2017-08-11] MEDS: LEVOTHYROXINE 25 MCG TAB PO SCH (06:04)
[2017-08-11] MEDS: FAMOTIDINE 20 MG TAB PO SCH (07:18)
[2017-08-11] MEDS: HEPARIN SODIUM,PORCINE 5,000 UNIT/ML 1 ML VIAL SQ SCH ×2 (07:18→19:38)
[2017-08-11 08:48] LABS: Anion Gap 7 mmol/L; Blood Urea Nitrogen 18 mg/dL (7-17); Calcium 7.7 mg/dL (8.4-10.2); Carbon Dioxide 27 mmol/L (22-30); Chloride 100 mmol/L (98-107); Glucose 110 mg/dL (74-99); Magnesium 2.2 mg/dL (1.6-2.3); Phosphorus 3.5 mg/dL (2.5-4.5); Potassium 3.8 mmol/L (3.5-5.1); Sodium 134 mmol/L (137-145)
[2017-08-11 09:01] LABS: Ionized Calcium 4.7 mg/dL (4.5-5.3)
[2017-08-11 10:59] LABS: Anisocytosis Slight; Basophils % (A) 0 %; Eosinophils # (A) 0.2 k/uL (0-0.7); Eosinophils % (A) 2 %; HCT 26.8 % (34.0-46.0); Hypochromasia Marked; Lymphocytes # (A) 0.8 k/uL (1.0-4.8); Lymphocytes % (A) 9 %; MCH 27.8 pg (25.0-35.0); MCHC 29.8 g/dL (31.0-37.0); MCV 93.2 fL (80.0-100.0); Mean Platelet Volume 7.5; Monocytes # (A) 0.4 k/uL (0-1.0); Monocytes % (A) 5 %; Neutrophils # (A) 7.3 k/uL (1.3-7.7); Neutrophils % (A) 81 %; Platelet Count 423 k/uL (150-450); Poikilocytosis Slight; RBC 2.88 m/uL (3.80-5.40); RDW 16.1 % (11.5-15.5)
[2017-08-11 12:02] LABS: Glucose,Whole Blood 120 mg/dL (75-99)
--- NOTE | 2017-08-11 12:17 | P.PN ---
<Aysha Dorsey - Last Filed: 08/11/17 12:04> Subjective Progress Note Date: 08/11/17 77-year-old female seen and examined. Nursing reports patient refusing to eat has a poor caloric intake. Has an ostomy in place in the left lower quadrant small amount of brown stool noted in the ostomy bag small amou active bowel tones no nausea no vomiting hyperalimentation infusing for nutritional support. Indwelling Spear catheter in place shauna urine August 05 diverging sigmoid colostomy for colovaginal fistula Objective - Vital Signs Vital signs: Vital Signs Temp 98.3 F 08/11/17 08:25 Pulse 85 08/11/17 08:25 Resp 16 08/11/17 08:25 BP 151/71 08/11/17 08:25 Pulse Ox 100 08/11/17 08:25 Intake & Output 08/10/17 08/11/17 08/11/17 18:59 06:59 18:59 Intake Total 1551 Output Total 1800 600 750 Balance -1800 951 -750 Weight 50 kg 50.2 kg Intake: Intake, IV Titration 1551 Amount Mvi, Adult No.4 with Vit 1551 K 10 ml Trace (Conc-1Ml/ Dose) 1 ml In Brian 3.3%/ Dex 9.8%/Lipid/Lytes 1, 540 ml @ 64 mls/hr IV . Q24H [facility] Rx#:[id number] Output: Urine 1800 600 750 Uretheral (Spear) 600 250 Other: Voiding Method Indwelling Catheter Indwelling Catheter Indwelling Catheter # Voids 0 - Exam exam Abdomen soft not distended no facial grimacing with palpitation to the abdominal wall ostomy stoma pink moderate amount of brown stool in the ostomy bag bowel tones present no nausea vomiting poor caloric intake per nursing report TPN infusing indwelling Spear catheter in place - Labs CBC & Chem 7: 08/11/17 07:58 08/11/17 07:58 Labs: Abnormal Lab Results - Last 24 Hours (Table) 08/10/17 08/11/17 08/11/17 Range/Units 17:30 00:11 05:29 RBC (3.80-5.40) m/uL Hgb (11.4-16.0) gm/dL Hct (34.0-46.0) % MCHC (31.0-37.0) g/dL RDW (11.5-15.5) % Lymphocytes # (1.0-4.8) k/uL Sodium (137-145) mmol/L BUN (7-17) mg/dL Glucose (74-99) mg/dL POC Glucose (mg/dL) 107 H 116 H 127 H (75-99) mg/dL Calcium (8.4-10.2) mg/dL 08/11/17 08/11/17 08/11/17 Range/Units 07:58 07:58 11:58 RBC 2.88 L (3.80-5.40) m/uL Hgb 8.0 L (11.4-16.0) gm/dL Hct 26.8 L (34.0-46.0) % MCHC 29.8 L (31.0-37.0) g/dL RDW 16.1 H (11.5-15.5) % Lymphocytes # 0.8 L (1.0-4.8) k/uL Sodium 134 L (137-145) mmol/L BUN 18 H (7-17) mg/dL Glucose 110 H (74-99) mg/dL POC Glucose (mg/dL) 120 H (75-99) mg/dL Calcium 7.7 L (8.4-10.2) mg/dL Assessment and Plan Assessment: Impression Dementia with no behavior disturbance Right-sided hydronephrosis History of rectal cancer status post chemo and radiation treatment Present on admission possible stool from vagina 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 ruled out Present on admission UTI ruled out with a urine culture negative A recent laparoscopic cholecystectomy July 25 Anemia of chronic illness with no evidence of a GI bleed Postop Diverging sigmoid colostomy for Colovaginal fistula Computed tomography scan abdomen pelvis without contrast done on August 07 show mild to moderate right hydronephrosis Plan Dietitian to do calorie count Start Megace to stimulate appetite Have patient up in a chair with PT OT Start tapering TPN if able One-on-one assist with meals Continue postop surgical care Start ostomy teaching and ostomy care IV hydration DVT and GI prophylaxis Repeat labs in the morning continue IV Zosyn as ordered dietitian recommendations Dictating a progress note for Dr. Elizabeth rounding on behalf of dr caruso The above impression and plan of care have been discussed and directed by signing physician. Aysha Dorsey nurse practitioner acting as scribe for signing physician. <Bennett Elizabeth - Last Filed: 08/11/17 15:32> Objective - Vital Signs Vital signs: Vital Signs Temp 98.3 F 08/11/17 08:25 Pulse 85 08/11/17 08:25 Resp 16 08/11/17 08:25 BP 151/71 08/11/17 08:25 Pulse Ox 100 08/11/17 08:25 Intake & Output 08/10/17 08/11/17 08/11/17 18:59 06:59 18:59 Intake Total 1551 Output Total 1800 600 750 Balance -1800 951 -750 Weight 50 kg 50.2 kg 50.2 kg Intake: Intake, IV Titration 1551 Amount Mvi, Adult No.4 with Vit 1551 K 10 ml Trace (Conc-1Ml/ Dose) 1 ml In Brian 3.3%/ Dex 9.8%/Lipid/Lytes 1, 540 ml @ 64 mls/hr IV . Q24H [facility] Rx#:[id number] Output: Urine 1800 600 750 Uretheral (Spear) 600 250 Other: Voiding Method Indwelling Catheter Indwelling Catheter Indwelling Catheter # Voids 0 - Labs CBC & Chem 7: 08/11/17 07:58 08/11/17 07:58 Labs: Abnormal Lab Results - Last 24 Hours (Table) 08/10/17 08/11/17 08/11/17 Range/Units 17:30 00:11 05:29 RBC (3.80-5.40) m/uL Hgb (11.4-16.0) gm/dL Hct (34.0-46.0) % MCHC (31.0-37.0) g/dL RDW (11.5-15.5) % Lymphocytes # (1.0-4.8) k/uL Sodium (137-145) mmol/L BUN (7-17) mg/dL Glucose (74-99) mg/dL POC Glucose (mg/dL) 107 H 116 H 127 H (75-99) mg/dL Calcium (8.4-10.2) mg/dL 08/11/17 08/11/17 08/11/17 Range/Units 07:58 07:58 11:58 RBC 2.88 L (3.80-5.40) m/uL Hgb 8.0 L (11.4-16.0) gm/dL Hct 26.8 L (34.0-46.0) % MCHC 29.8 L (31.0-37.0) g/dL RDW 16.1 H (11.5-15.5) % Lymphocytes # 0.8 L (1.0-4.8) k/uL Sodium 134 L (137-145) mmol/L BUN 18 H (7-17) mg/dL Glucose 110 H (74-99) mg/dL POC Glucose (mg/dL) 120 H (75-99) mg/dL Calcium 7.7 L (8.4-10.2) mg/dL Assessment and Plan Assessment: As above. Patient complaining of mild abdominal pain. Appetite diminished. Ostomy function improving. Energy level poor. Agree with weaning TPN. Continue Megace. Encourage oral intake.
[2017-08-11] MEDS: MEGESTROL 400 MG/10 ML CUP PO SCH (12:57)
[2017-08-11 17:48] LABS: Glucose,Whole Blood 101 mg/dL (75-99)
[2017-08-11] MEDS: MIRTAZAPINE 15 MG TAB PO SCH (19:37)
[2017-08-11] MEDS: PANTOPRAZOLE 40 MG/10 ML VIAL IVP SCH (19:38)
--- NOTE | 2017-08-11 20:42 | PN ---
PROGRESS NOTE DATE OF SERVICE: 08/11/2017 This 77-year-old woman who was admitted after colovaginal fistula had diverting colostomy. The patient had previous rectal cancer radiation and chemotherapy also. The patient also had extremely poor p.o. intake and TPN has been initiated. Surgery is following the patient closely. The colostomy seems to be working fine at this time. Past medical history reviewed. Review of systems could not be taken; the patient is mildly confused. CURRENT MEDICATIONS: Current medications are reviewed and include: 1. Tylenol 650 q.6 p.r.n. 2. Pepcid 20 mg b.i.d. 3. Heparin 5000 units subcutaneously b.i.d. 4. Dilaudid 4 mg q.3 p.r.n. 5. NovoLog. 6. Synthroid. 7. Megace 400 mg p.o. daily. 8. Narcan. 9. Zofran. 10.TPN. 11.Ultram. PHYSICAL EXAMINATION: Patient is alert, oriented x1. Pulse 94, blood pressure 128/64, respiration 16, temperature 97.4, pulse ox 100% on 2 L. HEENT: Conjunctivae normal. Oral mucosa moist. NECK: No jugular venous distention. No carotid bruit. No lymph node enlargement. CARDIOVASCULAR SYSTEM: S1, S2 muffled. No S3. No S4. RESPIRATORY SYSTEM: Breath sounds diminished at the bases. A few scattered rhonchi. No crackles. ABDOMEN: Soft. Status post surgery. Colostomy present. LEGS: No edema. No swelling. NERVOUS SYSTEM: Higher functions as mentioned earlier. Moves all 4 limbs. No focal motor or sensory deficit. LYMPHATICS: No lymph node palpable in neck, axillae or groin. SKIN: No ulcer, rash, bleeding. LABS: WBC 9, hemoglobin 8. Sodium 134, potassium 3.8, calcium 7.7, glucose 110. ASSESSMENT: 1. Status post diverting sigmoid colostomy with a colovaginal fistula. 2. Acute urinary tract infection with sepsis, present on admission. 3. Diminished oral intake. 4. On total parenteral nutrition. 5. Increased white count. 6. Hypokalemia. 7. Normocytic anemia. 8. Hyponatremia. 9. Increased AST, ALT. 10.History of recent laparoscopic cholecystectomy for acute on chronic cholecystitis. 11.History of dementia, cognitive impairment. 12.History of rectal cancer with chemotherapy and radiation. 13.History of medical debility. 14.History of gait dysfunction. RECOMMENDATIONS AND DISCUSSION: I recommend to continue current medication, continue symptomatic treatment. Otherwise, at this time I would recommend repeat labs. Encourage p.o. otherwise continue with the TPN at this times. Calorie count. Broad-spectrum IV antibiotics. I also recommend Protonix. Further recommendations to follow. See orders for further details. DVT prophylaxis. MMODL / IJN: [id number] / DOM
--- NOTE | 2017-08-11 22:33 | PN ---
PROGRESS NOTE DATE OF SERVICE: 08/11/2017. REASON FOR FOLLOWUP: Complicated diverticulitis with colovesical fistula. INTERVAL HISTORY: The patient is afebrile. She is breathing comfortably. Oral intake remains to be poor. No nausea, no vomiting and no worsening abdominal pain. PHYSICAL EXAMINATION: On admission blood pressure 128/64 with a pulse of 94, temperature 97.5, she is 100% on 2 L nasal cannula. General description is an elderly female lying in bed in no distress. Respiratory system: Unlabored breathing, clear to auscultation anteriorly. Heart S1, S2 regular rate and rhythm. Abdomen soft, no tenderness. Extremities: No edema of the feet. LABS: Hemoglobin 8, white count 9.0 with a BUN of 18, creatinine 0.60. DIAGNOSTIC IMPRESSION AND PLAN: Patient with complicated diverticulitis with colovesical fistula. Patient currently on Zosyn, currently in the process of weaning off the TPN after oral intake is improved, hopefully to finish therapy with oral antibiotics. Continue supportive care. MMODL / IJN: [id number] /
[2017-08-11 23:47] LABS: Glucose,Whole Blood 102 mg/dL (75-99)
[2017-08-12] MEDS: INSULIN ASPART 100 UNIT/ML 1 ML 10 ML VIAL SQ SCH ×5 (00:25→23:51)
[2017-08-12] MEDS: MVI, ADULT NO.4 WITH VIT K 10 ML, TRACE (CONC-1ML/DOSE) 1 ML in AMIN 3.3%/DEX 9.8%/LIPI... IV SCH ×3 (00:25)
[2017-08-12] MEDS: D5-0.45% NACL WITH KCL 20MEQ/L 1,000 ML IV SCH ×2 (00:26→23:12)
[2017-08-12 05:48] LABS: Glucose,Whole Blood 100 mg/dL (75-99)
[2017-08-12] MEDS: LEVOTHYROXINE 25 MCG TAB PO SCH (06:10)
[2017-08-12] MEDS: PANTOPRAZOLE 40 MG/10 ML VIAL IVP SCH (07:55)
[2017-08-12] MEDS: HEPARIN SODIUM,PORCINE 5,000 UNIT/ML 1 ML VIAL SQ SCH ×2 (07:55→20:34)
[2017-08-12] MEDS: MEGESTROL 400 MG/10 ML CUP PO SCH (07:55)
[2017-08-12] MEDS: PIPERACILLIN-TAZOBACTAM 3.375 GM in DEXTROSE/WATER 1 50ML.BAG IVPB SCH ×3 (07:55→23:42)
[2017-08-12 08:42] LABS: Ionized Calcium 4.8 mg/dL (4.5-5.3)
[2017-08-12 08:43] LABS: Anisocytosis Slight; Basophils % (A) 0 %; Eosinophils # (A) 0.1 k/uL (0-0.7); Eosinophils % (A) 1 %; HGB 7.2 gm/dL (11.4-16.0); Hypochromasia Marked; Lymphocytes # (A) 0.9 k/uL (1.0-4.8); Lymphocytes % (A) 12 %; MCH 27.6 pg (25.0-35.0); MCHC 29.9 g/dL (31.0-37.0); MCV 92.2 fL (80.0-100.0); Mean Platelet Volume 7.1; Monocytes # (A) 0.3 k/uL (0-1.0); Monocytes % (A) 5 %; Neutrophils # (A) 5.8 k/uL (1.3-7.7); Neutrophils % (A) 79 %; Platelet Count 414 k/uL (150-450); RDW 16.7 % (11.5-15.5); WBC 7.3 k/uL (3.8-10.6)
[2017-08-12 08:45] LABS: Anion Gap 6 mmol/L; Blood Urea Nitrogen 19 mg/dL (7-17); Calcium 7.8 mg/dL (8.4-10.2); Carbon Dioxide 29 mmol/L (22-30); Chloride 99 mmol/L (98-107); Glucose 93 mg/dL (74-99); Magnesium 2.3 mg/dL (1.6-2.3); Phosphorus 3.4 mg/dL (2.5-4.5); Potassium 3.6 mmol/L (3.5-5.1); Sodium 134 mmol/L (137-145)
[2017-08-12 11:56] LABS: Glucose,Whole Blood 103 mg/dL (75-99)
--- NOTE | 2017-08-12 12:05 | P.PN ---
Subjective Progress Note Date: 08/12/17 77-year-old female seen and examined. Upon entering the room this morning the patient's PICC line had been pulled out by patient picc line laying in the bed. Patient is pleasantly confused. Patient is asking to be left alone. Nursing reports patient is refusing to eat. Patient had been receiving TPN through the PICC line patient is oriented to self only this morning Objective - Vital Signs Vital signs: Vital Signs Temp 97.9 F 08/12/17 08:56 Pulse 88 08/12/17 08:56 Resp 18 08/12/17 08:56 BP 131/58 08/12/17 08:56 Pulse Ox 98 08/12/17 08:56 Intake & Output 08/11/17 08/12/17 08/12/17 18:59 06:59 18:59 Intake Total 150 120 Output Total 1600 300 Balance -1450 -180 Weight 50.2 kg 47 kg Intake: Oral 150 120 Output: Urine 1000 Uretheral (Spear) 250 Stool 600 300 Other: Voiding Method Indwelling Catheter Indwelling Catheter Indwelling Catheter - Exam exam Abdomen soft not distended no facial grimacing with palpitation to the abdominal wall ostomy stoma pink moderate amount of brown stool in the ostomy bag bowel tones present no nausea vomiting poor caloric intake per nursing report indwelling Spear catheter in place TPN currently not infusing as patient pulled PICC line out a firm area noted to the left buttocks ozzing per rectum liquid brown stool peritoneal area skin excoriation noted - Labs CBC & Chem 7: 08/12/17 07:57 08/12/17 07:57 Labs: Abnormal Lab Results - Last 24 Hours (Table) 08/11/17 08/11/17 08/11/17 Range/Units 11:58 17:43 23:41 RBC (3.80-5.40) m/uL Hgb (11.4-16.0) gm/dL Hct (34.0-46.0) % MCHC (31.0-37.0) g/dL RDW (11.5-15.5) % Lymphocytes # (1.0-4.8) k/uL Sodium (137-145) mmol/L BUN (7-17) mg/dL POC Glucose (mg/dL) 120 H 101 H 102 H (75-99) mg/dL Calcium (8.4-10.2) mg/dL 08/12/17 08/12/17 08/12/17 Range/Units 05:44 07:57 07:57 RBC 2.60 L (3.80-5.40) m/uL Hgb 7.2 L (11.4-16.0) gm/dL Hct 24.0 L (34.0-46.0) % MCHC 29.9 L (31.0-37.0) g/dL RDW 16.7 H (11.5-15.5) % Lymphocytes # 0.9 L (1.0-4.8) k/uL Sodium 134 L (137-145) mmol/L BUN 19 H (7-17) mg/dL POC Glucose (mg/dL) 100 H (75-99) mg/dL Calcium 7.8 L (8.4-10.2) mg/dL Assessment and Plan Assessment: Impression Dementia with no behavior disturbance Right-sided hydronephrosis History of rectal cancer status post chemo and radiation treatment Present on admission possible stool from vagina 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 ruled out Present on admission UTI ruled out with a urine culture negative A recent laparoscopic cholecystectomy July 25 Anemia of chronic illness with no evidence of a GI bleed Postop Diverging sigmoid colostomy for Colovaginal fistula Computed tomography scan abdomen pelvis without contrast done on August 07 show mild to moderate right hydronephrosis Plan Dietitian to do calorie count Start Megace to stimulate appetite Have patient up in a chair with PT OT Start PPN per dietitian One-on-one assist with meals Continue postop surgical care Start ostomy teaching and ostomy care IV hydration DVT and GI prophylaxis Repeat labs in the morning continue IV Zosyn as ordered dietitian recommendations Dictating a progress note for Dr. Elizabeth rounding on behalf of dr caruso The above impression and plan of care have been discussed and directed by signing physician. Aysha Dorsey nurse practitioner acting as scribe for signing physician.
[2017-08-12 13:40] VITALS: BMI 18.9
[2017-08-12] MEDS ORDERED: MVI, ADULT NO.4 WITH VIT K 10 ML, TRACE (CONC-1ML/DOSE) 1 ML in AMINO ACID 4.25%-D10W+L... IV SCH ×3 (14:00)
--- NOTE | 2017-08-12 15:55 | PN ---
PROGRESS NOTE DATE OF SERVICE: 08/12/2017 REASON FOR FOLLOWUP: Complicated diverticulitis with colovesical fistula. INTERVAL HISTORY: The patient is afebrile. She is breathing comfortably. Denies having any chest pain, shortness of breath or cough. No abdominal pain. Oral intake remains poor. No nausea and no vomiting. PHYSICAL EXAMINATION: Blood pressure 131/58 with a pulse of 88, temperature 97.9. She is 98% on room air. General description is an elderly female lying in bed in no distress. RESPIRATORY SYSTEM: Unlabored breathing. Clear to auscultation anteriorly. HEART: S1, S2. Regular rate and rhythm. ABDOMEN: Soft. No tenderness. LABS: Hemoglobin is 7.2, white count 7.3. BUN of 19, creatinine 0.70. DIAGNOSTIC IMPRESSION AND PLAN: Patient with complicated diverticulitis and colovesical fistula, status post diverting colostomy. She is currently on Zosyn; transitioning her to oral antibiotics in the form of Cipro and Flagyl for another week or 10 days on discharge. Continue supportive care. MMODL / IJN: [id number] /
[2017-08-12 17:25] LABS: Glucose,Whole Blood 104 mg/dL (75-99)
[2017-08-12] MEDS: MIRTAZAPINE 15 MG TAB PO SCH (20:34)
[2017-08-12 22:18] VITALS: RESP 16
[2017-08-12 23:52] LABS: Glucose,Whole Blood 115 mg/dL (75-99)
--- NOTE | 2017-08-13 00:23 | P.PN ---
Subjective Progress Note Date: 08/12/17 Principal diagnosis: Sepsis secondary to urinary tract infection and dementia Patient is a 77-year-old female was admitted to hospital with colovaginal fistula. Patient had diverticular colostomy. Patient has periods history of rectal cancer and history of radiation as well. Otherwise patient is having extreme a poor oral intake and was on TPN via PICC line. Patient pulled out PICC line yesterday. Patient was also found have red indurated area on both sides of ischial tuberosity. Patient is a poor historian due to underlying dementia Complete review of systems could not be obtained from the patient Active Medications Acetaminophen (Tylenol Tab) 650 mg PO Q6HR PRN PRN Reason: Mild Pain or Fever > 100.5 Heparin Sodium (Porcine) (Heparin) 5,000 unit SQ Q12HR [facility] Last Admin: 08/12/17 20:34 Dose: 5,000 unit Hydromorphone HCl (Dilaudid) 4 mg PO Q3HR PRN PRN Reason: Severe Pain Piperacillin/Tazobactam/ (Dextrose 3.375 gm/ IV Solution) 50 mls @ 12.5 mls/hr IVPB Q8HR [facility] Last Admin: 08/12/17 23:42 Dose: 12.5 mls/hr Potassium Chloride/Dextrose/Sod Cl (D5%-1/2ns-Kcl 20 Meq/L Iv Solution) 1,000 mls @ 50 mls/hr IV .Q20H [facility] Last Admin: 08/12/17 23:12 Dose: Not Given Parenteral Vitamin Supplement 10 ml/ Chromium/Copper/Manganese/Seleni/Zn 1 ml/ Amino Ac/Electrol/Dextrose/Calcium 1,011 mls @ 50 mls/hr IV .[id number] [facility] Stop: 08/13/17 10:13 Last Admin: 08/12/17 16:21 Dose: 50 mls/hr Parenteral Vitamin Supplement 10 ml/ Chromium/Copper/Manganese/Seleni/Zn 1 ml/ Amino Ac/Electrol/Dextrose/Calcium 1,011 mls @ 83 mls/hr IV .BY DURATION [facility] Amino Ac/Electrol/Dextrose/Calcium (Clinimix E 4.25%-D10% Solution) 1,000 mls @ 83 mls/hr IV .BY DURATION [facility] Fat Emulsion Intravenous (Lipids 20%) 250 mls @ 20.833 mls/hr IV MoWeFr [facility] Insulin Aspart (Novolog) 0 unit SQ Q6HR [facility] PRN Reason: Protocol Last Admin: 08/12/17 23:51 Dose: Not Given Levothyroxine Sodium (Synthroid) 25 mcg PO DAILY@0630 [facility] Last Admin: 08/12/17 06:10 Dose: 25 mcg Megestrol Acetate (Megace) 400 mg PO DAILY [facility] Last Admin: 08/12/17 07:55 Dose: 400 mg Mirtazapine (Remeron) 30 mg PO HS [facility] Last Admin: 08/12/17 20:34 Dose: 30 mg Naloxone HCl (Narcan) 0.2 mg IV Q2M PRN PRN Reason: Opioid Reversal Ondansetron HCl (Zofran) 4 mg IVP Q8HR PRN PRN Reason: Nausea And Vomiting Pantoprazole Sodium (Protonix) 40 mg IVP DAILY [facility] Last Admin: 08/12/17 07:55 Dose: 40 mg Sodium Chloride (Saline Flush) 20 ml IV Q4HR PRN PRN Reason: PICC Line Sodium Chloride (Saline Flush) 10 ml IV WEEKLY [facility] Sodium Chloride (Saline Flush) 10 ml IV Q4HR PRN PRN Reason: PICC Line Tramadol HCl (Ultram) 50 mg PO Q6H PRN PRN Reason: Moderate Pain Last Admin: 08/06/17 22:29 Dose: 50 mg Objective - Vital Signs Vital signs: Vital Signs Temp 98.0 F 08/12/17 15:00 Pulse 87 08/12/17 15:00 Resp 18 08/12/17 15:00 BP 138/64 08/12/17 15:00 Pulse Ox 95 08/12/17 15:00 Intake & Output 08/12/17 08/12/17 08/13/17 06:59 18:59 06:59 Intake Total 120 Output Total 300 550 Balance -180 -550 Weight 47 kg 47 kg Intake: Oral 120 Output: Urine 550 Uretheral (Spear) 550 Stool 300 Other: Voiding Method Indwelling Catheter Indwelling Catheter - Exam PHYSICAL EXAMINATION: Patient is lying in the bed comfortably, no acute distress, awake and alert could not provide any history HEENT: Normocephalic. Neck is supple. Pupils reactive. Nostrils clear. Oral cavity is moist. Ears reveal no drainage. Neck reveals no JVD, carotid bruits, or thyromegaly. CHEST EXAMINATION: Trachea is central. Symmetrical expansion. Lung becerra clear to auscultation and percussion. CARDIAC: Normal S1, S2 with no gallops. No murmurs ABDOMEN: Soft. Bowel sounds normal. No organomegaly. No abdominal bruits. Bilateral red indurated area on both sides of rectum over ischial tubrosity Patient also has leaking of stool through the rectum Extremities: reveal no edema. No clubbing or cyanosis Neurologically awake, alert and oriented 1. with well-coordinated movements. No focal deficits noted Skin: No rash or skin lesions. Psychiatric: Patient was to be left alone Musculoskeletal: No joint swelling or deformity. Normal range of motion. - Labs CBC & Chem 7: 08/12/17 07:57 08/12/17 07:57 Labs: Abnormal Lab Results - Last 24 Hours (Table) 08/11/17 08/12/17 08/12/17 Range/Units 23:41 05:44 07:57 RBC (3.80-5.40) m/uL Hgb (11.4-16.0) gm/dL Hct (34.0-46.0) % MCHC (31.0-37.0) g/dL RDW (11.5-15.5) % Lymphocytes # (1.0-4.8) k/uL Sodium 134 L (137-145) mmol/L BUN 19 H (7-17) mg/dL POC Glucose (mg/dL) 102 H 100 H (75-99) mg/dL Calcium 7.8 L (8.4-10.2) mg/dL 08/12/17 08/12/17 08/12/17 Range/Units 07:57 11:53 17:19 RBC 2.60 L (3.80-5.40) m/uL Hgb 7.2 L (11.4-16.0) gm/dL Hct 24.0 L (34.0-46.0) % MCHC 29.9 L (31.0-37.0) g/dL RDW 16.7 H (11.5-15.5) % Lymphocytes # 0.9 L (1.0-4.8) k/uL Sodium (137-145) mmol/L BUN (7-17) mg/dL POC Glucose (mg/dL) 103 H 104 H (75-99) mg/dL Calcium (8.4-10.2) mg/dL Assessment and Plan Assessment: Status post diverting colostomy due to colovaginal fistula Sepsis secondary to urinary tract infection Indurated area on bilateral ischial tuberosity could be due to previous radiation. No fluctuation or drainage noted. Doesn't seem to be tender Diminished oral intake. Maintained on TPN via PICC line but full PICC line today Hypokalemia Normocytic anemia Recent laparoscopic cholecystectomy Dementia and cognitive impairment History of rectal cancer status post chemo and radiation Medical debility and gait dysfunction Moderate protein calorie malnutrition next Plan: Patient be continued on IV antibiotics for urinary tract infection. Encourage oral intake. Otherwise Patient does have very poor oral intake and is currently maintained on TPN for the patient pulled out PICC line. Patient is not a candidate for PEG tube due to underlying dementia and is also pulling out tubes. Patient was to be left alone. We will discuss with caregiver/legal guardian for further treatment course and consideration to comfort comfort measures. Prognosis is poor with multiple medical problems and comorbid conditions along with poor oral intake. Time with Patient: Greater than 30
[2017-08-13] MEDS: 1: MVI, ADULT NO.4 WITH VIT K 10 ML, TRACE (CONC-1ML/DOSE) 1 ML in AMINO ACID 4.25%-D10W IV SCH ×9 (05:25→18:29)
[2017-08-13] MEDS: INSULIN ASPART 100 UNIT/ML 1 ML 10 ML VIAL SQ SCH ×3 (05:26→18:28)
[2017-08-13] MEDS: LEVOTHYROXINE 25 MCG TAB PO SCH (06:00)
[2017-08-13 06:24] LABS: Glucose,Whole Blood 112 mg/dL (75-99)
[2017-08-13] MEDS: PIPERACILLIN-TAZOBACTAM 3.375 GM in DEXTROSE/WATER 1 50ML.BAG IVPB SCH ×2 (08:21→18:28)
[2017-08-13] MEDS: MEGESTROL 400 MG/10 ML CUP PO SCH (08:31)
[2017-08-13] MEDS: HEPARIN SODIUM,PORCINE 5,000 UNIT/ML 1 ML VIAL SQ SCH (08:32)
[2017-08-13] MEDS: PANTOPRAZOLE 40 MG/10 ML VIAL IVP SCH (08:32)
[2017-08-13] MEDS ORDERED: FAT EMULSION 20% 250 ML IV SCH (09:00)
[2017-08-13 09:22] LABS: Anisocytosis Slight; Basophils % (A) 0 %; Eosinophils # (A) 0.1 k/uL (0-0.7); Eosinophils % (A) 1 %; HGB 7.7 gm/dL (11.4-16.0); Hypochromasia Moderate; Lymphocytes # (A) 0.9 k/uL (1.0-4.8); Lymphocytes % (A) 13 %; MCH 27.1 pg (25.0-35.0); MCHC 29.6 g/dL (31.0-37.0); MCV 91.3 fL (80.0-100.0); Mean Platelet Volume 7.6; Monocytes # (A) 0.3 k/uL (0-1.0); Monocytes % (A) 4 %; Neutrophils # (A) 5.7 k/uL (1.3-7.7); Neutrophils % (A) 80 %; Platelet Count 443 k/uL (150-450); RBC 2.84 m/uL (3.80-5.40); RDW 16.4 % (11.5-15.5); WBC 7.1 k/uL (3.8-10.6)
[2017-08-13 09:30] LABS: Ionized Calcium 4.9 mg/dL (4.5-5.3)
[2017-08-13 09:40] LABS: Anion Gap 8 mmol/L; Blood Urea Nitrogen 20 mg/dL (7-17); Carbon Dioxide 26 mmol/L (22-30); Chloride 101 mmol/L (98-107); Glucose 113 mg/dL (74-99); Phosphorus 3.6 mg/dL (2.5-4.5); Potassium 3.7 mmol/L (3.5-5.1); Sodium 135 mmol/L (137-145)
--- NOTE | 2017-08-13 11:37 | P.PN ---
Subjective Progress Note Date: 08/13/17 77-year-old female seen this morning. Patient's resting in bed eyes closed will open to verbal stimuli patient is asking to be left alone refusing to eat no family at bedside. Still having episodes incontinent of stool indwelling Spear catheter in place. Ostomy in the left lower quadrant moderate amount of brown stool ostomy bag postopMarch 6 diverging sigmoid colostomy for colovaginal fistula Objective - Vital Signs Vital signs: Vital Signs Temp 98.5 F 08/13/17 08:07 Pulse 85 08/13/17 08:07 Resp 16 08/13/17 08:07 BP 145/65 08/13/17 08:07 Pulse Ox 96 08/13/17 08:07 Intake & Output 08/12/17 08/13/17 08/13/17 18:59 06:59 18:59 Output Total 550 600 Balance -550 -600 Weight 47 kg 51 kg Output: Urine 550 600 Uretheral (Spear) 550 600 Other: Voiding Method Indwelling Catheter Indwelling Catheter - Exam exam Abdomen soft not distended no facial grimacing with palpitation to the abdominal wall ostomy stoma pink moderate amount of brown stool in the ostomy bag bowel tones present no nausea vomiting poor caloric intake per nursing report patient is refusing to eat patient had pulled out the PICC line yesterday TPN was stopped PPN infusing now indwelling Spear catheter in place firm area noted to the left buttocks ozzing per rectum liquid brown stool peritoneal area skin excoriation noted - Labs CBC & Chem 7: 08/13/17 08:45 08/13/17 08:45 Labs: Abnormal Lab Results - Last 24 Hours (Table) 08/12/17 08/12/17 08/12/17 Range/Units 11:53 17:19 23:50 RBC (3.80-5.40) m/uL Hgb (11.4-16.0) gm/dL Hct (34.0-46.0) % MCHC (31.0-37.0) g/dL RDW (11.5-15.5) % Lymphocytes # (1.0-4.8) k/uL Sodium (137-145) mmol/L BUN (7-17) mg/dL Glucose (74-99) mg/dL POC Glucose (mg/dL) 103 H 104 H 115 H (75-99) mg/dL Calcium (8.4-10.2) mg/dL 08/13/17 08/13/17 08/13/17 Range/Units 06:22 08:45 08:45 RBC 2.84 L (3.80-5.40) m/uL Hgb 7.7 L (11.4-16.0) gm/dL Hct 26.0 L (34.0-46.0) % MCHC 29.6 L (31.0-37.0) g/dL RDW 16.4 H (11.5-15.5) % Lymphocytes # 0.9 L (1.0-4.8) k/uL Sodium 135 L (137-145) mmol/L BUN 20 H (7-17) mg/dL Glucose 113 H (74-99) mg/dL POC Glucose (mg/dL) 112 H (75-99) mg/dL Calcium 8.0 L (8.4-10.2) mg/dL Assessment and Plan Assessment: Impression Dementia with no behavior disturbance Right-sided hydronephrosis History of rectal cancer status post chemo and radiation treatment Present on admission possible stool from vagina 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 ruled out Present on admission UTI ruled out with a urine culture negative A recent laparoscopic cholecystectomy July 25 Anemia of chronic illness with no evidence of a GI bleed Postop Diverging sigmoid colostomy for Colovaginal fistula Computed tomography scan abdomen pelvis without contrast done on August 07 show mild to moderate right hydronephrosis Failure to thrive Plan Defer to the attending to address treatment options patient appropriate candidate for palliative hospice care From a surgical perspective felt to be medically stable to transfer to [facility] return to [facility] to stimulate appetite Have patient up in a chair with PT OT Start PPN per dietitian DVT and GI prophylaxi We'll sign off and re-eval as needed Dictating a progress note for dr caruso The above impression and plan of care have been discussed and directed by signing physician. Aysha Dorsey nurse practitioner acting as scribe for signing physician.
[2017-08-13 11:52] LABS: Glucose,Whole Blood 132 mg/dL (75-99)
--- NOTE | 2017-08-13 14:39 | P.DS ---
Providers Date of admission: 08/01/17 20:51 Expected date of discharge: 08/13/17 Attending physician: Meli Yang Consults: 08/01/17 20:48 Consult Physician Urgent Consulting Provider: Yong Gloria Consult Reason/Comments: fistula Do you want consulting provider notified?: Yes 08/02/17 11:14 Consult Physician Routine Consulting Provider: Nikolas Gardner Consult Reason/Comments: colo vesical fistula?? Do you want consulting provider notified?: Yes 08/02/17 11:15 Consult Physician Routine Consulting Provider: Souleymane Trent Consult Reason/Comments: sepsis?? 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 No fluctuation or drainage noted. Doesn't seem to be tender Diminished oral intake. Maintained on TPN via PICC line but full PICC line today Hypokalemia Normocytic anemia Recent laparoscopic cholecystectomy Dementia and cognitive impairment History of rectal cancer status post chemo and radiation Medical debility and gait dysfunction Moderate protein calorie malnutrition next Hospital course Patient is a 77-year-old female was admitted to hospital with colovaginal fistula. Patient had diverticular colostomy. Patient has periods history of rectal cancer and history of radiation as well. Otherwise patient is having extreme a poor oral intake and was on TPN via PICC line. Patient pulled out PICC line yesterday. Patient was also found have red indurated area on both sides of ischial tuberosity. Patient is a poor historian due to underlying dementia Patient was continued on IV antibiotics for urinary tract infection. Encourage oral intake. Otherwise Patient does have very poor oral intake and is currently maintained on TPN for the patient pulled out PICC line. Patient is not a candidate for PEG tube due to underlying dementia and is also pulling out tubes. Patient wants to be left alone. discussed with caregiver/legal guardian for further treatment course and consideration to comfort comfort measures. Caregiver agreed to transfer the patient to hospice care at long-term. Prognosis is poor with multiple medical problems and comorbid conditions along with poor oral intake. We continue to encourage oral intake and started on Megace as well. Antibiotics for 1 more week to complete the course. Otherwise patient is currently hemodynamically stable. = Patient is lying in the bed comfortably, no acute distress, awake and alert could not provide any history HEENT: Normocephalic. Neck is supple. Pupils reactive. Nostrils clear. Oral cavity is moist. Ears reveal no drainage. Neck reveals no JVD, carotid bruits, or thyromegaly. CHEST EXAMINATION: Trachea is central. Symmetrical expansion. Lung becerra clear to auscultation and percussion. CARDIAC: Normal S1, S2 with no gallops. No murmurs ABDOMEN: Soft. Bowel sounds normal. No organomegaly. No abdominal bruits. Bilateral red indurated area on both sides of rectum over ischial tubrosity Patient also has leaking of stool through the rectum Extremities: reveal no edema. No clubbing or cyanosis Neurologically awake, alert and oriented 1. with well-coordinated movements. No focal deficits noted Skin: No rash or skin lesions. Psychiatric: Patient was to be left alone Musculoskeletal: No joint swelling or deformity. Normal range of motion. Vital Signs 08/01/17 08/01/17 08/01/17 17:37 19:46 20:35 Temperature 98.1 F Pulse Rate 96 103 H Pulse Rate [ Pulse Oximetery ] Respiratory 18 18 Rate Blood Pressure 106/56 119/56 Blood Pressure [Right Arm] O2 Sat by Pulse 95 92 L 87 L Oximetry 08/01/17 08/01/17 08/01/17 20:39 21:12 21:40 Temperature 98.6 F 98.6 F Pulse Rate 93 93 Pulse Rate [ 89 Pulse Oximetery ] Respiratory 16 16 17 Rate Blood Pressure 109/57 102/55 Blood Pressure 108/65 [Right Arm] O2 Sat by Pulse 100 100 100 Oximetry 08/02/17 08/02/17 08/02/17 07:00 08:00 15:00 Temperature 97.7 F 98.3 F Pulse Rate Pulse Rate [ 79 79 84 Pulse Oximetery ] Respiratory 18 18 16 Rate Blood Pressure Blood Pressure 108/59 123/62 [Right Arm] O2 Sat by Pulse 100 100 Oximetry 08/02/17 08/02/17 08/03/17 15:18 23:00 07:00 Temperature 98.5 F 98.0 F Pulse Rate Pulse Rate [ 79 85 89 Pulse Oximetery ] Respiratory 18 16 18 Rate Blood Pressure Blood Pressure 105/52 102/57 [Right Arm] O2 Sat by Pulse 100 96 Oximetry 08/03/17 08/03/17 08/03/17 08:00 14:57 16:00 Temperature 97.9 F Pulse Rate Pulse Rate [ 89 95 95 Pulse Oximetery ] Respiratory 18 16 16 Rate Blood Pressure Blood Pressure 138/60 [Right Arm] O2 Sat by Pulse 97 Oximetry 08/03/17 08/04/17 08/04/17 21:19 07:00 15:00 Temperature 98.1 F 98.1 F 98.0 F Pulse Rate Pulse Rate [ 93 84 89 Pulse Oximetery ] Respiratory 16 16 16 Rate Blood Pressure Blood Pressure 152/68 135/65 145/70 [Right Arm] O2 Sat by Pulse 100 95 98 Oximetry 08/04/17 08/05/17 08/05/17 21:00 03:07 07:03 Temperature 97.9 F 98.0 F 97.8 F Pulse Rate Pulse Rate [ 86 91 86 Pulse Oximetery ] Respiratory 16 16 16 Rate Blood Pressure Blood Pressure 137/64 148/62 161/75 [Right Arm] O2 Sat by Pulse 97 99 Oximetry 08/05/17 08/05/17 08/05/17 07:50 08:00 09:11 Temperature 97.6 F Pulse Rate Pulse Rate [ 80 80 81 Pulse Oximetery ] Respiratory 16 16 14 Rate Blood Pressure Blood Pressure 168/78 147/70 [Right Arm] O2 Sat by Pulse 100 100 Oximetry 08/05/17 08/05/17 08/05/17 09:15 09:30 09:45 Temperature Pulse Rate Pulse Rate [ 77 75 76 Pulse Oximetery ] Respiratory 14 14 16 Rate Blood Pressure Blood Pressure 153/73 149/68 159/72 [Right Arm] O2 Sat by Pulse 100 100 100 Oximetry 08/05/17 08/05/17 08/05/17 10:05 10:10 10:15 Temperature 97.8 F Pulse Rate Pulse Rate [ 78 Pulse Oximetery ] Respiratory 16 Rate Blood Pressure Blood Pressure 174/85 168/79 [Right Arm] O2 Sat by Pulse 87 L 98 Oximetry 08/05/17 08/05/17 08/05/17 10:30 11:00 11:12 Temperature Pulse Rate Pulse Rate [ Pulse Oximetery ] Respiratory Rate Blood Pressure Blood Pressure 168/87 174/79 172/85 [Right Arm] O2 Sat by Pulse Oximetry 08/05/17 08/05/17 08/05/17 11:30 12:00 12:30 Temperature Pulse Rate Pulse Rate [ Pulse Oximetery ] Respiratory Rate Blood Pressure Blood Pressure 144/70 141/71 138/72 [Right Arm] O2 Sat by Pulse Oximetry 08/05/17 08/05/17 08/05/17 12:50 15:25 16:00 Temperature 97.9 F Pulse Rate Pulse Rate [ 80 80 Pulse Oximetery ] Respiratory 16 16 Rate Blood Pressure Blood Pressure 144/77 142/76 [Right Arm] O2 Sat by Pulse 97 Oximetry 08/05/17 08/06/17 08/06/17 22:22 08:00 08:36 Temperature 98.2 F 98.4 F Pulse Rate Pulse Rate [ 95 94 94 Pulse Oximetery ] Respiratory 18 16 16 Rate Blood Pressure Blood Pressure 162/77 137/63 [Right Arm] O2 Sat by Pulse 98 100 Oximetry 08/06/17 08/06/17 08/06/17 13:00 16:00 22:15 Temperature 97.9 F 98.6 F Pulse Rate Pulse Rate [ 98 98 99 Pulse Oximetery ] Respiratory 16 16 18 Rate Blood Pressure Blood Pressure 149/68 123/63 [Right Arm] O2 Sat by Pulse 98 99 Oximetry 08/07/17 08/07/17 08/07/17 00:00 07:40 08:00 Temperature 97.6 F Pulse Rate Pulse Rate [ 99 93 93 Pulse Oximetery ] Respiratory 18 16 16 Rate Blood Pressure Blood Pressure 140/63 [Right Arm] O2 Sat by Pulse 96 Oximetry 08/07/17 08/07/17 08/07/17 15:26 16:00 23:13 Temperature 97.8 F 97.2 F L Pulse Rate Pulse Rate [ 95 95 100 Pulse Oximetery ] Respiratory 16 16 16 Rate Blood Pressure Blood Pressure 133/69 144/68 [Right Arm] O2 Sat by Pulse 99 93 L Oximetry 08/08/17 08/08/17 08/08/17 00:00 07:39 08:00 Temperature 97.1 F L Pulse Rate Pulse Rate [ 100 62 64 Pulse Oximetery ] Respiratory 16 16 16 Rate Blood Pressure Blood Pressure 128/67 [Right Arm] O2 Sat by Pulse 97 Oximetry 08/08/17 08/08/17 08/08/17 08:21 11:30 11:45 Temperature 97.2 F L 97.4 F L 97.0 F L Pulse Rate Pulse Rate [ 64 Pulse Oximetery ] Respiratory 16 18 20 Rate Blood Pressure Blood Pressure 122/68 128/67 121/70 [Right Arm] O2 Sat by Pulse 97 98 97 Oximetry 08/08/17 08/08/17 08/08/17 15:11 15:44 23:18 Temperature 98.3 F 97.2 F L Pulse Rate Pulse Rate [ 102 H 103 H Pulse Oximetery ] Respiratory 20 16 16 Rate Blood Pressure Blood Pressure 125/77 138/78 [Right Arm] O2 Sat by Pulse 100 96 Oximetry 08/09/17 08/09/17 08/09/17 08:00 08:26 15:14 Temperature 98.8 F 97.4 F L Pulse Rate Pulse Rate [ 103 H 103 H 111 H Pulse Oximetery ] Respiratory 16 16 18 Rate Blood Pressure Blood Pressure 119/70 132/68 [Right Arm] O2 Sat by Pulse 99 97 Oximetry 08/09/17 08/09/17 08/10/17 15:18 22:47 07:33 Temperature 98 F 97.6 F Pulse Rate Pulse Rate [ 111 H 91 97 Pulse Oximetery ] Respiratory 18 15 16 Rate Blood Pressure Blood Pressure 141/72 137/71 [Right Arm] O2 Sat by Pulse 99 100 Oximetry 08/10/17 08/10/17 08/11/17 14:45 15:30 00:00 Temperature 97.9 F Pulse Rate Pulse Rate [ 97 97 Pulse Oximetery ] Respiratory 18 18 18 Rate Blood Pressure Blood Pressure 137/59 [Right Arm] O2 Sat by Pulse 100 Oximetry 08/11/17 08/11/17 08/11/17 07:32 08:25 16:00 Temperature 98.3 F Pulse Rate Pulse Rate [ 85 94 Pulse Oximetery ] Respiratory 18 16 16 Rate Blood Pressure Blood Pressure 151/71 [Right Arm] O2 Sat by Pulse 100 Oximetry 08/11/17 08/11/17 08/11/17 16:11 19:52 21:49 Temperature 97.5 F L 98.2 F Pulse Rate Pulse Rate [ 94 98 Pulse Oximetery ] Respiratory 16 16 Rate Blood Pressure Blood Pressure 128/64 132/60 [Right Arm] O2 Sat by Pulse 100 98 100 Oximetry 08/11/17 08/12/1718 23:40 08:56 15:00 Temperature 97.9 F 98.0 F Pulse Rate Pulse Rate [ 88 87 Pulse Oximetery ] Respiratory 16 18 18 Rate Blood Pressure Blood Pressure 131/58 138/64 [Right Arm] O2 Sat by Pulse 98 95 Oximetry 08/12/17 08/13/17 08/13/17 22:17 00:00 08:07 Temperature 98.4 F 98.5 F Pulse Rate Pulse Rate [ 96 85 Pulse Oximetery ] Respiratory 16 16 16 Rate Blood Pressure Blood Pressure 125/61 145/65 [Right Arm] O2 Sat by Pulse 96 96 Oximetry Total time taken greater than 35 minutes including 18 minutes for counseling and coordination of care. Patient Condition at Discharge: Serious Plan - Discharge Summary Discharge Rx Participant: No New Discharge Prescriptions: New Megestrol [Megace] 400 mg PO DAILY #30 cup Ciprofloxacin HCl [Cipro] 500 mg PO Q12HR 7 Days #14 tablet metroNIDAZOLE [Flagyl] 500 mg PO Q8HR 7 Days #21 tab Continue Mirtazapine 30 mg PO HS #30 tablet Levothyroxine Sodium [Synthroid] 25 mcg PO DAILY Calcium Polycarbophil [Fibercon] 625 mg PO BID Ergocalciferol (Vitamin D2) [Vitamin D2] 50,000 unit PO BERGER Carbamide Peroxide [Debrox Otic] 5 drops RIGHT EAR HS PRN PRN Reason: Ear Wax Cranberry 425mg Cap 425 mg PO BID traMADol HCl [Ultram] 50 mg PO QID PRN #20 tab PRN Reason: Breakthrough Pain Heparin Sodium,Porcine [Heparin Sodium] 5,000 unit SQ Q12HR #28 vial Na Phos,M-B/Na Phos,Di-Ba [Fleet Adult] 1 dose RECTAL DAILY PRN PRN Reason: Constipation Bisacodyl [Dulcolax] 10 mg RECTAL DAILY PRN PRN Reason: Constipation Menthol/Zinc Oxide [Calmoseptine Ointment] 1 applic TOPICAL BID ALPRAZolam [Xanax] 0.25 mg PO HS@2100 Potassium Chloride [K-Tab ER] 10 meq PO DAILY Pantoprazole [Protonix] 40 mg PO DAILY Magnesium Hydroxide [Milk of Magnesia Concentrate] 7,200 mg PO DAILY PRN PRN Reason: Constipation Changed Loperamide [Imodium] 2 mg PO QID PRN #12 cap PRN Reason: Diarrhea Discontinued Levofloxacin [Levaquin] 500 mg PO DAILY Discharge Medication List Mirtazapine 30 mg PO HS #30 tablet 05/10/16 [Rx] Levothyroxine Sodium [Synthroid] 25 mcg PO DAILY 10/25/16 [History] Calcium Polycarbophil [Fibercon] 625 mg PO BID 07/06/17 [History] Carbamide Peroxide [Debrox Otic] 5 drops RIGHT EAR HS PRN 07/06/17 [History] Cranberry 425mg Cap 425 mg PO BID 07/06/17 [History] Ergocalciferol (Vitamin D2) [Vitamin D2] 50,000 unit PO BERGER 07/06/17 [History] traMADol HCl [Ultram] 50 mg PO QID PRN #20 tab 07/28/17 [Rx] Heparin Sodium,Porcine [Heparin Sodium] 5,000 unit SQ Q12HR #28 vial 07/29/17 [ Rx] ALPRAZolam [Xanax] 0.25 mg PO HS@2100 08/01/17 [History] Bisacodyl [Dulcolax] 10 mg RECTAL DAILY PRN 08/01/17 [History] Magnesium Hydroxide [Milk of Magnesia Concentrate] 7,200 mg PO DAILY PRN [History] Menthol/Zinc Oxide [Calmoseptine Ointment] 1 applic TOPICAL BID 08/01/17 [ History] Na Phos,M-B/Na Phos,Di-Ba [Fleet Adult] 1 dose RECTAL DAILY PRN 08/01/17 [ History] Pantoprazole [Protonix] 40 mg PO DAILY 08/01/17 [History] Potassium Chloride [K-Tab ER] 10 meq PO DAILY 08/01/17 [History] Ciprofloxacin HCl [Cipro] 500 mg PO Q12HR 7 Days #14 tablet 08/13/17 [Rx] Loperamide [Imodium] 2 mg PO QID PRN #12 cap 08/13/17 [Rx] Megestrol [Megace] 400 mg PO DAILY #30 cup 08/13/17 [Rx] metroNIDAZOLE [Flagyl] 500 mg PO Q8HR 7 Days #21 tab 08/13/17 [Rx] Follow up Appointment(s)/Referral(s): Alphonso Keen MD [Primary Care Provider] - 1-2 days Patient Instructions/Handouts: Colostomy Care (GEN) Activity/Diet/Wound Care/Special Instructions: Colostomy Care Recommendations: Last appliance changed: 08.10.2017 Current colostomy Supplies at [facility]: Patient will be sent to ECF/Rehab with the following supplies: Three Convatec cut to fit one piece pouching system #[id number] No Sting prep pads (12) Ostomy powder Discharge Disposition: TRANSFER TO SNF/ECF
[2017-08-13 15:45] VITALS: BP 109/56; PULSE 93; TEMP 98.1
[2017-08-13] MEDS: D5-0.45% NACL WITH KCL 20MEQ/L 1,000 ML IV SCH (18:28)
--- NOTE | 2017-08-13 21:32 | PN ---
PROGRESS NOTE DATE OF SERVICE: 08/13/2017. REASON FOR FOLLOWUP VISIT: Complicated diverticulitis, colorectal fistula. INTERVAL HISTORY: The patient is seen on rounds this afternoon. The patient has been afebrile, breathing comfortably. No chest pain, cough. No nausea, vomiting and no diarrhea. EXAMINATION: Blood pressure is 109/56 with pulse of 93, temperature 98.1. She is 98% on room air. General description is an elderly female, lying in bed in no distress. Respiratory system: Unlabored breathing, clear to auscultation anteriorly. Heart S1, S2. Regular rate and rhythm. Abdomen soft, minimal tenderness. EXTREMITIES: No edema of the feet. LABS: Hemoglobin is 7.7, white count 7.1. BUN of 20, creatinine 0.60. DIAGNOSTIC IMPRESSION AND PLAN: Patient with complicated diverticulitis with colovesical fistula, status post diverting colostomy. PLAN: To finish therapy with oral Cipro and Flagyl for 7 days with close outpatient followup. MMODL / IJN: [id number] /
== END 2017-08-13 18:40 | DRG 854 ==
LOC: EC 17:30 → 5MS5E 20:51
PROVIDERS: ADMIT Internal Medicine; ATTEND Internal Medicine
PROC: 0D1N0Z4 Bypass Sigmoid Colon to Cutaneous, Open Approach (ICD-10-PCS; 2017-08-05)
PROC: 02HV33Z Insertion of Infusion Device into Superior Vena Cava, Percutaneous Approach (ICD-10-PCS; principal; 2017-08-08 10:40)
DX: A41.9 Sepsis, unspecified organism (principal); J90 Pleural effusion, not elsewhere classified; E44.0 Moderate protein-calorie malnutrition; N13.30 Unspecified hydronephrosis; E87.1 Hypo-osmolality and hyponatremia; K57.32 Diverticulitis of large intestine without perforation or abscess without bleeding; N30.90 Cystitis, unspecified without hematuria; J98.11 Atelectasis; N82.3 Fistula of vagina to large intestine; Z68.1 Body mass index [BMI] 19.9 or less, adult; D63.8 Anemia in other chronic diseases classified elsewhere; F03.90 Unspecified dementia, unspecified severity, without behavioral disturbance, psychotic disturbance, mood disturbance, and anxiety; E03.9 Hypothyroidism, unspecified; E78.5 Hyperlipidemia, unspecified; E87.6 Hypokalemia; F17.200 Nicotine dependence, unspecified, uncomplicated; I10 Essential (primary) hypertension; K21.9 Gastro-esophageal reflux disease without esophagitis; R62.7 Adult failure to thrive; Z79.4 Long term (current) use of insulin; Z85.048 Personal history of other malignant neoplasm of rectum, rectosigmoid junction, and anus; Z86.711 Personal history of pulmonary embolism; Z87.440 Personal history of urinary (tract) infections; Z90.49 Acquired absence of other specified parts of digestive tract; Z92.21 Personal history of antineoplastic chemotherapy; Z92.3 Personal history of irradiation; Z79.890 Hormone replacement therapy; Z79.899 Other long term (current) drug therapy
CPT/HCPCS: 36415; 36569; 71045; 74176; 74177; 76937; 77001; 80048; 80053; 81001; 82330; 83036; 83605; 83735; 84100; 84478; 85025; 85610; 85730; 86850; 86870; 86880; 86900; 86901; 86902; 87040; 87086; 93005; 94760; 96365; 99285